=== PATIENT | female | born 1955 | race Caucasian/White ===

== ENCOUNTER 2019-07-24 19:16 | Emergency (ER) | payer BC, SELFPAY ==
[2019-07-24] VITALS (8 sets, daily range): BP systolic 109–161; BP diastolic 48–62; PULSE 82–92; RESP 15–18; TEMP 36.8; O2SAT 94–98; BMI 26.6
[2019-07-24 19:36] LABS: Basophils % 0.1 % (0.1-2.0); Eosinophils % 0.6 % (0.1-12.0); Hematocrit 37.5 % (37.0-47.0); Hemoglobin 12.2 g/dL (12.2-16.2); Lymphocytes # 2.3 K/mm3 (0.7-4.5); Lymphocytes % 45.2 % (10-50); Mean Corpuscular HGB Conc 32.7 g/dL (31.8-35.4); Mean Corpuscular Hemoglobin 31.1 pg (27.0-31.2); Mean Corpuscular Volume 95.1 fl (81-99); Mean Platelet Volume 8.4 fl (7.4-10.4); Monocytes # 0.1 K/mm3 (0.1-1.0); Monocytes % 2.1 % (1.7-9.3); Neutrophils # 2.6 K/mm3 (1.8-7.8); Platelet Count 224 K/mm3 (142-424); Red Blood Count 3.94 M/mm3 (4.20-5.40); Red Cell Distribution Width 13.4 % (11.5-17.5); White Blood Count 5.1 K/mm3 (4.8-10.8)
[2019-07-24 19:50] LABS: Chloride 110 mmol/L (98-107); Potassium 4.1 mmoL/L (3.5-5.1); Sodium 141 mmol/L (136-145)
[2019-07-24 19:53] LABS: Alanine Aminotransferase 20 U/L (12-78); Albumin/Globulin Ratio 1.6 (1.1-1.8); Alkaline Phosphatase 45 U/L (38-126); Anion Gap 9.1 mEq/L (5-15); Aspartate Amino Transferase 36 U/L (14-36); Bilirubin,Total 0.4 mg/dl (0.2-1.3); Blood Urea Nitrogen 31 mg/dl (7-17); Carbon Dioxide 26 mmol/L (22.0-30.0); Creatinine Clearance Estimated 50 mL/min (50-200); Estimated Glomerular Filt Rate 41 ml/min (>60); GFR (African American) 50 ML/MIN (>60); Globulin 2.5 g/dL (1.3-3.2); Total Protein,Serum 6.5 g/dl (6.3-8.2)
[2019-07-24 19:54] LABS: Calcium 8.6 mg/dl (8.4-10.2); Glucose 132 mg/dl (74-100)
--- NOTE | 2019-07-24 20:15 | HMH.EDGENADL ---
ED Disposition Clinical Impression: Allergic reaction Qualifiers: Encounter type: initial encounter Qualified Code(s): T78.40XA - Allergy, unspecified, initial encounter Disposition: Home, Self-Care Condition on Discharge: Good Instructions: DI for Insect Bites and Stings, DI for General Allergic Reactions Additional Instructions: You have been evaluated for allergic reaction. Please avoid insect stings. Use epinephrine pen if needed. Follow-up with your primary care doctor this week. Referrals: Provider,Referral, [Primary Care Provider] - - Critical Care Critical Care Time: Yes Attestation: On 07/24/19, the high probability of a clinically significant, sudden or life threatening deterioration of the following system(s) required my full and direct attention, intervention and personal management. The time I documented below is in addition to time spent performing reported procedures but includes the following listed in this critical care notation. Total Critical Care Time: 45 Vital system(s) involved:: Circulatory Failure, Central Nervous System My critical care processes included: Assessment & monitoring of V/S Comment: Critical care time was used for management of severe allergic reaction. Monitoring of vital signs. Administration of intramuscular and intravenous medications. Frequent reassessment. Medical Decision Making - Medical Records Medical records reviewed: Yes: I reviewed the patient's medical records. - Ezio Inquiry Pt receiving controlled substance: No Vital Signs: 07/24/19 19:17 Temperature 98.2 F Temperature Source Oral Pulse Rate [Left Radial] 89 Respiratory Rate 16 Blood Pressure [Right Arm] 161/62 H Blood Pressure Mean [Right Arm] 95 Blood Pressure Source [Right Arm] Automatic Cuff Blood Pressure Position [Right Arm] Sitting 02 Sat by Pulse Oximetry 98 Oxygen Delivery Method Nasal Cannula Oxygen Flow Rate (LPM) 3 - Lab Data Lab Results 07/24/19 19:24: WBC 5.1, RBC 3.94 L, Hgb 12.2, Hct 37.5, MCV 95.1, MCH 31.1, MCHC 32.7, RDW 13.4, Plt Count 224, MPV 8.4, Neut % (Auto) 52.0, Lymph % (Auto) 45.2, [place] % (Auto) 2.1, Eos % (Auto) 0.6, Baso % (Auto) 0.1, Neut # (Auto) 2.6, Lymph # (Auto) 2.3, [place] # (Auto) 0.1, Eos # (Auto) 0.0, Baso # (Auto) 0.0 07/24/19 19:24: Sodium 141, Potassium 4.1, Chloride 110 H, Carbon Dioxide 26, Anion Gap 9.1, BUN 31 H, Creatinine 1.30 H, Estimated Creat Clear 50, Estimated GFR 41 L, Est GFR ( Amer) 50 L, Glucose 132 H, Calcium 8.6, Total Bilirubin 0.4, AST 36, ALT 20, Alkaline Phosphatase 45, Total Protein 6.5, Albumin 4.0, Globulin 2.5, Albumin/Globulin Ratio 1.6 Result diagrams: 07/24/19 19:24 07/24/19 19:24 Orders (Tests/Meds): ED MEDICATIONS Generic Name Dose Route Start Last Admin Trade Name Freq PRN Reason Stop Dose Admin Sodium Chloride 1,000 mls @ 999 mls/hr 07/24/19 19:30 Sod Chlor 0.9% 1000ml Bag IV 07/24/19 20:30 .Q1H1M DIANE Sodium Chloride 8 ml 07/24/19 19:30 Sodium Chloride 0.9% 10ml Vial IV 08/23/19 19:29 NEEDED PRN dilute pepcid Discontinued Medications Generic Name Dose Route Start Last Admin Trade Name Freq PRN Reason Stop Dose Admin Epinephrine HCl 0.3 mg 07/24/19 19:30 Epinephrine 1mg/Ml Amp IM 07/24/19 19:31 ONCE ONE Famotidine 20 mg 07/24/19 19:30 Pepcid 20mg/2ml Vial IV 07/24/19 19:31 ONCE ONE Medical Decision Narrative: In summary this is a 64-year-old female presenting to the emergency department with an insect sting to her left cheek, concern for an acute allergic reaction. Patient appears uncomfortable on arrival to the emergency department. Vital signs are stable, no tachycardia or hypotension. She has more than 1 system involved in allergic reaction with her dizziness and nausea. Patient taken emergently to a critical room. Placed on a monitor. She was given 0.3 mg of IM epinephrine. She had already received 25 mg of Benadryl with EMS.
== END 2019-07-24 23:00 | disposition home or self-care (01) ==
PROVIDERS: Emergency Provider Emergency Medicine
DX: T63.461A Toxic effect of venom of wasps, accidental (unintentional), initial encounter (principal); W57.XXXA Bitten or stung by nonvenomous insect and other nonvenomous arthropods, initial encounter; Y92.017 Garden or yard in single-family (private) house as the place of occurrence of the external cause; I10 Essential (primary) hypertension; Z88.2 Allergy status to sulfonamides; Z79.899 Other long term (current) drug therapy
CPT/HCPCS: 80053; 85025; 96365; 96372; 96375; 99283

== ENCOUNTER → 2020-04-24 12:56 | Outpatient (CLI) | payer MEDICARE, SELFPAY ==
--- NOTE | 2020-04-24 13:01 | XR_ITS ---
PROCEDURE: XR DEXA AXIAL SKELETON CLINICAL HISTORY: OSTEOPOROSIS COMPARISON: No exams were available for comparison FINDINGS: The right hip BMD is 0.601 with a T-score of -2.2. The left hip BMD is 0.644 with a T-score of -2.4. The lumbar spine BMD is 1.232 with a T-score of 1.7. IMPRESSION: This patient is considered osteopenic according to the World Health Organization criteria. Bone density is between 10 and 25 percent below young normal. Fracture risk is moderate. Treatment is advised. Based on these results a follow-up exam is recommended in 2 year. Dictated by: Modesto Juarez MD 04/25/2020 00:32 Modesto Juarez MD in [place] 04/25/2020 11:43
== END ==
PROVIDERS: PCP Family Medicine; Visit Provider Family Medicine
DX: M81.0 Age-related osteoporosis without current pathological fracture (principal)
CPT/HCPCS: 77080

== ENCOUNTER → 2020-05-05 14:09 | Outpatient (CLI) | payer MEDICARE, SELFPAY ==
--- NOTE | 2020-05-05 14:12 | XR_ITS ---
PROCEDURE: XR FOOT WT BEARING RT 3V CLINICAL INDICATION: pain, hammertoe COMPARISON: No exams were available for comparison FINDINGS: No fracture or dislocation. No lytic or blastic change. There is normal mineralization. Prominent sesamoid bone is present at the distal and lateral aspect of the 1st metatarsal. There is hammertoe deformity of the 4th and 5th toes. Other findings:None. IMPRESSION: Hammertoe 4th and 5th Dictated by: Modesto Juarez MD 05/05/2020 18:33 Modesto Juarez MD in [place] 05/05/2020 18:33
--- NOTE | 2020-05-05 14:12 | XR_ITS ---
PROCEDURE: XR FOOT WT BEARING LT 3V CLINICAL INDICATION: pain, hammertoe COMPARISON: CR ANKR3 ANKLE-RT-3 VIEWS from 06/12/2016 FINDINGS: No fracture or dislocation. No lytic or blastic change. There is normal mineralization. Hammertoe 2nd and 3rd toe and 4th and 5th toes. Osteoarthritic change 1st metatarsal tarsal junction with mild widening of the 1st intermetatarsal space. Other findings:None. IMPRESSION: Degenerative changes as described above with hammertoe of the 2nd through 5th toes Dictated by: Modesto Juarez MD 05/05/2020 18:35 Modesto Juarez MD in [place] 05/05/2020 18:35
== END ==
PROVIDERS: PCP Family Medicine; Visit Provider Podiatrist
DX: M20.42 Other hammer toe(s) (acquired), left foot (principal); M20.41 Other hammer toe(s) (acquired), right foot
CPT/HCPCS: 73630

== ENCOUNTER → 2020-12-29 07:52 | Outpatient (CLI) | payer MEDICARE, SELFPAY ==
--- NOTE | 2020-12-29 | ECG_ITS ---
APPROVED REPORT Exam: Resting ECG HR:64 bpm ECG Measurements Heart Rate 64 AXES OR 132 P 13 QRSd 88 QRS 12 QT 382 T 17 QTc 394 Conclusion Normal sinus rhythm Normal ECG Electronically signed by : Virgil Sy MD 12/29/2020 22:09:07
[2020-12-29 08:14] LABS: Basophils % 0.4 % (0.1-2.0); Eosinophils # 0.1 K/mm3 (0.0-0.4); Eosinophils % 2.1 % (0.1-12.0); Hematocrit 39.1 % (37.0-47.0); Hemoglobin 12.8 g/dL (12.2-16.2); Lymphocytes # 1.8 K/mm3 (0.7-4.5); Lymphocytes % 25.5 % (10-50); Mean Corpuscular HGB Conc 32.7 g/dL (31.8-35.4); Mean Corpuscular Hemoglobin 30.6 pg (27.0-31.2); Mean Corpuscular Volume 93.4 fl (81-99); Monocytes # 0.3 K/mm3 (0.1-1.0); Monocytes % 4.9 % (1.7-9.3); Neutrophils # 4.6 K/mm3 (1.8-7.8); Neutrophils % 67.1 % (37.0-80.0); Platelet Count 236 K/mm3 (142-424); Red Blood Count 4.19 M/mm3 (4.20-5.40); Red Cell Distribution Width 13.7 % (11.5-17.5); White Blood Count 6.9 K/mm3 (4.8-10.8)
[2020-12-29 08:49] LABS: Alanine Aminotransferase 25 U/L (12-78); Albumin Level 4.3 g/dl (3.5-5.0); Albumin/Globulin Ratio 1.9 (1.1-1.8); Alkaline Phosphatase 41 U/L (38-126); Anion Gap 9.8 mEq/L (5-15); Aspartate Amino Transferase 37 U/L (14-36); Bilirubin,Total 0.4 mg/dl (0.2-1.3); Blood Urea Nitrogen 20 mg/dl (7-17); Calcium 9.1 mg/dl (8.4-10.2); Carbon Dioxide 28 mmol/L (22.0-30.0); Chloride 107 mmol/L (98-107); Estimated Glomerular Filt Rate 63 ml/min (>60); GFR (African American) 76 ML/MIN (>60); Globulin 2.3 g/dL (1.3-3.2); Glucose 95 mg/dl (74-100); Potassium 3.8 mmoL/L (3.5-5.1); Sodium 141 mmol/L (136-145); Total Protein,Serum 6.6 g/dl (6.3-8.2)
== END ==
PROVIDERS: Visit Provider Family Medicine
DX: Z01.818 Encounter for other preprocedural examination (principal)
CPT/HCPCS: 36415; 80053; 85025; 93005

== ENCOUNTER → 2021-10-12 12:48 | Outpatient (CLI) | payer MEDICARE, SELFPAY ==
--- NOTE | 2021-10-12 12:55 | XR_ITS ---
FINAL REPORT CLINICAL HISTORY: SOB COMPARISON: November 25, 2018 FINDINGS: Two views of the chest were obtained. The heart size and pulmonary vascularity are within normal limits. The mediastinum is normal. There is elevation of the left hemidiaphragm. There is mild left lung base atelectasis. There is no pneumothorax. The bony thorax is intact. IMPRESSION: Mild left lung base atelectasis. Reviewed, Interpreted and Dictated by Mckay Dunaway III, MD Transcribed by Luda Albert Authenticated and [facility]
== END ==
PROVIDERS: PCP Family Medicine; Visit Provider Family Medicine
DX: R06.02 Shortness of breath (principal)
CPT/HCPCS: 71046

== ENCOUNTER → 2021-11-23 10:25 | Outpatient (CLI) | payer MEDICARE, OTHER, SELFPAY ==
--- NOTE | 2021-11-23 10:29 | XR_ITS ---
FINAL REPORT CLINICAL HISTORY: ATELECTASIS OF LT LUNG COMPARISON: 10/12/2021 FINDINGS: TWO-VIEW CHEST The heart size is normal. There is an elevated left hemidiaphragm, stable. The lungs are clear. There is no pneumothorax. IMPRESSION: No acute cardiopulmonary process. Reviewed, Interpreted and Dictated by Mckay Dunaway III, MD Transcribed by Jes Garvey Authenticated and . [facility]
== END ==
PROVIDERS: PCP Family Medicine; Visit Provider Family Medicine
DX: J98.11 Atelectasis (principal)
CPT/HCPCS: 71046

== ENCOUNTER → 2022-06-02 15:16 | Outpatient (CLI) | payer MEDICARE, OTHER, SELFPAY | PROVIDERS: PCP Family Medicine; Visit Provider Family Medicine | DX: R06.09 Other forms of dyspnea (principal) | CPT/HCPCS: 93306 ==

== ENCOUNTER → 2022-06-15 14:17 | Outpatient (POV) | payer MEDICARE, OTHER, SELFPAY | PROVIDERS: Visit Provider Specialist/Technologist | DX: Z00.00 Encounter for general adult medical examination without abnormal findings (principal) ==

== ENCOUNTER → 2022-06-21 08:00 | Outpatient (CLI) | payer MEDICARE, OTHER, SELFPAY ==
[2022-06-21 08:55] VITALS: PULSE 87; PULSE 90
== END ==
PROVIDERS: PCP Family Medicine; Visit Provider Family Medicine
DX: R06.09 Other forms of dyspnea (principal); R06.02 Shortness of breath
CPT/HCPCS: 94060; 94640; 94727; 94729

== ENCOUNTER → 2022-10-28 07:43 | Outpatient (CLI) | payer MEDICARE, OTHER, SELFPAY ==
--- NOTE | 2022-10-28 07:44 | FL_ITS ---
FINAL REPORT CLINICAL HISTORY: soa DAP 307.65 Fluoro time 0.59 FINDINGS: SNIFF TEST HISTORY: Shortness of breath. PROCEDURE: Fluoroscopy was utilized to observe the motion of the hemidiaphragms during normal respirations and while the patient was sniffing. FINDINGS: Examination is somewhat limited due to small field of view. The left hemidiaphragm is elevated. There appears to be paradoxical movement of the left michael-diaphragm. The right hemidiaphragm moves appropriately. A total of 8 cine runs were saved. 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 Reviewed, Interpreted and Dictated by Mckay Dunaway III, MD Transcribed by Ingrid Lambert PA-C Authenticated and [facility]
== END ==
PROVIDERS: PCP Family Medicine; Visit Provider Internal Medicine Pulmonary Disease
DX: J98.6 Disorders of diaphragm (principal)
CPT/HCPCS: 76000

== ENCOUNTER 2023-01-08 09:58 | Emergency (ER) | payer MEDICARE, OTHER, SELFPAY ==
[2023-01-08 11:00] VITALS: BP 133/65; PULSE 88; RESP 21; TEMP 37.4; O2SAT 97; BMI 27.4
--- NOTE | 2023-01-08 11:19 | EXP.UTC ---
Discharge Plan Disposition Patient Disposition: Home, Self-Care Condition: Good Prescriptions Prescriptions: New methylprednisolone [Medrol (Maurice)] 4 mg tablets,dose pack See Rx Instructions .Route .COMPLEX 6 Days Qty: 21 0RF Rx Instructions: taper pack; amoxicillin-pot clavulanate 875-125 mg Tablet 1 tab PO Q12H Qty: 14 0RF No Action gabapentin 300 mg capsule 300 mg PO DAILY alendronate 70 mg tablet 70 mg PO WEEKLY amlodipine 5 mg tablet 5 mg PO DAILY omeprazole 40 mg capsule,delayed release(DR/EC) 40 mg PO DAILY irbesartan 300 mg tablet 300 mg PO DAILY budesonide-formoterol [Symbicort] 80-4.5 mcg/actuation HFA aerosol inhaler 1 inh inhalation BID 90 Days Qty: 10.2 2RF citalopram 20 MG tablet 10 mg PO DAILY bupropion HCl 300 MG tablet extended release 24 hr 300 mg PO DAILY epinephrine 0.3 MG/0.3 ML auto-injector 0.3 mg IM ONCE Qty: 1 0RF Referrals Follow up/Referrals: Cuba Mcneill MD [Primary Care Provider] - See instructions Activity Restrictions/Add. Instructions Additional Instructions/Restrictions: *Monitor Temp, Over the counter Motrin or Tylenol as directed/as needed Tylenol every 4 hours and Motrin every 6 hours (as long as your family doctor has told you that you can take it) for fever or pain. and straight to ER if unable to lower temp less than 101.0 after medication given *Warm salt water gargles may help to soothe the throat *Throat Lozenges? *Warm fluids like tea with honey may help to soothe the throat? *Sleep elevated *Humidifier/Vaporizer Take medication as prescribed Follow up IMMEDIATELY for new or worsening symptoms or no Noticeable improvement over the next 48-72 hours. 911 for difficulty breathing or swallowing Clinical Impressions Clinical Impression: Sinusitis Qualifiers: Sinusitis location: unspecified location Chronicity: unspecified Qualified Code(s): J32.9 - Chronic sinusitis, unspecified Instructions Patient Instructions: DI for Sinusitis, Sinusitis Discharge ED Provider: Sarah Gonzalez [facility] General Stated complaint: possible sinus infection Mode of Arrival: Ambulatory Source of Information: Patient Limitations: No Limitations Time Seen by Provider: 01/08/23 11:19 Description of Symptoms (Recalled from Triage Doc. by RN): PATIENT C/O COUGH, SINUS HEADACHE/PRESSURE, AND GREEN SINUS DRAINAGE X 3-4 DAYS HEENT Symptoms (Recalled from RN notes): Yes Resp Symptoms (Recalled from RN notes): Yes Skin Symptoms (Recalled from RN notes): No MS Symptoms (Recalled from RN notes): No Functional Status (Recalled from RN notes): WNL History of Present Illness Provider Complaint: Patient states that she has been fighting a sinus infection for awhile but over the last 4-5 days it has got worse and her drainage changed colors and at times she is blowing out thick greenish colored mucous States today the pressure behind her eyes was worse and she was having a headache so she came in to get checked Related Data Home Medications Medication Instructions Recorded Confirmed bupropion HCl 300 mg 24 hr tablet, 300 mg PO DAILY mood 05/24/18 11/03/22 extended release citalopram 20 mg tablet 10 mg PO DAILY Depression 05/24/18 11/03/22 amlodipine 5 mg tablet 5 mg PO DAILY 04/25/22 11/03/22 irbesartan 300 mg tablet 300 mg PO DAILY 04/25/22 11/03/22 omeprazole 40 mg capsule,delayed 40 mg PO DAILY 04/25/22 11/03/22 release alendronate 70 mg tablet 70 mg PO WEEKLY 06/20/22 11/03/22 gabapentin 300 mg capsule 300 mg PO DAILY 06/20/22 11/03/22 Previous Rx's Medication Instructions Recorded epinephrine 0.3 mg/0.3 mL 0.3 mg (0.3 mL) IM ONCE ##1 07/24/19 injection, auto-injector budesonide-formoterol HFA 80 1 inh inhalation BID shortness of 11/03/22 mcg-4.5 mcg/actuation aerosol breath or wheezing 90 days #10.2 inhaler (Symbicort) grams amoxicillin 875 mg-potassium 1 t
[2023-01-08 11:32] VITALS: BP 133/65; PULSE 88; RESP 21; TEMP 37.4; O2SAT 97
== END 2023-01-08 11:34 | disposition home or self-care (01) ==
PROVIDERS: Emergency Provider Nurse Practitioner; PCP Family Medicine
DX: J01.90 Acute sinusitis, unspecified (principal); R51.9 Headache, unspecified; R09.81 Nasal congestion; R09.82 Postnasal drip; J45.909 Unspecified asthma, uncomplicated; K21.9 Gastro-esophageal reflux disease without esophagitis
CPT/HCPCS: 99204; 99212; G0463

== ENCOUNTER → 2023-01-12 09:02 | Outpatient (POV) | payer MEDICARE, OTHER, SELFPAY ==
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
[2023-01-12 09:56] VITALS: BP 147/69; PULSE 83; RESP 18; O2SAT 95; BMI 27.4
== END ==
PROVIDERS: PCP Family Medicine; Visit Provider Nurse Practitioner Family
DX: M26.609 Unspecified temporomandibular joint disorder, unspecified side (principal); H93.11 Tinnitus, right ear
CPT/HCPCS: 99202; G0463

== ENCOUNTER 2023-01-20 13:27 | Day surgery (SDC) | payer MEDICARE, OTHER, SELFPAY ==
[2023-01-20 13:41] VITALS: BP 124/63; PULSE 87; RESP 18; O2SAT 94; BMI 27.1
[2023-01-20 14:05] VITALS: BP 110/63; PULSE 82; RESP 18; O2SAT 97
[2023-01-20 14:06] VITALS: BP 110/63; PULSE 82; RESP 18; O2SAT 97
[2023-01-20 14:14] VITALS: BP 109/55; PULSE 81; RESP 20
--- NOTE | 2023-01-20 15:42 | P.PCN_ITS ---
Procedure Date: 01/20/23 Time: 15:42 Anesthesiologist:: Isaias Ferrer MD Complications:: None Pre-procedure Diagnosis:: Right-sided TMJ dysfunction Post-procedure Diagnosis:: Same Indications for Procedure:: This patient a pleasant 67-year-old white female who was referred from [facility] with right-sided TMJ dysfunction. She does grind her teeth with right-sided jaw pain. We will do a right TMJ injection today to see if this will help with her symptoms. Procedure Details:: Temporomandibular joint injection Informed consent was obtained risk and benefits of the procedure were explained to the patient. Patient was taken the procedure room. The area in front of the right tragus was prepped using alcohol prep. A 25-gauge needle was then inserted and advanced into the right temporomandibular joint. We injected 3 mL lidocaine 1% and Depo-Medrol 40 mg into the right temporomandibular joint. The patient tolerated the procedure well with no complications. Plan and Disposition:: Will follow-up with this patient in 2 weeks. Will reevaluate symptoms at that time.
--- NOTE | 2023-01-20 15:45 | P.PCN_ITS ---
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 She has right-sided pain over her eye. This is in the distribution of the supraorbital nerve. We will plan on a right supraorbital nerve block today to see if this helps with her right-sided eye pain. Procedure Details:: Supraorbital nerve block Informed consent was obtained risk and benefits of the procedure were explained to the patient. Patient was taken to the procedure room she was placed supine on the procedure table. The area over the right eye was prepped using an alcohol prep. A 25-gauge needle was inserted and we injected 5 mL lidocaine 1% and Depo-Medrol 40 mg into the area of the right supraorbital nerve. The kajal ent tolerated the procedure well with no complications. Plan and Disposition:: Will follow-up with this patient in 2 weeks. Will reevaluate her symptoms at that time.
== END 2023-01-20 14:15 | disposition home or self-care (01) ==
LOC: SC.PAINP 13:28
PROVIDERS: PCP Family Medicine; Visit Provider Anesthesiology
DX: M26.601 Right temporomandibular joint disorder, unspecified (principal); R68.84 Jaw pain
CPT/HCPCS: 20605; J1040

== ENCOUNTER 2023-02-13 15:43 | Emergency (ER) | payer MEDICARE, OTHER, SELFPAY ==
[2023-02-13 16:30] VITALS: BP 120/60; PULSE 90; RESP 22; TEMP 37.8; O2SAT 95; BMI 26.9
[2023-02-13 16:53] VITALS: BP 120/60; PULSE 90; RESP 22; TEMP 37.8; O2SAT 95
[2023-02-13 16:53] LABS: UTC Influenza A Antigen Positive (Negative); UTC Influenza B Antigen Negative (Negative)
--- NOTE | 2023-02-13 16:58 | ED_ITS ---
Discharge Plan Disposition Patient Disposition: Home, Self-Care Condition: Good Prescriptions Prescriptions: New oseltamivir [Tamiflu] 75 mg capsule 75 mg PO Q12H 5 Days Qty: 10 0RF promethazine-DM 6.25-15 mg/5 mL syrup 5 ml PO Q6H PRN (Reason: cough) Qty: 118 0RF guaifenesin [Mucinex] 600 mg tablet extended release 12hr 600 mg PO BID PRN (Reason: cough) Qty: 20 0RF No Action gabapentin 300 mg capsule 300 mg PO DAILY alendronate 70 mg tablet 70 mg PO WEEKLY amlodipine 5 mg tablet 5 mg PO DAILY omeprazole 40 mg capsule,delayed release(DR/EC) 40 mg PO DAILY irbesartan 300 mg tablet 300 mg PO DAILY budesonide-formoterol [Symbicort] 80-4.5 mcg/actuation HFA aerosol inhaler 2 inh inhalation BID 90 Days Qty: 10.2 2RF citalopram 20 MG tablet 10 mg PO DAILY bupropion HCl 300 MG tablet extended release 24 hr 300 mg PO DAILY epinephrine 0.3 MG/0.3 ML auto-injector 0.3 mg IM ONCE Qty: 1 0RF Referrals Follow up/Referrals: Cuba Mcneill MD [Primary Care Provider] - See instructions Activity Restrictions/Add. Instructions Additional Instructions/Restrictions: * Start Tamiflu today if you are going to take it. Discussed risk and possible benefits. * Lots of rest * Increase Fluids water, Gatorade, powerade, pedialyte,if infant/toddler/child * Alternate Tylenol and / or ibuprofen as discussed for fever, aches, chills Follow up IMMEDIATELY with your family doctor for new or worsening Symptoms OR no noticeable improvement over the next 48-72 hours, 911 for difficulty or breathing * You or your child area contagious until no fever, aches, chills for 24 hours with medication for symptoms * Help Prevent the spread of influenza: * ?Wash your hands often. Use soap and water. Wash your hands after you use the bathroom, change a child's diapers, or sneeze. Wash your hands before you prepare or eat food. Use gel hand cleanser that has 60% alcohol, when soap and water are not available. Do not touch your eyes, nose, or mouth unless you have washed your hands first. * Cover your mouth when you sneeze or cough. Cough into a tissue or the bend of your arm. If you use a tissue, throw it away immediately and wash your hands. * Clean shared items with a germ-killing top cleaner. Clean table surfaces, doorknobs, and light switches. Do not share towels, silverware, and dishes with people who are sick. Wash bed sheets, towels, silverware, and dishes with soap and water. * Wear a mask over your mouth and nose if you are sick. The face mask may help protect others from becoming infected with the flu. Wear the mask when in common areas of your home or if you seek care with a healthcare provider. * Stay away from others if you are sick. Stay at home until 24 hours after your fever and symptoms are gone. Clinical Impressions Clinical Impression: Influenza Instructions Patient Instructions: Influenza, DI for Influenza -- Adult Discharge ED Provider: Sarah Gonzalez [facility] [place] Stated complaint: cough, SOA, congestion Mode of Arrival: Ambulatory Source of Information: Patient Limitations: No Limitations Time Seen by Provider: 02/13/23 16:59 Description of Symptoms (Recalled from Triage Doc. by RN): PATIENT C/O COUGH, SOA, HEADACHE AND CONGESTION X 3 DAYS HEENT Symptoms (Recalled from RN notes): Yes Resp Symptoms (Recalled from RN notes): Yes Skin Symptoms (Recalled from RN notes): No MS Symptoms (Recalled from RN notes): No Functional Status (Recalled from RN notes): WNL History of Present Illness Provider Complaint: Patient states that she has been having cough, sinus congestion, fever, chills, body aches and coughing so much at times it makes her feels SOA States that she hasnt felt in the last couple of days worried that she may have the flu or something Related Data Home Medications Medication Instructions Recorded Confirmed bupropion HCl 300 mg 24 hr tablet, 300 mg PO DAILY mood 05/24/18 02/02/23 extended release citalopram 20 mg tablet 10 mg PO DAILY Depression 05/24/18 02/02/23 amlodipine 5 mg tablet 5 mg PO DAILY 04/25/22 02/02/23 irbesartan 300 mg tablet 300 mg PO DAILY 04/25/22 02/02/23 omeprazole 40 mg capsule,delayed 40 mg PO DAILY 04/25/22 02/02/23 release alendronate 70 mg tablet 70 mg PO WEEKLY 06/20/22 02/02/23 gabapentin 300 mg capsule 300 mg PO DAILY 06/20/22 02/02/23 Previous Rx's Medication Instructions Recorded epinephrine 0.3 mg/0.3 mL 0.3 mg (0.3 mL) IM ONCE ##1 07/24/19 injection, auto-injector budesonide-formoterol HFA 80 2 inh inhalation BID shortness of 02/02/23 mcg-4.5 mcg/actuation aerosol breath or wheezing 90 days #10.2 inhaler (Symbicort) grams guaifenesin 600 mg tablet, 600 mg PO BID PRN cough #20 tabs 02/13/23 extended release 12 hr (Mucinex) oseltamivir 75 mg capsule (Tamiflu) 75 mg PO Q12H 5 days #10 caps 02/13/23 promethazine-DM 6.25 mg-15 mg/5 mL 5 ml PO Q6H PRN cough #118 mL 02/13/23 oral syrup Allergies Allergy/AdvReac Type Severity Reaction Status Date / Time Sulfa (Sulfonamide Allergy Unknown Verified 02/02/23 11:17 Antibiotics) [SULFA (SULFONAMIDE ANTIBIOTICS)] Worker's Comp Is this a Worker's Comp case?: No [facility] Disclaimer: The information contained in this section may have been updated after the patient was seen, as this information can be updated by other users. Medical History Arthritis Asthma Depression Diaphragm dysfunction Dyspnea on exertion Elevated diaphragm GERD (gastroesophageal reflux disease) History of 2019 novel coronavirus disease (COVID-19) Scoliosis Tinnitus Tinnitus of right ear TMJ (temporomandibular joint disorder) Surgical History H/O total hysterectomy History of arthroscopy of both knees History of carpal tunnel release of both wrists Hx of colonoscopy Family History Other Cancer Social History Smoking Status: Never smoker alcohol intake: never current occupational status: retired Travel in the last 8 weeks: None household members: spouse ROS Obtained: Yes All systems reviewed & no additional complaints except as documented and Yes Systems reviewed as appropriate & no additional complaints except as documented Constitutional Constitutional: Reports system reviewed and no additional complaints, except as documented, Reports as per HPI, Reports body ache, Reports chills, Reports fever(s) and Reports headache(s) ENT Ears, Nose, Mouth, and Throat: Reports system reviewed and no additional complaints, except as documented, Reports as per HPI, Reports headache(s) and Reports nasal congestion Cardiovascular Cardiovascular: Reports system reviewed and no additional complaints, except as documented and Reports as per HPI Respiratory Respiratory: Reports system reviewed and no additional complaints, except as documented, Reports as per HPI, Reports shortness of breath (after coughing) and Reports cough Gastrointestinal Gastrointestingal: Reports system reviewed and no additional complaints, except as documented and as per HPI Neurologic Neurologic: Reports headache(s) Physical Exam General General appearance: alert and in no apparent distress ENT ENT exam: Present mucous membranes moist Expanded ENT Exam Nose exam: Absent sinus tenderness Throat exam: Present normal inspection Respiratory Respiratory exam: Present normal lung sounds bilaterally; Absent respiratory distress or wheezes Cardiovascular Cardiovascular exam: Present regular rate, normal rhythm and normal heart sounds Neurological Exam Neurological exam: Present alert, oriented X3 and normal gait Medical Decision Making Ezio Inquiry Pt receiving controlled substance: No Ezio was queried for this patient: No Vital Signs: 02/13/23 16:30 02/13/23 16:53 Temperature 100.1 F H 100.1 F H Temperature Source Oral Pulse Rate 90 Pulse Rate [Right Brachial] 90 Respiratory Rate 22 22 Blood Pressure 120/60 Blood Pressure [Right Arm] 120/60 Blood Pressure Mean [Right Arm] 80 Blood Pressure Source [Right Arm] Automatic Cuff Blood Pressure Position [Right Arm] Sitting 02 Sat by Pulse Oximetry 95 Oxygen Delivery Method Room Air Lab Data Lab results reviewed: Yes I reviewed the patient's lab results. Lab Results 02/13/23 16:45: Influenza Type A Ag Positive A, Influenza Type B Ag Negative
== END 2023-02-13 17:27 | disposition home or self-care (01) ==
PROVIDERS: Emergency Provider Nurse Practitioner; PCP Family Medicine
DX: J10.1 Influenza due to other identified influenza virus with other respiratory manifestations (principal); R06.02 Shortness of breath; R51.9 Headache, unspecified; R05.9 Cough, unspecified; R09.81 Nasal congestion; R50.9 Fever, unspecified; M79.18 Myalgia, other site; K21.9 Gastro-esophageal reflux disease without esophagitis
CPT/HCPCS: 87804; 99212; 99214; G0463

== ENCOUNTER 2023-04-05 08:33 | Emergency (ER) | payer MEDICARE, OTHER, SELFPAY ==
[2023-04-05 09:20] VITALS: BP 121/64; PULSE 87; RESP 16; TEMP 37.2; O2SAT 94; BMI 26.6
--- NOTE | 2023-04-05 09:27 | ED_ITS ---
Discharge Plan Disposition Patient Disposition: Home, Self-Care Condition: Good Prescriptions Prescriptions: New amoxicillin-pot clavulanate 875-125 mg Tablet 1 tab PO Q12H 7 Days Qty: 14 0RF guaifenesin [Mucinex] 600 mg tablet extended release 12hr 1,200 mg PO BID PRN (Reason: cough) Qty: 20 0RF fluticasone propionate [Flonase Allergy Relief] 50 mcg/actuation spray,suspension 2 spray intranasal DAILY Qty: 16 0RF Rx Instructions: administer into each nostril daily No Action gabapentin 300 mg capsule 300 mg PO DAILY alendronate 70 mg tablet 70 mg PO WEEKLY amlodipine 5 mg tablet 5 mg PO DAILY omeprazole 40 mg capsule,delayed release(DR/EC) 40 mg PO DAILY irbesartan 300 mg tablet 300 mg PO DAILY budesonide-formoterol [Symbicort] 80-4.5 mcg/actuation HFA aerosol inhaler 2 inh inhalation BID 90 Days Qty: 10.2 2RF citalopram 20 MG tablet 10 mg PO DAILY bupropion HCl 300 MG tablet extended release 24 hr 300 mg PO DAILY epinephrine 0.3 MG/0.3 ML auto-injector 0.3 mg IM ONCE Qty: 1 0RF oseltamivir [Tamiflu] 75 mg capsule 75 mg PO Q12H 5 Days Qty: 10 0RF promethazine-DM 6.25-15 mg/5 mL syrup 5 ml PO Q6H PRN (Reason: cough) Qty: 118 0RF guaifenesin [Mucinex] 600 mg tablet extended release 12hr 600 mg PO BID PRN (Reason: cough) Qty: 20 0RF Referrals Follow up/Referrals: Cuba Mcneill MD [Primary Care Provider] - See instructions Activity Restrictions/Add. Instructions Additional Instructions/Restrictions: *Monitor Temp, Over the counter Motrin or Tylenol as directed/as needed Tylenol every 4 hours and Motrin every 6 hours (as long as your family doctor has told you that you can take it) for fever or pain. and straight to ER if unable to lower temp less than 101.0 after medication given *Warm salt water gargles may help to soothe the throat *Throat Lozenges? *Warm fluids like tea with honey may help to soothe the throat? *Sleep elevated *Humidifier/Vaporizer *Flonase 2 sprays in each nostril daily but be aware that it may take 2-3 days before you notice improvement Your throat swab was sent for culture. Those results are typically sent to your primary care. Be sure to follow up in 2-3 days with your family doctor/primary care physician if no improvement so they can review those result and treat if necessary. If you don?t have a primary care doctor, I recommend you get one but in the mean time, you will have to return to a walk in clinic Follow up IMMEDIATELY for new or worsening symptoms or no Noticeable improvement over the next 48-72 hours. 911 for difficulty breathing or swallow ing Clinical Impressions Clinical Impression: Otitis media Qualifiers: Otitis media type: unspecified Laterality: left Qualified Code(s): H66.92 - Otitis media, unspecified, left ear Instructions Patient Instructions: DI for Sinusitis, Sore Throat, Middle Ear Infection Discharge ED Provider[place] [facility] [place] General Stated complaint: sore throat, ear pain, cough Mode of Arrival: Ambulatory Source of Information: Patient Limitations: No Limitations Time Seen by Provider: 04/05/23 09:27 Description of Symptoms (Recalled from Triage Doc. by RN): Patient reports sore throat, ear pain and cough. HEENT Symptoms (Recalled from RN notes): Yes Resp Symptoms (Recalled from RN notes): No Skin Symptoms (Recalled from RN notes): No MS Symptoms (Recalled from RN notes): No Functional Status (Recalled from RN notes): wnl History of Present Illness Provider Complaint: Patient states that she has been having sore throat pain in her ears, cough and loss of voice for several days States that today she was still not feeling any better so she came in to get checked Related Data Home Medications Medication Instructions Recorded Confirmed bupropion HCl 300 mg 24 hr tablet, 300 mg PO DAILY mood 05/24/18 02/02/23 extended release citalopram 20 mg tablet 10 mg PO DAILY Depression 05/24/18 02/02/23 amlodipine 5 mg tablet 5 mg PO DAILY 04/25/22 02/02/23 irbesartan 300 mg tablet 300 mg PO DAILY 04/25/22 02/02/23 omeprazole 40 mg capsule,delayed 40 mg PO DAILY 04/25/22 02/02/23 release alendronate 70 mg tablet 70 mg PO WEEKLY 06/20/22 02/02/23 gabapentin 300 mg capsule 300 mg PO DAILY 06/20/22 02/02/23 Previous Rx's Medication Instructions Recorded epinephrine 0.3 mg/0.3 mL 0.3 mg (0.3 mL) IM ONCE ##1 07/24/19 injection, auto-injector budesonide-formoterol HFA 80 2 inh inhalation BID shortness of 02/02/23 mcg-4.5 mcg/actuation aerosol breath or wheezing 90 days #10.2 inhaler (Symbicort) grams guaifenesin 600 mg tablet, 600 mg PO BID PRN cough #20 tabs 02/13/23 extended release 12 hr (Mucinex) oseltamivir 75 mg capsule (Tamiflu) 75 mg PO Q12H 5 days #10 caps 02/13/23 promethazine-DM 6.25 mg-15 mg/5 mL 5 ml PO Q6H PRN cough #118 mL 02/13/23 oral syrup amoxicillin 875 mg-potassium 1 tab PO Q12H 7 days #14 tabs 04/05/23 clavulanate 125 mg tablet fluticasone propionate 50 2 spray intranasal DAILY #16 grams 04/05/23 mcg/actuation nasal spray,suspension (Flonase Allergy Relief) guaifenesin 600 mg tablet, 1,200 mg PO BID PRN cough #20 tabs 04/05/23 extended release 12 hr (Mucinex) Allergies Allergy/AdvReac Type Severity Reaction Status Date / Time Sulfa (Sulfonamide Allergy Unknown Verified 02/02/23 11:17 Antibiotics) [SULFA (SULFONAMIDE ANTIBIOTICS)] Worker's Comp Is this a Worker's Comp case?: No [facility] Disclaimer: The information contained in this section may have been updated after the patient was seen, as this information can be updated by other users. Medical History Arthritis Asthma Depression Diaphragm dysfunction Dyspnea on exertion Elevated diaphragm GERD (gastroesophageal reflux disease) History of 2019 novel coronavirus disease (COVID-19) Scoliosis Tinnitus Tinnitus of right ear TMJ (temporomandibular joint disorder) Surgical History H/O total hysterectomy History of arthroscopy of both knees History of carpal tunnel release of both wrists Hx of colonoscopy Family History Other Cancer Social History Smoking Status: Never smoker alcohol intake: never current occupational status: retired Travel in the last 8 weeks: None household members: spouse ROS Obtained: Yes All systems reviewed & no additional complaints except as documented and Yes Systems reviewed as appropriate & no additional complaints except as documented Constitutional Constitutional: Reports system reviewed and no additional complaints, except as documented and Reports as per HPI ENT Ears, Nose, Mouth, and Throat: Reports system reviewed and no additional complaints, except as documented and Reports as per HPI Cardiovascular Cardiovascular: Reports system reviewed and no additional complaints, except as documented and Reports as per HPI Physical Exam General General appearance: alert and in no apparent distress ENT ENT exam: Present mucous membranes moist Expanded ENT Exam TM/Canal exam: Left TM: erythema and bulging Nose exam: Present sinus tenderness Throat exam: Present other (Pharyngeal erythema noted with PND) Respiratory Respiratory exam: Present normal lung sounds bilaterally; Absent respiratory distress or wheezes Cardiovascular Cardiovascular exam: Present regular rate, normal rhythm and normal heart sounds Abdominal Exam Abdominal exam: Present soft and normal bowel sounds; Absent distention or tenderness Neurological Exam Neurological exam: Present alert, oriented X3 and normal gait Medical Decision Making Ezio Inquiry Pt receiving controlled substance: No Ezio was queried for this patient: No Vital Signs: 04/05/23 09:20 Temperature 99.0 F Temperature Source Oral Pulse Rate [Radial] 87 Respiratory Rate 16 Blood Pressure [Right Arm] 121/64 Blood Pressure Mean [Right Arm] 83 Blood Pressure Source [Right Arm] Automatic Cuff Blood Pressure Position [Right Arm] Sitting 02 Sat by Pulse Oximetry 94 L Oxygen Delivery Method Room Air Lab Data Lab results reviewed: Yes I reviewed the patient's lab results.
[2023-04-05 09:43] VITALS: BP 121/64; PULSE 87; RESP 16; TEMP 37.2; O2SAT 94
[2023-04-05 12:00] LABS: UTC Strep Screen (Rapid) Negative (Negative)
[2023-04-05 12:01] LABS: UTC Influenza A Antigen Negative (Negative); UTC Influenza B Antigen Negative (Negative)
== END 2023-04-05 09:44 | disposition home or self-care (01) ==
PROVIDERS: Emergency Provider Nurse Practitioner; PCP Family Medicine
DX: H66.92 Otitis media, unspecified, left ear (principal); R05.9 Cough, unspecified; R07.0 Pain in throat; K21.9 Gastro-esophageal reflux disease without esophagitis
CPT/HCPCS: 87804; 87880; 99212; 99214; G0463

== ENCOUNTER 2023-07-26 09:56 | Outpatient (POV) | payer MEDICARE, OTHER, SELFPAY | END 2023-07-26 23:59 | disposition home or self-care (01) | LOC: SC 09:56 | PROVIDERS: Visit Provider Specialist/Technologist | DX: Z00.00 Encounter for general adult medical examination without abnormal findings (principal) ==

== ENCOUNTER 2023-08-21 13:33 | Outpatient (CLI) | payer MEDICARE, OTHER, SELFPAY ==
--- NOTE | 2023-08-21 13:35 | MR_ITS ---
FINAL REPORT CLINICAL HISTORY: SNHL and Mixed hearing loss, right ear. BILATERAL EAR PAIN. HEADACHE COMPARISON: None FINDINGS: Multiplanar MR imaging of the brain was performed without and with contrast, with attention to the posterior fossa, cerebellopontine angles and internal auditory canals. There is no evidence of intracranial hemorrhage or mass. Mild age-appropriate atrophy is present. There is no evidence of shift of the midline structures. No area of abnormal restricted diffusion is identified. Normal major vessel vascular flow voids are seen. No abnormal contrast enhancement is identified within the brain. No mass or abnormal contrast enhancement is seen within the cerebellopontine angles or internal auditory canals. No focal abnormality is identified of the temporal bones. IMPRESSION: No acute intracranial abnormality identified. No mass or abnormal contrast enhancement identified within the cerebellopontine angles or internal auditory canals. Mild age-appropriate atrophy is present. Reviewed, Interpreted and Dictated by Mckay Dunaway III, MD Transcribed by Claudette Bennett Authenticated and [facility]
[2023-08-21] MEDS: GADOTERIDOL INJ 20ML SYRINGE 15 ML IV (14:32)
[2023-08-21] MEDS: SODIUM CHLORIDE 0.9% 10ML FLUSH SYRINGE 10 ML IV (14:33)
== END 2023-08-21 23:59 | disposition home or self-care (01) ==
LOC: RAD 13:35
PROVIDERS: PCP Family Medicine; Visit Provider Otolaryngology
DX: H90.71 Mixed conductive and sensorineural hearing loss, unilateral, right ear, with unrestricted hearing on the contralateral side (principal); H90.5 Unspecified sensorineural hearing loss; S03.00XA Dislocation of jaw, unspecified side, initial encounter
CPT/HCPCS: 70553; A9576

== ENCOUNTER 2023-08-24 10:09 | Outpatient (CLI) | payer MEDICARE, OTHER, SELFPAY ==
--- NOTE | 2023-08-24 10:13 | XR_ITS ---
FINAL REPORT CLINICAL HISTORY: Foot Pain COMPARISON: 05/05/2020 FINDINGS: LEFT FOOT Three views of the left foot demonstrate no acute fracture or dislocation. There is severe degenerative change at the medial cuneiform metatarsal joint with subchondral cysts present. There is a soft tissue calcification extending laterally. Mild degenerative changes are noted elsewhere in the foot. There are multiple hammertoes. IMPRESSION: Degenerative/chronic changes without acute bony abnormality. Reviewed, Interpreted and Dictated by Mckay Dunaway III, MD Transcribed by Venita Michael Authenticated and [facility]
--- NOTE | 2023-08-24 10:13 | XR_ITS ---
FINAL REPORT CLINICAL HISTORY: Foot pain COMPARISON: 05/05/2020 FINDINGS: RIGHT FOOT 3 views of the right foot were obtained. There is no acute fracture or dislocation. There is mild degenerative change. Chronic calcification is noted extending laterally from the head of the first metatarsal. Soft tissues are unremarkable. IMPRESSION: Degenerative/chronic changes without acute bony abnormality. Reviewed, Interpreted and Dictated by Mckay Dunaway III, MD Transcribed by Venita Michael Authenticated and . [facility]
== END 2023-08-24 23:59 | disposition home or self-care (01) ==
LOC: RAD 10:10
PROVIDERS: PCP Family Medicine; Visit Provider Podiatrist
DX: M79.671 Pain in right foot; M79.672 Pain in left foot
CPT/HCPCS: 73630

== ENCOUNTER 2023-10-09 15:08 | Outpatient (POV) | payer MEDICARE, OTHER, SELFPAY ==
[2023-10-09 15:20] VITALS: BP 134/75; PULSE 75; RESP 16; O2SAT 96; BMI 26.6
--- NOTE | 2023-10-09 15:47 | EXP.PAIN.SOA ---
[facility] Disclaimer: The information contained in this section may have been updated after the patient was seen, as this information can be updated by other users. Medical History (Updated 08/29/23 @ 11:17 by Veda Tipton APRN) Left ear pain Chronic otitis externa Mixed hearing loss of right ear SNHL (sensorineural hearing loss) TMJ (dislocation of temporomandibular joint) Asthma Diaphragm dysfunction Scoliosis History of 2019 novel coronavirus disease (COVID-19) Elevated diaphragm Dyspnea on exertion Arthritis GERD (gastroesophageal reflux disease) Depression TMJ (temporomandibular joint disorder) Tinnitus Tinnitus of right ear Surgical History Hx of colonoscopy H/O total hysterectomy History of arthroscopy of both knees History of carpal tunnel release of both wrists Family History Other Cancer Social History Smoking Status: Never smoker alcohol intake: never current occupational status: unemployed Travel in the last 8 weeks: None household members: spouse PM Subjective & Objective Subjective Subjective:: Patient is a pleasant 68-year-old female who presents today for worsening pain. Today she rates her pain pain 5 out of 10. Patient denies any new trauma or injury. Patient has been seen in our office in the past for TMJ dysfunction. Patient did get a temporomandibular joint injection back on January along the right side that did provide more than 50% relief and lasted at least a few months. Patient states that the popping actually just came back on the right side within the last 6 weeks. Patient states that that injection did give her overall improvement and she was able to do more with decreased pain. Patient does state currently her pain is all along the left side canal. Patient is experiencing worsening pain with chewing and popping. Patient has used mouthguard's and had multiple dental procedures including bridges due to the worsening pain and chipped teeth. Patient does state that she has her jaw crooked which does play a major role in the worsening pain. Patient is interested in repeating her prior injections along the left side. She has tried and failed conservative therapy including continued at home stretching exercise as well as massage therapy that she goes to on a regular basis. Her Ezio has been reviewed and is appropriate. Review of Systems: General: No recent weight changes, no fever, no sleep disturbances Respiratory: No cough, no shortness of air, no recurring pulmonary infections Cardiovascular/peripheral vascular: No chest pain, no palpitations, no edema, no shortness of breath Gastrointestinal: No new onset incontinence, normal bowel movements reported Genitourinary: No new onset incontinence Musculoskeletal: Left jaw pain, facial pain Psychiatric: [Normal mood/affect] Neurological: [Denies weakness in extremities], [denies balance issues] Pain at rest (0-10 scale): 5 Objective Objective:: Physical Exam: General: Alert and oriented x3, no acute distress, pleasant and cooperative Lungs: Respirations even and unlabored, symmetrical chest expansion Eyes: PERRL Musculoskeletal: Flexion and extension of cervical [spine] somewhat guarded secondary to pain, [antalgic gait noted] Neurological: Speech clear, no gross sensory deficit Has patient had previous pain injection?: Yes Percent improvement in pain since last injection: 50% Conservative treatment options previously tried: Home exercise plan Length of treatment: Longer than 6 weeks Meds Home Medications and Allergies Home Medications ?Medication ?Instructions ?Recorded ?Confirmed ?Type bupropion HCl 300 mg 24 hr tablet, 300 mg PO DAILY mood 05/24/18 10/09/23 History extended release citalopram 20 mg tablet 10 mg PO DAILY Depression 05/24/18 10/09/23 History epinephrine 0.3 mg/0.3 mL 0.3 mg (0.3 mL) IM ONCE ##1 07/24/19 10/09/23 Rx injection, auto-injector amlodipine 5 mg tablet 5 mg PO DAILY 04/25/22 10/09/23 History irbesartan 300 mg tablet 300 mg PO DAILY 04/25/22 10/09/23 History omeprazole 40 mg capsule,delayed 40 mg PO DAILY 04/25/22 10/09/23 History release alendronate 70 mg tablet 70 mg PO WEEKLY 06/20/22 10/09/23 History gabapentin 300 mg capsule 300 mg PO DAILY 06/20/22 10/09/23 History fluticasone propionate 50 2 spray intranasal DAILY #16 grams 04/05/23 10/09/23 Rx mcg/actuation nasal spray,suspension (Flonase Allergy Relief) albuterol sulfate 90 mcg/actuation 2 inh inhalation Q6H PRN shortness 08/04/23 10/09/23 Rx aerosol inhaler (Ventolin HFA) of breath or wheezing 90 days #18 grams budesonide-formoterol HFA 160 2 puff inhalation BID 90 days 08/04/23 10/09/23 Rx mcg-4.5 mcg/actuation aerosol #10.2 grams inhaler (Symbicort) trazodone 50 mg tablet 50 mg PO DAILY PRN as needed 08/04/23 10/09/23 History betamethasone valerate 0.1 % 1 applic topical BID PRN otitis 08/07/23 10/09/23 Rx topical cream externa #15 grams New Prescriptions to Start Prescriptions: Allergies Allergy/AdvReac Type Severity Reaction Status Date / Time Sulfa (Sulfonamide Allergy Unknown Verified 08/29/23 10:43 Antibiotics) [SULFA (SULFONAMIDE ANTIBIOTICS)] Assessment and Plan *Assessment and plan (1) Left ear pain: Status: Acute Category: Medical Code(s): H92.02 - Otalgia, left ear (2) TMJ (dislocation of temporomandibular joint): Status: Acute Qualifiers: Encounter type: initial encounter Qualified Code(s): S03.00XA - Dislocation of jaw, unspecified side, initial encounter Category: Medical Code(s): S03.00XA - Dislocation of jaw, unspecified side, initial encounter Plan Patient is experiencing worsening pain in and around her left jaw with popping and tenderness with eating or other activities. Patient did have a prior TMJ injection on the right side that did provide 50% improvement lasting longer than 3 months. Patient had significant improvement where the pain was not as severe and did have the popping sensations completely go away up until the last 6 weeks. I did discuss with the patient risk and benefits of TMJ joint injection along the left side and she would like to proceed forward with this plan of care. Patient has tried and failed conservative therapy including continued at home stretching exercises for longer than 6 weeks as well as continued therapy weekly. Patient will be scheduled for a left TMJ joint injection. Patient has been instructed to contact the clinic with any concerns before the next appointment. Dr. Ferrer has reviewed this note and agrees with this plan of care. This note was dictated using voice recognition software and make contain errors or omissions. All injections are used with Lidocaine or Bupivacaine and Depo Medrol.
== END 2023-10-09 23:59 | disposition home or self-care (01) ==
PROVIDERS: PCP Family Medicine; Visit Provider Nurse Practitioner Family
DX: H92.02 Otalgia, left ear (principal); S03.02XA Dislocation of jaw, left side, initial encounter; Z79.899 Other long term (current) drug therapy
CPT/HCPCS: 99212; G0463

== ENCOUNTER 2023-12-26 11:12 | Emergency (ER) | payer MEDICARE, OTHER, SELFPAY ==
[2023-12-26 12:31] VITALS: BP 133/72; PULSE 77; RESP 16; TEMP 36.8; O2SAT 98; BMI 26.6
--- NOTE | 2023-12-26 12:35 | EXP.UTC ---
Discharge Plan Disposition Patient Disposition: Home, Self-Care Condition: Good Prescriptions Prescriptions: New amoxicillin 500 mg tablet 500 mg PO TID 10 Days Qty: 30 0RF benzonatate 100 mg capsule 100 mg PO TIDP PRN (Reason: Cough) Qty: 30 0RF methylprednisolone 4 mg Tablets,Dose Pack 4 mg PO DIRECTED 6 Days Qty: 21 0RF Rx Instructions: Take 1 pack as directed for 6 days No Action gabapentin 300 mg capsule 300 mg PO DAILY alendronate 70 mg tablet 70 mg PO WEEKLY betamethasone valerate 0.1 % cream 1 applic topical BID PRN (Reason: otitis externa) Qty: 15 1RF amlodipine 5 mg tablet 5 mg PO DAILY omeprazole 40 mg capsule,delayed release(DR/EC) 40 mg PO DAILY irbesartan 300 mg tablet 300 mg PO DAILY trazodone 50 mg tablet 50 mg PO DAILY PRN (Reason: as needed) Patient Comments: TAKE 1 TABLET BY MOUTH ONCE DAILY AT BEDTIME NEEDED budesonide-formoterol [Symbicort] 160-4.5 mcg/actuation HFA aerosol inhaler 2 puff inhalation BID 90 Days Qty: 10.2 2RF albuterol sulfate [Ventolin HFA] 90 mcg/actuation HFA aerosol inhaler 2 inh inhalation Q6H PRN (Reason: shortness of breath or wheezing) 90 Days Qty: 18 3RF citalopram 20 MG tablet 10 mg PO DAILY bupropion HCl 300 MG tablet extended release 24 hr 300 mg PO DAILY fluticasone propionate [Flonase Allergy Relief] 50 mcg/actuation spray,suspension 2 spray intranasal DAILY Qty: 16 0RF Rx Instructions: administer into each nostril daily epinephrine 0.3 MG/0.3 ML auto-injector 0.3 mg IM ONCE Qty: 1 0RF Referrals Follow up/Referrals: Cuba Mcneill MD [Primary Care Provider] - See instructions Activity Restrictions/Add. Instructions Additional Instructions/Restrictions: Drink plenty of fluids. Take tylenol or ibuprofen for pain or fever. Take the medications as directed. Follow up with your regular doctor. GO TO THE ER FOR ANY WORSENING SYMPTOMS Clinical Impressions Clinical Impression: Otitis media Instructions Patient Instructions: Middle Ear Infection Print Language Print Language: Armenian Discharge ED Provider: David Groves [facility] [place] HPI General Stated complaint: ear pain both ears, sore throat Mode of Arrival: Ambulatory Source of Information: Patient Time Seen by Provider: 12/26/23 12:34 Description of Symptoms (Recalled from Triage Doc. by RN): BILATERAL EAR PAIN AND THROAT PAIN HEENT Symptoms (Recalled from RN notes): Yes Resp Symptoms (Recalled from RN notes): No Skin Symptoms (Recalled from RN notes): No MS Symptoms (Recalled from RN notes): No Functional Status (Recalled from RN notes): WNL Related Data Home Medications ?Medication ?Instructions ?Recorded ?Confirmed bupropion HCl 300 mg 24 hr tablet, 300 mg PO DAILY mood 05/24/18 12/26/23 extended release citalopram 20 mg tablet 10 mg PO DAILY Depression 05/24/18 12/26/23 amlodipine 5 mg tablet 5 mg PO DAILY 04/25/22 12/26/23 irbesartan 300 mg tablet 300 mg PO DAILY 04/25/22 12/26/23 omeprazole 40 mg capsule,delayed 40 mg PO DAILY 04/25/22 12/26/23 release alendronate 70 mg tablet 70 mg PO WEEKLY 06/20/22 12/26/23 gabapentin 300 mg capsule 300 mg PO DAILY 06/20/22 12/26/23 trazodone 50 mg tablet 50 mg PO DAILY PRN as needed 08/04/23 12/26/23 Previous Rx's ?Medication ?Instructions ?Recorded epinephrine 0.3 mg/0.3 mL 0.3 mg (0.3 mL) IM ONCE ##1 07/24/19 injection, auto-injector fluticasone propionate 50 2 spray intranasal DAILY #16 grams 04/05/23 mcg/actuation nasal spray,suspension (Flonase Allergy Relief) albuterol sulfate 90 mcg/actuation 2 inh inhalation Q6H PRN shortness 08/04/23 aerosol inhaler (Ventolin HFA) of breath or wheezing 90 days #18 grams budesonide-formoterol HFA 160 2 puff inhalation BID 90 days 08/04/23 mcg-4.5 mcg/actuation aerosol #10.2 grams inhaler (Symbicort) betamethasone valerate 0.1 % 1 applic topical BID PRN otitis 08/07/23 topical cream externa #15 grams amoxicillin 500 mg tablet 500 mg PO TID 10 days #30 tabs 11/12/24 benzonatate 100 mg capsule 100 mg PO TIDP PRN Cough #30 caps 12/26/23 methylprednisolone 4 mg tablets in 4 mg PO DIRECTED 6 days #21 tabs 12/26/23 a dose pack Allergies Allergy/AdvReac Type Severity Reaction Status Date / Time Sulfa (Sulfonamide Allergy Unknown Verified 08/29/23 10:43 Antibiotics) [SULFA (SULFONAMIDE ANTIBIOTICS)] Worker's Comp Is this a Worker's Comp case?: No PFSH [facility] Disclaimer: The information contained in this section may have been updated after the patient was seen, as this information can be updated by other users. Medical History (Updated 12/26/23 @ 12:47 by David Groves APRN) Left ear pain Chronic otitis externa Mixed hearing loss of right ear SNHL (sensorineural hearing loss) TMJ (dislocation of temporomandibular joint) Asthma Diaphragm dysfunction Scoliosis History of 2019 novel coronavirus disease (COVID-19) Elevated diaphragm Dyspnea on exertion Arthritis GERD (gastroesophageal reflux disease) Depression TMJ (temporomandibular joint disorder) Tinnitus Tinnitus of right ear Surgical History Hx of colonoscopy H/O total hysterectomy History of arthroscopy of both knees History of carpal tunnel release of both wrists Family History Other Cancer Social History Smoking Status: Never smoker alcohol intake: never current occupational status: unemployed Travel in the last 8 weeks: None household members: spouse ROS Obtained: Yes All systems reviewed & no additional complaints except as documented Constitutional Constitutional: Denies chills, Reports fever(s) and Reports poor appetite Eyes Eyes: Denies eye discharge ENT Ears, Nose, Mouth, and Throat: Denies ear discharge, Reports otalgia, Denies hearing loss, Denies sinus pain and Reports sore throat Cardiovascular Cardiovascular: Denies chest pain and Denies dyspnea Respiratory Respiratory: Denies chest congestion, Reports cough and Denies dyspnea Gastrointestinal Gastrointestingal: Denies abdominal pain, diarrhea, nausea or vomiting Musculoskeletal Musculoskeletal: Denies arthralgias Integumentary/Breasts Skin/Breast: Denies rash Physical Exam General General appearance: alert and in no apparent distress Head Head exam: atraumatic and normocephalic Eye Eye exam: Present normal appearance, PERRL and EOMI ENT ENT exam: Present normal exam, normal oropharynx, mucous membranes moist and TM's normal bilaterally Neck Neck exam: Present normal inspection, full ROM and trachea midline; Absent tenderness, meningismus or lymphadenopathy Chest Chest inspection: Present normal inspection and symmetric chest wall rise; Absent tenderness Respiratory Respiratory exam: Present normal lung sounds bilaterally; Absent respiratory distress, wheezes or stridor Cardiovascular Cardiovascular exam: Present regular rate, normal rhythm and normal heart sounds Abdominal Exam Abdominal exam: Present soft and normal bowel sounds; Absent distention, tenderness, guarding, rebound or rigidity Extremities Exam Extremities exam: Present normal inspection and full ROM; Absent tenderness Neurological Exam Neurological exam: Present alert and oriented X3 Medical Decision Making Medical Records Medical records reviewed: No I reviewed the patient's medical records. Screening: Per USPSTF and CDC recommendations, given the prevalence of disease in our region, it is our hospital?s policy to screen for HIV and viral Hepatitis for all patients aged 18 and over and those with ongoing risk factors. Ezio Inquiry Pt receiving controlled substance: No Vital Signs: 12/26/23 12:31 Temperature 98.3 F Temperature Source Oral Pulse Rate [Left Radial] 77 Respiratory Rate 16 Blood Pressure [Left Arm] 133/72 Blood Pressure Mean [Left Arm] 92 02 Sat by Pulse Oximetry 98
[2023-12-26 12:51] VITALS: BP 133/72; PULSE 77; RESP 16; TEMP 36.8
== END 2023-12-26 12:53 | disposition home or self-care (01) ==
PROVIDERS: Emergency Provider Nurse Practitioner Family; PCP Family Medicine
DX: H66.93 Otitis media, unspecified, bilateral (principal)
CPT/HCPCS: 99213; G0381

== ENCOUNTER 2024-02-01 12:44 | Outpatient (CLI) | payer MEDICARE, OTHER, SELFPAY ==
[2024-02-01] MEDS: ALBUTEROL 0.083% 2.5 MG/3 ML NEB IH (13:23)
== END 2024-02-01 23:59 | disposition home or self-care (01) ==
LOC: RT 12:45
PROVIDERS: PCP Family Medicine; Visit Provider Internal Medicine Pulmonary Disease
DX: J44.9 Chronic obstructive pulmonary disease, unspecified (principal)
CPT/HCPCS: 94060; J7613

== ENCOUNTER 2024-08-06 09:16 | Outpatient (CLI) | payer MEDICARE, OTHER, SELFPAY ==
--- OUTSIDE RECORDS SUMMARY | 2024-07-23 05:45 | XMS_ITS ---
Author Organization [facility] Address [address] [place] [id number] Care Team Providers Care Gas Tender Name Role Phone Osito [place] Primary Care Provider Allergies Allergen (clinical drug ingredient) Drug/Non Drug Allergy documented on EMR Reaction Allergy Type Onset Date Status Sulfamethoxazole Unknown Drug Allergy Active Results Component Value Reference Range Notes P-Comprehensive Metabolic Pa jennifer (CMP) Reviewed date:07/25/2024 11:31:34 AM Interpretation:see duplicate order Performing Lab: Notes/Report: see duplicate order P-Lipid Panel Reviewed date:07/25/2024 11:30:02 AM Interpretation: Performing Lab: Notes/Report: P-TSH reflex to FT4 Reviewed date:07/25/2024 11:30:21 AM Interpretation: Performing Lab: Notes/Report: P-Microalbumin/Creatinine, R andom Urine Sample Reviewed date:07/25/2024 11:30:59 AM Interpretation: Performing Lab: Notes/Report: P-Vitamin D 25-Hydroxy Reviewed date:07/25/2024 11:30:38 AM Interpretation: Performing Lab: Notes/Report: REASON FOR VISIT 6 months Medications Medication SIG (Take, Route, Frequency, Duration) Notes Start Date End Date Status amLODIPine Besylate 5 MG TAKE 1 & 1/2 (O NE & ONE-HALF) TABLETS BY MOUTH ONCE DAILY Active Irbesartan 300 MG Take 1 tablet by di th once daily Active Omeprazole 40 MG TAKE 1 CAPSULE BY MO UTH ONCE DAILY 30 MINUTES TO 1 HOUR BEFORE MORNING MEAL for 90 Active traZODone HCl 50 MG TAKE 1 TABLET BY DI TH AT BEDTIME NEEDED for 30 Active EPINEPHrine 0.3 MG/0.3ML USE DIRECTED for 1 Active Symbicort 80-4.5 MCG/ACT 1 puff as neede d Inhalation every 4 hrs Active Gabapentin 300 MG 1 or 2 cap(s) orally 2 times a day 04/08/2024 Active Alendronate Sodium 70 MG 1 tab(s) orally once a week Active buPROPion HCl ER (XL) 300 MG TAKE 1 TABLET BY MOUTH IN THE MORNING ONCE DAILY for 90 days Active Citalopram Hydrobromide 20 MG 1 tablet Orally Once a day for 90 days Active Vital Signs Blood pressure systolic 118 mm Hg 07/24/19 25 Blood pressure diastolic 70 mm Hg 025 Heart Rate 88 /min 07/23/2024 Height 65 in 07/23/2024 Weight 167.6 lbs 07/23/2024 BMI 27.89 kg/m2 07/23/2024 Encounters Encounter Location Date Provider Diagnosis [facility] 1210 [facility] [address] [id number] 07/23/2024 Cuba Mcneill Essential hypertensi on I10 ; Pure hypercholesterolemia E78.00 ; Vitamin D deficiency E55.9 ; Insomnia G47.00 ; Stage 3a chronic kidney disease (CKD) N18.31 ; Depressive disorder F32.9 and BMI 27.0-27.9,adult Z68.27 Assessments Encounter Date Diagnosis (ICD Code) Assessment Notes Treatment Notes Treatment Clinical Notes Section Notes 07/23/2024 Essential hypertensi on (ICD-10 - I10) 07/23/2024 Pure hypercholesterolemia (ICD-10 - E78.00) 07/23/2024 Vitamin D deficiency (ICD-10 - E55.9) 07/23/2024 Insomnia (ICD-10 - G47.00) 07/23/2024 Stage 3a chronic kid maranda disease (CKD) (ICD-10 - N18.31) 07/23/2024 Depressive disorder (ICD-10 - F32.9) 07/23/2024 BMI 27.0-27.9,adult (ICD-10 - Z68.27) Plan Of Treatment Medication Medication Name Sig Start Date Stop Date Notes amLODIPine Besylate 5 MG TAKE 1 & 1/2 (O NE & ONE-HALF) TABLETS BY MOUTH ONCE DAILY Irbesartan 300 MG Take 1 tablet by mouth once daily Next Appt Details Follow Up: 6 Months, Reason: Provider Name:Cuba Yan ry, 01/23/2025 09:15:00 AM, [address], [address], [place], [id number], Progress Notes * OBED BLANKDOB:1955 (69 yo F)Acc No.[id number]:07/23/2024 Progress Notes Patient: OBED LIGHT Provider: Gabrielle Mcneill M.D. :1955 A ge:69 Y S ex:Female Date:07/23/2024 Address:[facility] Amanda [place], [facility] Subjective: * Chief Complaints: * 1 . 6 months. * HPI: C ardiology: 69 year old female presents with c/o Blood Pressure Elevated?Pt here for 6 mo f/u on hypertension. Pt states she is doing well and does not have any concerns today. c/o Hyperlipidemia P t is not fasting today. * ROS: D ERMATOLOGY: no [...] , Colonoscopy 02/2016, Bilateral Neck Injections - [facility] 03/2020. * Hospitalization/Major Diagno stic Procedure: [...] needed Inhalation every 4 hrs , Taking Citalopram Hydrobromide 20 MG Tablet 1 tablet Orally Once a day , Taking buPROPion HCl ER (XL) 300 MG Tablet Extended Release 24 Hour TAKE 1 TABLET BY MOUTH IN THE MORNING ONCE DAILY , Taking Alendronate Sodium 70 MG Tablet 1 tab(s) orally once a week , Taking amLODIPine Besylate 5 MG Tablet TAKE 1 & 1/2 (ONE & ONE- HALF) TABLETS BY MOUTH ONCE DAILY , Taking Gabapentin 300 MG Capsule 1 or 2 cap(s) orally 2 times a day , Taking EPINEPHrine 0.3 MG/0.3ML Solution Auto-injector USE DIRECTED , Taking traZODone HCl 50 MG Tablet TAKE 1 TABLET BY MOUTH AT BEDTIME NEEDED , Taking Omeprazole 40 MG Capsule Delayed Release TAKE 1 CAPSULE BY MOUTH ONCE DAILY 30 MINUTES TO 1 HOUR BEFORE MORNING MEAL , Taking Irbesartan 300 MG Tablet Take 1 tablet by mouth once daily , Medication List reviewed and reconciled with the patient * Allergies: S ulfamethoxazole. Objective: * Vitals: W t: 167.6, Temp: 97.8, BP: 118/70, HR: 88, Nurse: milan, Ht: 65, BMI:27.89. Assessment: * Assessment: 1. E ssential hypertension - I10 (Primary) 2 . P ure hypercholesterolemia - E78.00 3 . V itamin D deficiency - E55.9 4 . I nsomnia - G47.00 5 . S tage 3a chronic kidney disease (CKD) - N18.31 6 . Depressive disorder - F32.9 7 . B [place] 27.0-27.9,adult - Z68.27 Plan: * Treatment: 2.?Pure hypercholesterolemia?LAB: P-Comprehensive Metabolic Panel (CMP) (Collection Date & Time - 07/25/2024)?see duplicate order ?LAB: P-Lipid Panel (Collection Date & Time - 07/25/2024)* see duplicate order ?LAB: P-TSH reflex to FT4 (Collection Date & Time - 07/25/2024)* see duplicate order 3.?Vitamin D deficiency?LAB: P-Vitamin D 25-Hydroxy (Collection Date & Time - 07/25/2024)* see duplicate order * Procedure Codes: G 2211 Complex e/m visit add on, 1036F TOBACCO NON-USER, G8420 BMI<30 AND >=22 CALC & DOCU, G8950 PREHTN/HTN BP DOC INDCD F/U DOC, G8752 MOST RECENT SYSTOLIC BP < 140MM HG, G8754 MOST RECENT DIASTOLIC BP < 90MM HG, 3017F COLORECTAL CA SCREEN DOC REV * Preventive Medicine: Screening / Special Tests: C olonoscopy , diverticulosis, hemorrhoids, repeat 10 years. * Follow Up: 6 Months * Billing Information: * Visit Code: 80032 Office Visit, Est Pt., Level 4. * Procedure Codes: G2211 Complex e/m visit add on. 1036F TOBACCO NON-USER. G8420 BMI<30 AND >=22 CALC & DOCU. G8950 PREHTN/HTN BP DOC INDCD F/U DOC. G8752 MOST RECENT SYSTOLIC BP < 140MM HG. G8754 MOST RECENT DIASTOLIC BP < 90MM HG. 3017F COLORECTAL CA SCREEN DOC REV. * Electronic signature of Concha Mcneill MD on 08/06/2024 at 09:21 AM EDT Sign off status: Pending * Provider: Gabrielle Mcneill M.D. Date: 0 07/23/2024 Generated for Harsh amin/Morena/Roroitting on: 0 08/06/2024 09:21 AM EDT History and Physical Notes * HPI (History of Present Illness) Category Sub-Category Detail Notes Category Not es Cardiology Blood Pressure Elevated Pt here for 6 mo f/u on hypertension. Pt states she is doing well and does not have any concerns today Hyperlipidemia Pt is not fasting to day
--- OUTSIDE RECORDS SUMMARY | 2024-07-24 04:35 | XMS_ITS ---
[facility] Address [address] [place] [phone] Care Team Providers Care Quality Improvement Analyst Name Role Phone OsitoMadyCuba Primary Care Provider Results Component Value Reference Range Notes P-Comprehensive Metabolic Pa jennifer (CMP) Reviewed date:07/25/2024 11:29:04 AM Interpretation:Normal Performing Lab: Notes/Report: Test performed by [facility] [address] , [address], [place] [address] Cuauhtemoc Olmedo MD, Elevator Mechanic CLIA: [id number] Sodium 143 135-145 mmol/L Potassium 4.0 3.5-5.3 mmol/L Chloride 108 97-108 mmol/L CO2 26 22-32 mmol/L Glucose 95 65-99 mg/dL BUN 20 8-23 mg/dL Creatinine 0.99 0.50-1.00 mg/dL Calcium 8.6 8.6-10.4 mg/dL eGFR by Creatinine 62 >59 mL/min/1.73m2 Protein 6.4 6.0-8.3 g/dL Albumin 4.2 3.5-5.3 g/dL Alkaline Phosphatase 42 35-121 IU/L ALT (SGPT) 17 <5-47 IU/L AST (SGOT) 23 <5-40 IU/L Bilirubin, Total 0.3 <0.2-1.2 mg/dL A/G Ratio 1.9 1.1-2.5 P-Lipid Panel Reviewed date:07/25/2024 11:29:04 AM Interpretation:non-hdl 151, ldl 135 Performing Lab: Notes/Report: Test performed by [facility] [address] [facility] [address], [place] [address] Cuauhtemoc Olmedo MD, Elevator Mechanic VIJAYA: [id number] Cholesterol 198 <200 mg/dL Triglycerides 81 <150 mg/dL HDL Cholesterol 47 >39 mg/dL Cholesterol / HDL Ratio 4.21 0.00-4.44 Ratio Non-HDL Cholesterol 151 <130 mg/dL LDL Cholesterol (Calculation) 135 <130 mg/dL LDL Cholesterol Levels* Less than 100 mg/dL Optimal 100 to 129 mg/dL Near Optimal/ Above Optimal 130 to 159 mg/dL Borderline High 160 to 189 mg/dL High 190 mg/dL and above Very High * Categories as recommended by the 2004 ATPIII guidelines LDL/HDL Ratio 2.9 <3.3 Ratio LDL Cholesterol Patient History Test Date: 07/31/2023 LDL Results: 110 Units: mg/dL % Change: - Test Date: 07/24/2024 LDL Results: 135 Units: mg/dL % Change: +22% P-TSH reflex to FT4 Reviewed date:07/25/2024 11:29:05 AM Interpretation:Normal Performing Lab: Notes/Report: Test performed by [facility] [address] [place] [address] , [facility] [address], [place] [address] Cuauhtemoc Olmedo MD, Elevator Mechanic CLIA: [id number] TSH reflex to FT4 2.74 0.43-5.25 mU/L P-Microalbumin/Creatinine, R andom Urine Sample Reviewed date:07/25/2024 11:29:05 AM Interpretation:Normal Performing Lab: Notes/Report: Test performed by [facility] [address] , [facility], [place] [address] Cuauhtemoc Olmedo MD, Elevator Mechanic CLIA: [id number] Albumin/Creatinine Ratio, Urine 2 0-30 ug/m g Microalbumin, Urine, Random 0.3 Creatinine, Urine 131.9 P-Vitamin D 25-Hydroxy Reviewed date:07/25/2024 11:29:05 AM Interpretation:42.2 Performing Lab: Notes/Report: Test performed by [facility] [address] [place] [address] , [facility] [address], [place] [address] Cuauhtemoc Olmedo MD, Elevator Mechanic CLIA: [id number] Vitamin D 25-Hydroxy 42.2 30.0-100.0 ng/mL Interpretation of Vitamin D 25 OH: < 20 ng/mL - Deficiency 20 - 29 ng/mL - Insufficiency 30 - 100 ng/mL - Sufficiency > 100 ng/mL - Super-therapeutic- toxicity may occur above this level. Clinical correlation required. REASON FOR VISIT blood work Medications Medication SIG (Take, Route, Frequency, Duration) Notes Start Date End Date Status EPINEPHrine 0.3 MG/0.3ML USE DIRECTED for 1 Active traZODone HCl 50 MG TAKE 1 TABLET BY DI TH AT BEDTIME NEEDED for 30 Active Omeprazole 40 MG TAKE 1 CAPSULE BY MO UTH ONCE DAILY 30 MINUTES TO 1 HOUR BEFORE MORNING MEAL for 90 Active amLODIPine Besylate 5 MG TAKE 1 & 1/2 (O NE & ONE-HALF) TABLETS BY MOUTH ONCE DAILY Active Irbesartan 300 MG Take 1 tablet by di th once daily Active Gabapentin 300 MG 1 or 2 cap(s) orally 2 times a day 04/08/2024 Active Symbicort 80-4.5 MCG/ACT 1 puff as neede d Inhalation every 4 hrs Active Citalopram Hydrobromide 20 MG 1 tablet Orally Once a day for 90 days Active buPROPion HCl ER (XL) 300 MG TAKE 1 TABLET BY MOUTH IN THE MORNING ONCE DAILY for 90 days Active Alendronate Sodium 70 MG 1 tab(s) orally once a week Active Encounters Encounter Location Date Provider Diagnosis [facility] 1210 [facility] [address] [facility] [address] [place] [phone] 07/24/2024 Cuba Mcneill Essential hypertensi on I10 ; Pure hypercholesterolemia E78.00 and Vitamin D deficiency E55.9 Assessments Encounter Date Diagnosis (ICD Code) Assessment Notes Treatment Notes Treatment Clinical Notes Section Notes 07/24/2024 Essential hypertensi on (ICD-10 - I10) 07/24/2024 Pure hypercholesterolemia (ICD-10 - E78.00) 07/24/2024 Vitamin D deficiency (ICD-10 - E55.9) Plan Of Treatment Next Appt Details Provider Name:Cuba Yan ry, 01/23/2025 09:15:00 AM, [facility] [address] [facility], [address], [place], [phone], Progress Notes * OBED BLANKDOB:1955 (69 yo F)Acc No.[id number]:07/24/2024 Patient: Nessa ZAYRA OBED Provider: Gabrielle Mcneill M.D. :1955 A ge:69 Y S ex:Female Date:07/24/2024 Address:[facility] Amanda [facility] Subjective: * Chief Complaints: * 1 . Blood work. * Medical History: * Medications: T aking Symbicort 80-4.5 MCG/ACT [...] 1 HOUR BEFORE MORNING MEAL , Taking amLODIPine Besylate 5 MG Tablet TAKE 1 & 1/2 (ONE & ONE-HALF) TABLETS BY MOUTH ONCE DAILY , Taking Irbesartan 300 MG Tablet Take 1 tablet by mouth once daily , Medication List reviewed and reconciled with the patient Objective: * Vitals: Assessment: * Assessment: 1. E ssential hypertension - I10 (Primary) 2 . P ure hypercholesterolemia - E78.00 3 . V itamin D deficiency - E55.9 Plan: * Treatment: Value Reference Range A /G Ratio 1.9 1.1-2.5 - * A lbumin 4.2 3.5-5.3 - g/dL * A lkaline Phosphatase 42 35-121 - IU/L * A LT (SGPT) 17 <5-47 - IU/L * A ST (SGOT) 23 <5-40 - IU/L * B ilirubin, Total 0.3 <0.2-1.2 - mg/dL * B UN 20 8-23 - mg/dL * C alcium 8.6 8.6-10.4 - mg/dL * C hloride 108 97-108 - mmol/L * C O2 26 22-32 - mmol/L * C reatinine 0.99 0.50-1.00 - mg/dL * G lucose 95 65-99 - mg/dL * P otassium 4.0 3.5-5.3 - mmol/L * S odium 143 135-145 - mmol/L * P rotein 6.4 6.0-8.3 - g/dL * e GFR by Creatinine 62 >59 - mL/min/1.73m2 * Joan Moore 07/25/2024 11:2 8:55 AM EDT > See phone encounter ?LAB: P-Microalbumin/Creatinine, Random Urine Sample (Collection Date & Time - 07/24/2024 07:45 AM)?Normal* Value Reference Range A lbumin/Creatinine Ratio, Urine 2 0-30 - ug /mg * C reatinine, Urine 131.9 - mg/dL * M icroalbumin, Urine, Random 0.3 - mg/dL * Joan Moore 07/25/2024 11:2 8:55 AM EDT > See phone encounter 2.?Pure hypercholesterolemia?LAB: P-Lipid Panel (Collection Date & Time - 07/24/2024 07:45 AM)?non-hdl 151, ldl 135* Value Reference Range C holesterol / HDL Ratio 4.21 0.00-4.44 - Ratio * C holesterol 198 <200 - mg/dL * H DL Cholesterol 47 >39 - mg/dL * L DL Cholesterol (Calculation) 135 H <130 - mg/d L * L DL/HDL Ratio 2.9 <3.3 - Ratio * N on-HDL Cholesterol 151 H <130 - mg/dL * T riglycerides 81 <150 - mg/dL * Joan Moore 07/25/2024 11:2 8:55 AM EDT > See phone encounter ?LAB: P-TSH reflex to FT4 (Collection Date & Time - 07/24/2024 07:45 AM)? Normal* Value Reference Range T SH reflex to FT4 2.74 0.43-5.25 - mU/L * Joan Moore 07/25/2024 11:2 8:55 AM EDT > See phone encounter 3.?Vitamin D deficiency?LAB: P-Vitamin D 25-Hydroxy (Collection Date & Time - 07/24/2024 07:45 AM)? 42.2* Value Reference Range V itamin D 25-Hydroxy 42.2 30.0-100.0 - ng/mL * Joan Moore 07/25/2024 11:2 8:55 AM EDT > See phone encounter * Billing Information: * Visit Code: * Procedure Codes: * Electronic signature of Concha Mcneill MD on 08/06/2024 at 09:21 AM EDT Sign off status: Pending * Provider: Gabrielle Mcneill M.D. Date: 0 07/24/2024 Generated for Harsh amin/Morena/Roroitting on: 0 08/06/2024 09:21 AM EDT
--- OUTSIDE RECORDS SUMMARY | 2024-07-27 11:01 | XMS_ITS ---
Author Organization [facility] [address] [facility] 36 [facility] [address] [place] [phone] Care Team Providers Care Senior Search Marketing Analyst Name Role Phone Cuba Mcneill Primary Care Provider [phone] REASON FOR VISIT due for screening Encounters Encounter Location Date Provider Diagnosis [facility] [address] [place] [id number] 07/27/2024 Cuba Mcneill Screening for osteoporosis Z13.820 Assessments Encounter Date Diagnosis (ICD Code) Assessment Notes Treatment Notes Treatment Clinical Notes Section Notes 07/27/2024 Screening for osteoporosis (ICD-10 - Z13.820) Plan Of Treatment Pending Test Test Name Order Date Bone density 07/27/2024 Next Appt Details Provider Name:Cuba Yan ry, 01/23/2025 09:15:00 AM, [address], [address], [place], [phone], Progress Notes * NICOLE JAMESUGILLEDOB:1955 (69 yo F)Acc No.[id number]:07/27/2024 Patient: OBED LIGHT :1955 A ge:69 Y S ex:Female Address:[place], [address] Subjective: * Chief Complaints: * D ue for screening * Medical History: * Surgical History: * Hospitalization/Major Diagno stic Procedure: * Medications: Objective: * Vitals: * Physical Examination: Assessment: * Assessment: 1. S creening for osteoporosis - Z13.820 (Primary) Plan: * Treatment: * Procedure Codes: * true * Date: Generated for Harsh amin/Morena/Vivian on: 0 08/06/2024 09:21 AM EDT
--- NOTE | 2024-08-06 09:19 | XR_ITS ---
FINAL REPORT CLINICAL HISTORY: SCREENING COMPARISON: 04/24/2020 FINDINGS: Using L1-4, the bone mineral density of the spine is 1.248 g/cm2, corresponding to T-score of 1.8. Using the left hip, the bone mineral density of the femoral neck is 0.631 g/cm2, corresponding to a T-score of -2.6. Using the right hip, the bone mineral density of the femoral neck is 0.665 g/cm2, corresponding to a T-score of -2.3. NOTE: T-score: Standard deviation compared with peak bone mass of young adult mean. *Following the recommendations of the International Society of Bone densitometry, classification of hip BMD is based on the lower of two T-scores; total hip or femoral neck. IMPRESSION: Diminished bone mineral density of the left hip consistent with osteoporosis. Diminished bone mineral density of the right hip, consistent with osteopenia. Normal bone mineral density of the lumbar spine. Reviewed, Interpreted and Dictated by Kelly Ly MD Transcribed by Claudette Bennett Authenticated and . [facility]
--- OUTSIDE RECORDS SUMMARY | 2024-08-06 09:21 | XMS_ITS | Patient Health Record ---
[facility] Address [address] [place] [id number] Care Team Providers Care Irrigation Equipment Mechanic Name Role Phone Cuba Mcneill Primary Care Provider Allergies Allergen (clinical drug ingredient) Drug/Non Drug Allergy documented on EMR Reaction Allergy Type Onset Date Status Sulfamethoxazole Unknown Drug Allergy Active Results Component Value Reference Range Notes P-Basic Metabolic Panel (BMP ) Reviewed date:01/31/2024 12:11:36 PM Interpretation:Na 146, chlor 111 Performing Lab: Notes/Report: Test performed by [facility] [address] [place] [address] , [address], [place] [address] Cuauhtemoc Olmedo MD, New Home Sales Consultant CLIA: [id number] Sodium 146 135-145 mmol/L Potassium 4.3 3.5-5.3 mmol/L Chloride 111 97-108 mmol/L CO2 24 22-32 mmol/L Glucose 96 65-99 mg/dL BUN 18 8-23 mg/dL Creatinine 0.98 0.50-1.00 mg/dL Calcium 8.7 8.6-10.4 mg/dL eGFR by Creatinine 63 >59 mL/min/1.73m2 P-Parathyroid Hormone (PTH) Intact Reviewed date:01/31/2024 12:11:36 PM Interpretation:88.6 Performing Lab: Notes/Report: Test performed by [facility] [address] [place], [place] [address] [address], [address], [place] [address] Cuauhtemoc Olmedo MD, New Home Sales Consultant CLIA: [id number] Parathyroid Hormone (PTH) Intact 88.6 15.0-65. 0 pg/mL P-Vitamin D 25-Hydroxy Reviewed date:07/25/2024 11:29:05 AM Interpretation:42.2 Performing Lab: Notes/Report: Test performed by [facility] [address] , [address], [place] [address] Cuauhtemoc Olmedo MD, New Home Sales Consultant CLIA: [id number] Vitamin D 25-Hydroxy 42.2 30.0-100.0 ng/mL Interpretation of Vitamin D 25 OH: < 20 ng/mL - Deficiency 20 - 29 ng/mL - Insufficiency 30 - 100 ng/mL - Sufficiency > 100 ng/mL - Super-therapeutic- toxicity may occur above this level. Clinical correlation required. P-Microalbumin/Creatinine, R andom Urine Sample Reviewed date:07/25/2024 11:29:05 AM Interpretation:Normal Performing Lab: Notes/Report: Test performed by [facility] [address] [place] [address] , [address], [place] [address] Cuauhtemoc Olmedo MD, New Home Sales Consultant CLIA: [id number] Albumin/Creatinine Ratio, Urine 2 0-30 ug/m g Microalbumin, Urine, Random 0.3 Creatinine, Urine 131.9 P-TSH reflex to FT4 Reviewed date:07/25/2024 11:29:05 AM Interpretation:Normal Performing Lab: Notes/Report: Test performed by [facility] [address] , [address], [place] [address] Cuauhtemoc Olmedo MD, New Home Sales Consultant CLIA: [id number] TSH reflex to FT4 2.74 0.43-5.25 mU/L P-Lipid Panel Reviewed date:07/25/2024 11:29:04 AM Interpretation:non-hdl 151, ldl 135 Performing Lab: Notes/Report: Test performed by [facility] [address] [place] [address] , [address], [place] [address] Cuauhtemoc Olmedo MD, New Home Sales Consultant CLIA: [id number] Cholesterol 198 <200 mg/dL Triglycerides 81 <150 [...] Results: 135 Units: mg/dL % Change: +22% P-Comprehensive Metabolic Pa jennifer (CMP) Reviewed date:07/25/2024 11:29:04 AM Interpretation:Normal Performing Lab: Notes/Report: Test performed by [facility] [address] [place] [address] , [address], [place] [address] Cuauhtemoc Olmedo MD, New Home Sales Consultant CLIA: [id number] Sodium 143 135-145 mmol/L Potassium 4.0 3.5-5.3 [...] 0.3 <0.2-1.2 mg/dL A/G Ratio 1.9 1.1-2.5 P-Vitamin D 25-Hydroxy Reviewed date:01/31/2024 12:11:36 PM Interpretation:32 Performing Lab: Notes/Report: Test performed by [facility] [address] [place] [address] , [address], [place] [address] Cuauhtemoc Olmedo MD, New Home Sales Consultant CLIA: [id number] Vitamin D 25-Hydroxy 32.0 30.0-100.0 ng/mL Interpretation of Vitamin D 25 OH: < 20 ng/mL - Deficiency 20 - 29 ng/mL - Insufficiency 30 - 100 ng/mL - Sufficiency > 100 ng/mL - Super-therapeutic- toxicity may occur above this level. Clinical correlation required. P-Comprehensive Metabolic Pa jennifer (CMP) Reviewed date:07/25/2024 [...] date:07/25/2024 11:30:38 AM Interpretation: Performing Lab: Notes/Report: Reason For Referral No Information Medications Medication SIG (Take, Route, Frequency, Duration) Notes Start Date End Date Status Gabapentin 300 MG 1 or 2 cap(s) orally 2 times a day 04/08/2024 Active EPINEPHrine 0.3 MG/0.3ML USE DIRECTED for 1 Active Omeprazole 40 MG TAKE 1 CAPSULE BY MO UTH ONCE DAILY 30 MINUTES TO 1 HOUR BEFORE MORNING MEAL for 90 Active Alendronate Sodium 70 MG Take 1 tablet b y mouth once a week for 84 Active amLODIPine Besylate 5 MG TAKE 1 & 1/2 (O NE & ONE-HALF) TABLETS BY MOUTH ONCE DAILY Active traZODone HCl 50 MG take 1 tablet orally at bedtime, prn for 30 days Active Irbesartan 300 MG Take 1 tablet by chau th once daily Active Symbicort 80-4.5 MCG/ACT 1 puff as neede d Inhalation every 4 hrs Active Citalopram Hydrobromide 20 MG 1 tablet Orally Once a day for 90 days Active buPROPion HCl ER (XL) 300 MG TAKE 1 TABLET BY MOUTH IN THE MORNING ONCE DAILY for 90 days Active Immunizations Vaccine Route Administration Date Status Comme nts COVID 19 Pfizer Unknown 04/25/2020 Administered COVID 19 Pfizer Unknown 06/04/2020 Administered COVID 19 Pfizer Unknown 11/11/2020 Administered Fluzone High Dose (65yr and older) IM Intramuscular 10/29/2020 Administered Fluzone High Dose (65yr and older) IM Intramuscular 11/23/2021 Administered Fluzone High Dose (65yr and older) IM Intramuscular 11/08/2022 Administered Fluzone High Dose (65yr and older) IM Intramuscular 01/30/2024 Administered Fluzone PF Quad (6-35 months) Unknown 01/28/2016 Administered Fluzone PF Quad (6-35 months) Unknown 11/07/2017 Administered Fluzone PF Quad (6-35 months) Unknown 12/13/2018 Administered Fluzone PF Quad (6-35 months) Unknown 10/30/2019 Administered PNEUMOVAX 23 VACCINE IM Intramuscular 10/29/2020 Administe red Prevnar (PCV20) IM Intramuscular 12/01/2021 Administered Shingrix Unknown 10/30/2019 Administered Shingrix Unknown 01/03/2020 Administered Shingrix Unknown 01/03/2020 Administered Twinrix-Hep A and Hep B Unknown 11/07/2017 Administered Problems Problem Type SNOMED Code ICD Code Onset Dates Problem Status W/U Status Risk Notes Problem Insomnia (580803828) Insomnia (G47.00) Active confirmed Problem 66310520 Vitamin D defici ency (E55.9) Active confirmed Problem 33593925 Essential hypert ension (I10) Active confirmed Problem Osteopenia (943589354) Osteopenia (M85.80) Active confirmed Problem 552716241 Lumbago with sci atica, right side (M54.41) Active confirmed Problem 55827161 Other chronic pa in (G89.29) Active confirmed Problem 660400533 Primary osteoart hritis, unspecified site (M19.91) Active confirmed Problem 56869665 Age-related osteoporosis without current pathological fracture (M81.0) Active confirmed Problem 16966103 Depressive disor kenan (F32.9) Active confirmed Problem 096879338 Renal insufficie ncy (N28.9) Active confirmed Problem 472172827 Chronic GERD (K21.9) Active confirmed Problem 859284983 Osteoarthritis o f spine with radiculopathy, cervical region (M47.22) Active confirmed Problem Cataract (078394870) Cataracts, bilateral (H26.9) Active confirmed Problem 835808129 Pure hypercholesterolemia (E78.00) Active confirmed Problem 27865703 Atelectasis of l eft lung (J98.11) Active confirmed Problem Adjustment disorder with depressed mood (37631935) Grief reaction (F43.21) Active confirmed Problem 57088094 Primary hyperten joseph (I10) Active confirmed Problem 992344179 Stage 3a chronic kidney disease (CKD) (N18.31) Active confirmed Vital Signs Heart Rate 88 /min 07/23/2024 Blood pressure diastolic 70 mm Hg 07/23/2024 Height 65 in 07/23/2024 Blood pressure systolic 118 mm Hg 07/23/2024 Weight 167.6 lbs 07/23/2024 BMI 27.89 kg/m2 07/23/2024 Encounters Encounter Location Date Provider Diagnosis [facility] [address] [place], [place] [id number] 01/30/2024 Cuba Mcneill Essential hypertensi on I10 ; Stage 3a chronic kidney disease (CKD) N18.31 ; Vitamin D deficiency E55.9 ; Depressive disorder F32.9 and Encounter for immunization Z23 [facility] [address] [place], [place] [id number] 07/23/2024 Cuba [place] Essential hypertensi on I10 ; Pure hypercholesterolemia E78.00 ; Vitamin D deficiency E55.9 ; Insomnia G47.00 ; Stage 3a chronic kidney disease (CKD) N18.31 ; Depressive disorder F32.9 and BMI 27.0-27.9,adult Z68.27 [facility] [address] [place], [place] [id number] 07/24/2024 Cuba [place] Essential hypertensi on I10 ; Pure hypercholesterolemia E78.00 and Vitamin D deficiency E55.9 [facility] [address] [place], [place] [id number] 10/05/2023 Cuba [place] Lumbago with sciatic a, right side M54.41 [facility] [address] [place], [place] [id number] 01/31/2024 Cuba [place] [facility] [address] [place], [place] [id number] 02/09/2024 Cuba [place] [facility] [address] [place], [place] [id number] 02/12/2024 Cuba [place] Age-related osteopor osis without current pathological fracture M81.0 [facility] [address] [place], [place] [id number] 04/08/2024 Cuba [place] Lumbago with sciatic a, right side M54.41 [facility] [address] [place], [place] [id number] 07/25/2024 Cuba [place] [facility] [address] [place], [place] [id number] 07/27/2024 Cuba [place] Screening for osteop orosis Z13.820 [facility] [address] [place], [place] [id number] 11/23/2023 Cuba [place] [facility] [address] [place], [place] [id number] 04/08/2024 Cuba [place] [facility] [address] [place], [place] [id number] 07/12/2024 Cuba [place] [facility] [address] [place], [place] [id number] 07/13/2024 Cuba [place] [facility] [address] [place], [place] [id number] 07/13/2024 Cuba [place] Assessments Encounter Date Diagnosis (ICD Code) Assessment Notes Treatment Notes Treatment Clinical Notes Section Notes 10/05/2023 Lumbago with sciatic a, right side (ICD-10 - M54.41) 01/30/2024 Essential hypertensi on (ICD-10 - I10) 01/30/2024 Stage 3a chronic kid maranda disease (CKD) (ICD-10 - N18.31) 02/12/2024 Age-related osteopor osis without current pathological fracture (ICD-10 - M81.0) 04/08/2024 Lumbago with sciatic a, right side (ICD-10 - M54.41) 07/23/2024 Essential hypertensi on (ICD-10 - I10) 07/23/2024 Pure hypercholesterolemia (ICD-10 - E78.00) 07/24/2024 Essential hypertensi on (ICD-10 - I10) 07/24/2024 Pure hypercholesterolemia (ICD-10 - E78.00) 07/27/2024 Screening for osteoporosis (ICD-10 - Z13.820) 07/24/2024 Vitamin D deficiency (ICD-10 - E55.9) 07/23/2024 Vitamin D deficiency (ICD-10 - E55.9) 01/30/2024 Vitamin D deficiency (ICD-10 - E55.9) 07/23/2024 Insomnia (ICD-10 - G47.00) 01/30/2024 Depressive disorder (ICD-10 - F32.9) 07/23/2024 Stage 3a chronic kid maranda disease (CKD) (ICD-10 - N18.31) 01/30/2024 Encounter for immunization (ICD-10 - Z23) 07/23/2024 Depressive disorder (ICD-10 - F32.9) 07/23/2024 BMI 27.0-27.9,adult (ICD-10 - Z68.27) Plan Of Treatment Pending Test Test Name Order Date Bone density 07/27/2024 Next Appt Details Provider Name:Cuba Seay Yuriy ry, 01/23/2025 09:15:00 AM, [address], [address], [place], [place], [id number], Insurance Providers Payer Name Payer Address Payer Phone Subscriber Number Group Number Insured Name Patient Relationship to Insured Coverage Start Date Coverage End Date [employer] (MEDICAR E) [address] [address] [place] [address] [id number] OBED BLANK Self - patient is the insured Medical (General) History Medical History History ICD Code Hypertension Hyperlipidemia Renal Insufficiency Depression Allergic Rhinitis Arthritis Bee Sting/ Hornets - Allergy osteoporosis Chronic Back Pain, s/p Pain Management T x Spinal Stenosis Lumbar Disc Disease Colon Polyps Cervical Spine Osteoarthritis Cervical Disc Disease asthma Surgical History Surgery Date(Month/Year) Bilateral Carpel Tunnel Hysterectomy Bilateral Knee Replacement Colonoscopy 02/2016 Bilateral Neck Injections - [facility] 03/2020 Hospitalization History Reason Date(Month/Year)
--- OUTSIDE RECORDS SUMMARY | 2024-08-06 09:21 | XMS_ITS | Referral Summary ---
Author Organization [facility] Address [address] [place] [address] Care Team Providers Care Pharmacy Retail Support Specialist Name Role Phone Unavailable Primary Care Provider Unavailabl e Social History Tobacco Use Types Packs/Day Years Used Date Smoking Tobacco: Never Assessed Comments Unknown Sex and Gender Information Value Date Recorded Sex Assigned at Not on file Legal Sex Female 3:10 PM CDT Gender Identity Not on file Sexual Orientation Not on file Plan of Treatment Not on file
--- OUTSIDE RECORDS SUMMARY | 2024-08-06 09:22 | XMS_ITS | Clinical Summary ---
Author Organization [facility] Address [address] [place] [address] Care Team Providers Care Power Generation Plant Operator Name Role Phone Unavailable Primary Care Provider [...]
--- OUTSIDE RECORDS SUMMARY | 2024-08-06 09:22 | XMS_ITS | Encounter Summary ---
Author Organization [facility] Address [address] [place] [address] Care Team Providers Care Business Performance Advisor Name Role Phone Unavailable Primary Care Provider Unavailabl e Encounter Details Date Type Department Care Team (Late st Contact Info) Description 04/13/2018 Transcribed Document [facility] Family Medicine Formerly [facility] [place] [address] ProviderBren MD [address] [place] [address] Social History Tobacco Use Types Packs/Day Years Used Date Smoking Tobacco: Never Assessed Comments Unknown Sex and Gender Information Value Date Recorded Sex Assigned at Not on file Legal Sex Female 3:10 PM CDT Gender Identity Not on file Sexual Orientation Not on file documented as of this encounter Miscellaneous Notes * Cerner Conversion Note - Bren Wolff MD - 04/13/2018 2:04 PM RUBBER WORKER DATE OF ADMISSION: 04/13/2018 HISTORY OF PRESENT ILLNESS: This is a 62-year-old female with a chief complaint of chronic neck and lower back pain for several years' duration. The patient presents today for an initial consultation evaluation. She was referred to this clinic by Dr. Phillip Gasca, her primary care provider. The patient states that her neck pain is the worst pain for her. She states that it intermittently shoots into her head and into her shoulders. She states that it does cause her headaches. She states that at times she does have lower back pain. She states that occasionally she gets numbness and tingling in her lower back, but not her legs. The patient states the worst pain for her is her neck, between her shoulders and then up into her head. She states the back pain does goes across the lower back. She states that at times it goes the back of her leg to her calf. The patient describes her back pain as spasming, she describes her neck pain as aching and throbbing. She states her pain level is a 6/10. Her tolerable pain level will be a 4/10. Her average pain level is a 6/10. The patient states that sitting, bending forward, bending backwards, climbing stairs, walking, lying and twisting all make her pain worse. The patient states that she does have a history of osteoarthritis. She states that she has had total knee replacements in 2017. She states that she has had this back pain for several years. She states that she did see Dr. Becerra and he did do a lumbar epidural steroid injection x2 for her. She states that with each though she only got a few days worth of relief. Dr. Becerra did tell her that she is not a candidate for surgery for her lower back. She states that she has never sought treatment for her neck pain or her headaches. She states except for she does go to a chiropractor and they do manual adjustments. The patient states that rest and lying down tend to make her pain better. The patient states that cold, chiropractor, massage therapy, and exercise give her moderate relief. The patient is prescribed gabapentin 600 mg once a day by her primary care provider, Dr. Phillip Gasca. She states that she does not currently take any opioids. ALLERGIES: SULFA drugs. CURRENT MEDICATIONS: 1. Escitalopram. 2. Wellbutrin extended release. 3. Lisinopril and hydrochlorothiazide. 4. Etodolac. 5. Gabapentin. PAST SURGICAL HISTORY: 1. Right knee replacement. 2. Left knee replacement. 3. Complete hysterectomy. 4. Bilateral carpal tunnel surgery. PAST MEDICAL HISTORY: The patient states she has a history of high blood pressure, osteoarthritis, insomnia at times, and depression. FAMILY HISTORY: The patient states she has relatives with diabetes, high blood pressure, heart disease, cancer, arthritis. SOCIAL HISTORY: The patient states that her pain treatment goal is to be more comfortable. The patient states that she is not currently employed. She denies any tobacco products use. She denies any alcohol products use. She denies any current or past history of illegal drugs or substances. The patient states that she has completed some college. She is . She enjoys reading, TV, crossword puzzles and enjoying time with her family and grandkids. The patient states that she has her mom and her for emotional support. REVIEW OF SYSTEMS: CONSTITUTIONAL: Denies. Eyes: Denies. EARS, NOSE, AND THROAT: Admits sinus pressure and drainage at times. NEUROLOGICAL: Denies. HEMATOLOGIC/LYMPHATIC: Denies. Functional STATUS: Can attend basic daily routines without needing assistance. RESPIRATORY: Denies. GASTROINTESTINAL: Denies. MUSCULOSKELETAL: Admits joint pain and muscle aches. PSYCHIATRIC: Admits depression and sadness. CARDIOVASCULAR: Denies. GENITOURINARY: Denies. INTEGUMENTARY: Admits skin, hair, and nail changes. ENDOCRINE: Denies. PHYSICAL EXAMINATION: VITAL SIGNS: Blood pressure 119/58, pulse 86, temperature 98, respiratory rate 16, O2 saturation 96% on room air, height 5 feet 5 inches, weight 163 pounds. Visual analog score: Neck 6/10. Back 4/10. The patient is alert and oriented to person, place, and time. She does have mild to moderate pain behavior and discomfort. The rest of physical exam to include heart, lungs, abdomen, and HEENT were all unremarkable. Directed physical exam, the patient does have an antalgic gait. She was able to do heel to toes briefly, but had to stop due to bilateral knee pain. Flexion and extension of the neck and the trunk was moderately limited. There was more pain caused in extension versus the flexion. Palpation of the neck did reveal tenderness over the bilateral cervical facets with positive facet loading. Palpation of the lumbosacral area did reveal mild tenderness bilaterally over the lumbosacral facet area with positive facet loading. Neurological exam: Cranial nerves 2 through 12 are unremarkable. The patient does motor 5/5 bilaterally and symmetrically in the upper and lower extremities. Sensory was grossly nonfocal in the upper and lower extremities. Deep tendon reflexes were positive 2/4 bilaterally and symmetrically in the upper and lower extremities. Straight leg raise was negative bilaterally. The nurse's notes and PRISCILLA were reviewed and evaluated. We did do a chronic pain psychological evaluation in our clinic with SOAPP-R. The patient's score was 2 indicating mild risk to continue any opioid medication. DIAGNOSTIC DATA: The patient did have an x-ray of the cervical spine on 04/02/2018. The impression was advanced osteoarthritis of the cervical spine with disk space narrowing, anterior and posterior osteophyte formation. The patient had a lumbar spine MRI without contrast on 12/24/2014. The findings were there is exaggerated lordosis of the lumbar spine. There was an approximate 2-3 mm retrolisthesis of L2 on L3. She does have posterior disk bulges at L2-3, L3-4, L4-5, and L5-S1. There was moderate neuroforaminal narrowing noted on the left at L2-3 and at L4-5. There was severe neural foraminal narrowing on the left at L3-4 and L5-S1. There was severe neural foraminal narrowing on the right at L2-3, L3-4 and L4-5. 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 At L5-S1 there was mild central canal stenosis noted. ASSESSMENT: 1. Chronic neck pain, most likely secondary to degenerative joint disease and degenerative disk disease of the cervical spine. 2. Chronic lower back pain, most likely secondary to degenerative joint disease and degenerative disk disease of the lumbosacral spine. 3. Cervical and lumbosacral spondylosis. 4. Spinal stenosis with claudication of the lumbar spine. PLAN: 1. Schedule the patient for an MRI of the cervical spine without contrast. 2. The patient is going to followup in two weeks for bilateral cervical facet injections at C5-6 and C4-5. 3. After that procedure, she two weeks later can return for bilateral cervical facet injections at C1-2, and C2-C3. 4. The patient is going to follow up two weeks after both of those procedures for re-evaluation. 5. There was no medications prescribed at today's visit. 6. I have encouraged the patient to do home exercises to include walking, stretching, and range of motion exercises. 7. The assessment and plan for today's visit was reviewed by Dr. Espsoito. He was actively involved with examination and determining the plan of care for this patient. Thank you for allowing me to participate in the management of this patient. I will keep you informed of her progress. If you have any questions, please do not hesitate to contact our clinic. Dictated By: Fanta Berumen APRN For Yajaira Esposito M.D., [facility] Pain Certified I spent time to evaluate and examine the patient, review chart, consultation notes, medication, vital signs, lab, Imaging, discuss in details with nurse practitioner, and I agree with the plan. Yajaira Esposito M.D., [facility] Pain Certified Dict: 04/13/2018 14:04:20 Trans: 04/13/2018 17:39:44 CC1: Yajaira Esposito M.D., [facility] Pain Certified CC2: Stefania Gasca MD Electronically signed by [place], [facility] Conversion Surgical Scrub Technologist Cerner at 05/31/2022 8:04 PM CDT documented in this encounter Plan of Treatment Not on file documented as of this encounter Visit Diagnoses Not on filedocumented in this encounter
--- OUTSIDE RECORDS SUMMARY | 2024-08-06 09:22 | XMS_ITS | Clinical Summary ---
Author Organization Healthcare Address [address] [place] [address] Care Team Providers Care Merry Go Round Operator Name Role Phone Cuba Mcneill MD Primary Care Provider [phone] Social History Tobacco Use Types Packs/Day Years Used Date Smoking Tobacco: Never Assessed Comments Unknown Sex and Gender Information Value Date Recorded Sex Assigned at Not on file Legal Sex Female 8:15 PM EDT Gender Identity Not on file Sexual Orientation Not on file Plan of Treatment Health Maintenance Due Date Last Done Comments [facility]-Bone Density Scan 1955 [facility]-Depression Screening 1955 [facility]-Hepatitis C Screening 1955 [facility]-Medicare Annual Wellness (AWV) 1955 [facility]-Infant/Child/Adol SDOH Screenings 1955 [facility]- SDOH Screenings 06/14/1973 [facility]Y-Adult SDOH Screenings 06/14/1973 [facility]-DTaP,Tdap,and Td Vaccines (1 - Tdap) 06/14/1974 CT Colonography 06/14/2000 Colonoscopy 06/14/2000 FIT-DNA 06/14/2000 FIT 06/14/2000 FOBT 06/14/2000 Sigmoidoscopy 06/14/2000 [facility]Y-Colorectal Cancer Screening 06/14/2000 NJM-FYMNY-60 Vaccine ( season) 2023 11/11/2020, 06/04/2020, 04/25/2020 [facility]-Breast Cancer Screening 02/29/202402/13, 12/15/2020, 11/22/2019, Additional history exists [facility]-Influenza Vaccine (Season Ended) 2024 11/23/2021, 10/29/2020, 10/30/2019, Additional history exists [facility]Y-RSV Vaccine: 60+ Years or (1 - 1-dose 75+ series) 06/14/2030 [facility]-Hepatitis A Vaccines Aged Out 11/07/2017 No longer eligible based on patient's age to complete this topic [facility]Y-Zoster Vaccines Completed 01/03/2020, [facility]Y-Pneumococcal Vaccine: 50+ Years Completed 12/01/2021, 10/29/2020 HPV Vaccines Aged Out No longer eligi ble based on patient's age to complete this topic UKY-HIB Vaccines Aged Out No longer e ligible based on patient's age to complete this topic UKY-IPV Vaccines Aged Out No longer e ligible based on patient's age to complete this topic [facility]Y-Rotavirus Vaccines Aged Out No lo nger eligible based on patient's age to complete this topic [place] [address] [place] [address] MEDICARE GENERIC COMMERCIAL Care Teams Merry Go Round Operator Relationship Specialty Start Date End Date Cuba Mcneill MD [address] [place] [id number] [facility] - General 06/02/22
--- OUTSIDE RECORDS SUMMARY | 2024-08-06 09:22 | XMS_ITS | Clinical Summary ---
Author Organization [facility] Address [address] [place] [address] Care Team Providers Care Poultry Hatchery Man Name Role Phone Unavailable Primary Care Provider Unavailabl e Social History Tobacco Use Types Packs/Day Years Used Date Smoking Tobacco: Never Assessed Comments Unknown Sex and Gender Information Value Date Recorded Sex Assigned at Not on file Legal Sex Female 9:52 PM EDT Gender Identity Not on file Sexual Orientation Not on file Plan of Treatment Not on file
== END 2024-08-06 23:59 | disposition home or self-care (01) ==
LOC: RAD 09:17
PROVIDERS: PCP Family Medicine; Visit Provider Family Medicine
DX: M81.0 Age-related osteoporosis without current pathological fracture (principal); M85.851 Other specified disorders of bone density and structure, right thigh
CPT/HCPCS: 77080

== ENCOUNTER 2024-09-17 07:05 | Outpatient (CLI) | payer MEDICARE, OTHER, SELFPAY ==
--- OUTSIDE RECORDS SUMMARY | 2024-07-23 05:45 | XMS_ITS ---
Author Organization [facility] Address [address] [place] [phone] Care Team Providers Care Manufacturing Maintenance Manager Name Role Phone Osito Cuba Primary Care [...] 30 MINUTES TO 1 HOUR BEFORE MORNING MEAL; Duration: 90 Active traZODone HCl 50 MG TAKE 1 TABLET BY DI TH AT BEDTIME NEEDED; Duration: 30 Active EPINEPHrine 0.3 MG/0.3ML USE DIRECTED ; Duration: 1 Active Symbicort 80-4.5 MCG/ACT 1 puff [...] Once a day; Duration: 90 days Active Vital Signs Blood pressure systolic 118 mm Hg 07/24/19 25 Blood pressure diastolic 70 mm Hg 025 Heart Rate 88 /min 07/23/2024 Height 65 in 07/23/2024 Weight 167.6 lbs 07/23/2024 BMI 27.89 kg/m2 07/23/2024 Encounters Encounter Location Date Provider [facility] [address] [phone] 07/23/2024 Cuba Mcneill Essential hypertensi on I10 [address], [place], [id number], Progress Notes * OBED BLANKDOB:1955 (69 yo F)Acc No.[id number]:07/23/2024 Progress Notes Patient: OBED LIGHT Provider: Gabrielle Mcneill M.D. :1955 A ge:69 Y S ex:Female Date:07/23/2024 Address:[facility] Amanda [facility] Subjective: * Chief Complaints: * 1 . [...] , Colonoscopy 02/2016, Bilateral Neck Injections - [facility] 03/2020. * Hospitalization/Major Diagno stic Procedure: [...] Depressive disorder - F32.9 7 . B [place] 27.0-27.9,adult - Z68.27 Plan: * Treatment: 2.?Pure [...] years. * Follow Up: 6 Months * Images: Billing Information: * Visit Code: 14359 Office Visit, Est Pt., Level 4. * Procedure Codes: G2211 Complex e/m visit add on. 1036F TOBACCO NON-USER. G8420 BMI<30 AND >=22 CALC & DOCU. G8950 PREHTN/HTN BP DOC INDCD F/U DOC. G8752 MOST RECENT SYSTOLIC BP < 140MM HG. G8754 MOST RECENT DIASTOLIC BP < 90MM HG. 3017F COLORECTAL CA SCREEN DOC REV. * Electronic signature of Concha Mcneill MD on 09/17/2024 at 07:07 AM EDT Sign off status: Pending * Provider: Gabrielle Mcneill M.D. Date: 0 07/23/2024 Generated for Harsh amin/Morena/eTransmitting on: 0 09/17/2024 07:07 AM EDT History and Physical Notes * HPI (History of Present Illness) Category Sub-Category Detail Notes Category Not es Cardiology Blood Pressure Elevated Pt here for 6 mo f/u on hypertension. Pt states she is doing well and does not have any concerns today Hyperlipidemia Pt is not fasting to day
--- OUTSIDE RECORDS SUMMARY | 2024-07-24 04:35 | XMS_ITS ---
[facility] Organization [facility] Address [address] [place] [id number] Care Team Providers Care Motorboat Mechanic Inboard Name Role Phone OsitoMadyCuba Primary Care Provider Results Component Value Reference Range Notes P-Comprehensive Metabolic Pa jennifer (CMP) Reviewed date:07/25/2024 11:29:04 AM Interpretation:Normal Performing Lab: Notes/Report: Test performed by [facility] [address] , [address], [place] [address] Cuauhtemoc Olmedo MD, Construction Project Mgr CLIA: [id number] Sodium 143 135-145 mmol/L Potassium 4.0 3.5-5.3 [...] 135 Performing Lab: Notes/Report: Test performed by [facility] [address] [facility] [address], [place] [address] Cuauhtemoc Olmedo MD, Construction Project Mgr VIJAYA: [id number] Cholesterol 198 <200 mg/dL Triglycerides 81 <150 [...] Interpretation:Normal Performing Lab: Notes/Report: Test performed by [facility] [employer] [address] [place] [address] , [facility], [place] [address] Cuauhtemoc Olmedo MD, Construction Project Mgr CLIA: [id number] TSH reflex to FT4 2.74 0.43-5.25 mU/L P-Microalbumin/Creatinine, R andom Urine Sample Reviewed date:07/25/2024 11:29:05 AM Interpretation:Normal Performing Lab: Notes/Report: Test performed by [facility] [address] , [facility], [place] [address] Cuauhtemoc Olmedo MD, Construction Project Mgr CLIA: [id number] Albumin/Creatinine Ratio, Urine 2 0-30 ug/m g Microalbumin, Urine, Random 0.3 Creatinine, Urine 131.9 P-Vitamin D 25-Hydroxy Reviewed date:07/25/2024 11:29:05 AM Interpretation:42.2 Performing Lab: Notes/Report: Test performed by [facility] [employer] [address] [place] [address] , [facility] [address], [place] [address] Cuauhtemoc Olmedo MD, Construction Project Mgr CLIA: [id number] Vitamin D 25-Hydroxy 42.2 30.0-100.0 ng/mL Interpretation [...] Date Status EPINEPHrine 0.3 MG/0.3ML USE DIRECTED ; Duration: 1 Active traZODone HCl 50 MG TAKE 1 TABLET BY DI AT BEDTIME NEEDED; Duration: 30 Active Omeprazole 40 MG TAKE 1 CAPSULE BY MO UTH ONCE DAILY 30 MINUTES TO 1 HOUR BEFORE MORNING MEAL; Duration: 90 Active amLODIPine Besylate 5 MG TAKE [...] MORNING ONCE DAILY; Duration: 90 days Active Alendronate Sodium 70 MG 1 tab(s) orally once a week Active Encounters Encounter Location Date Provider Diagnosis [facility] [address] [facility] 36 [facility] [address] [place] [id number] 07/24/2024 Cuba Mcneill Essential hypertensi on I10 [...] Name:Cuba Yan ry, 01/23/2025 09:15:00 AM, [address] [facility] 36 [facility], [address], [place], [place], [phone], Progress Notes * OBED BLANKDOB:1955 (69 yo F)Acc No.[id number]:07/24/2024 Patient: OBED LIGHT Provider: Gabrielle Mcneill M.D. :1955 A ge:69 Y S ex:Female Date:07/24/2024 Address[facility] Subjective: * Chief Complaints: * 1 . [...] D 25-Hydroxy 42.2 30.0-100.0 - ng/mL * OscarJoan 07/25/2024 11:2 8:55 AM EDT > See phone encounter * Images: Billing Information: * Visit Code: * Procedure Codes: * Electronic signature of Concha Mcneill MD on 09/17/2024 at 07:07 AM EDT Sign off status: Pending * Provider: Gabrielle Mcneill M.D. Date: 0 07/24/2024 Generated for Harsh amin/Morena/Vivian on: 0 09/17/2024 07:07 AM EDT
--- OUTSIDE RECORDS SUMMARY | 2024-07-27 11:01 | XMS_ITS ---
Author Organization [facility] Address 1210 [facility] 36 [facility] [address] [place] [phone] Care Team Providers Care Cardiovascular Physician Assistant Name Role Phone Cuba Mcneill Primary Care Provider Results Component Value Reference Range Notes Bone density Reviewed date:08/13/2024 10:19:38 AM Interpretation:osteoporosis and osteopenia Performing Lab: Notes/Report: osteoporosis and osteopenia REASON FOR VISIT due for screening Encounters Encounter Location Date Provider Diagnosis [facility] 36 [facility] [address] [place] [id number] 07/27/2024 Cuba Mcneill Screening for osteoporosis Z13.820 Assessments Encounter Date Diagnosis (ICD Code) Assessment Notes Treatment Notes Treatment Clinical Notes Section Notes 07/27/2024 Screening for osteoporosis (ICD-10 - Z13.820) Plan Of Treatment Next Appt Details Provider Name:Cuba Yan ry, 01/23/2025 09:15:00 AM, 12[address] [facility] 36 [facility], [address], [place], [phone], Progress Notes * OBED BLANKDOB:1955 (69 yo F)Acc No.[id number]:07/27/2024 Patient: OBED LIGHT :1955 A ge:69 Y S ex:Female Address:[place], [address] Subjective: * Chief Complaints: * D ue for screening * Medical History: * Surgical History: * Hospitalization/Major Diagno stic Procedure: * Medications: Objective: * Vitals: * Physical Examination: Assessment: * Assessment: 1. S creening for osteoporosis - Z13.820 (Primary) Plan: * Treatment: * Procedure Codes: * true * Date: Generated for Harsh amin/Morena/Vivian on: 0 09/17/2024 07:07 AM EDT
--- OUTSIDE RECORDS SUMMARY | 2024-09-17 07:07 | XMS_ITS | Encounter Summary ---
[facility] Address [address] [place] [id number] Care Team Providers Care Trust Administrator Name Role Phone Cuba Mcneill MD Primary Care Provider [phone] Encounter Details Date Type Department Care Team (Late st Contact Info) Description 06/24/2024 Results Follow-Up [facility] [address] [place] [address] Rocehlle Brunson, [place] CAPTAIN [address] [facility] [address] [place] [address] Social History Tobacco Use Types Packs/Day Years Used Date Smoking Tobacco: Never Smokeless Tobacco: Never Alcohol Use Standard Drinks/Week Comments No 0 (1 standard drink = 0.6 oz pur e alcohol) PHQ-2 Answer Date Recorded Retired PHQ-9: Brief Depression Severity Measure Score 0 07/05/2022 PHQ-2 Answer Date Recorded Retired PHQ-9: Brief Depression Severity Measure Score 0 08/09/2023 Comments No Sex and Gender Information Value Date Recorded Sex Assigned at Not on file Legal Sex Female 11:04 AM EDT Gender Identity Not on file Sexual Orientation Not on file documented as of this encounter Plan of Treatment Not on file documented as of this encounter Visit Diagnoses Not on filedocumented in this encounter Care Teams Trust Administrator Relationship Specialty Start Date End Date Cuba Mcneill MD [address] [place] [id number] PCP - General Fuselage Framer 03/02/20 documented as of this encounter
--- OUTSIDE RECORDS SUMMARY | 2024-09-17 07:07 | XMS_ITS | Clinical Summary ---
Author Organization [facility] Address [address] [place] [address] Care Team Providers Care Airplane Cabin Attendant Name Role Phone Cuba Mcneill MD Primary Care Provider [phone] Allergies Active Allergy Reactions Criticality Noted Date Comments Sulfa Antibiotics Shortness Of Breath High 7 Diarrhea, hives Sulfate Diarrhea,Hives,Short ness Of Breath High Medications buPROPion XL (WELLBUTRIN XL) 300 MG 24 hr tablet Take 1 tablet by mouth every night at bedtime. 5 Active citalopram (CeleXA) 20 MG tablet Take 1 tablet by mouth Daily. 7 Active gabapentin (NEURONTIN) 600 MG tablet Take 1 tablet by mouth Daily. 9 Active omeprazole (priLOSEC) 40 MG capsule Take 1 capsule by mouth Daily. Active EPINEPHrine (EPIPEN) 0.3 MG/0.3ML solution auto-injector injection 1 Active amLODIPine (NORVASC) 5 MG tablet Take 1 tablet by mouth Daily. 2 Active alendronate (FOSAMAX) 70 MG tablet 3 Active irbesartan (AVAPRO) 300 MG tablet 2 Active albuterol sulfate HFA 108 (90 Base) MCG/ACT inhaler 4 Active betamethasone valerate (VALISONE) 0.1 % cream 4 Active Breyna 80-4.5 MCG/ACT inhaler INHALE 2 PUFFS BY MOUTH TWICE DAILY FOR SHORTNESS OF BREATH OR WHEEZING 4 Active traZODone (DESYREL) 50 MG tablet Take 1 tablet by mouth At Night As Needed. 4 Active estradiol (ESTRACE VAGINAL) 0.1 MG/GM vaginal cream Insert 0.5 g per vagina daily x 2 weeks and then twice weekly 42.5 g 2 5 Active Active Problems Problem Noted Date Diagnosed Date TMJ dysfunction 02/26/2019 Bruxism 02/26/2019 Scoliosis of lumbar spine 02/26/2019 Spondylosis of lumbar region without myelopathy or radiculopathy 02/22/2019 DDD (degenerative disc disease), lumbar 02/22/19 Lumbar stenosis with neurogenic claudication 11/2019 Cervical spondylosis without myelopathy 02/22/19 DDD (degenerative disc disease), cervical 2019 Cervical spinal stenosis 02/22/2019 Osteoporosis, postmenopausal 01/28/2019 Irritable bowel syndrome 01/28/2019 UTI (urinary tract infection) 11/25/2016 Leukocytosis, mild, likely reactive 11/24/2016 Acute blood loss anemia, mild, asymptomatic 11/13 OA (osteoarthritis) of knee 11/23/2016 History of bilateral knee replacement 11/23/2016 Anxiety and depression 11/23/2016 HTN (hypertension) 11/23/2016 Primary osteoarthritis of both knees 11/03/2016 Overview (11/03/2016): Added automatically from request for surgery [id number] Knee joint pain 10/30/2013 Encounters Date Type Department Care Team Description 06/24/2024 Results Follow-Up [facility] [address] [address] Rochelle Brunson APRN 06/20/2024 3:00 PM EDT Office Visit [facility] [address] [phone] Rochelle Brunson, KRISTINE Women's annual routine gynecological examination (Primary Dx); Atrophic vaginitis; Acute vaginitis 06/20/2024 Travel 06/17/2024 10:57 AM EDT - 06/17/2024 11:59 PM EDT Hospital Encounter [facility] [address] [place] [address] Cuba Mcneill MD Visit for screening mammogram Discharge Disposition: Home or Self Care 06/17/2024 Travel from Last 3 Months Family History Medical History Relation Name Comments Alcohol abuse Father Father Diabetes Father Father Breast cancer Maternal Aunt 1 Maternal Aunt 60'S ? Cancer Maternal Aunt 1 Maternal Aunt Cancer Maternal Aunt 2 Jocy Hethcox Cancer Maternal Grandmother Basia Colon cancer Maternal Grandmother Basia Cancer Maternal Uncle Uncle Mckay and Marlet Cancer Mother mom Diabetes Mother mom Ovarian cancer Neg Hx Relation Name Status Comments Father Father Maternal Aunt 1 Maternal Aunt Maternal Aunt 2 Jocy Hethcox Alive Maternal Grandmother Basia Alive Maternal Uncle Uncle Mckay and Marlet Alive Mother mom Social History Tobacco Use Types Packs/Day Years Used Date Smoking Tobacco: Never Smokeless Tobacco: Never Tobacco Cessation:Counseling Given: Not Answered Alcohol Use Standard Drinks/Week Comments No 0 [...] on file Sexual Orientation Not on file Last Filed Vital Signs Vital Sign Reading Time Taken Comments Blood Pressure 112/82 06/20/2024 3:00 PM EDT Pulse 70 12/22/2021 11:34 AM EST Temperature 36.7 C (98 F) 12/22/2021 11:34 AM EST Respiratory Rate 14 12/22/2021 11:34 AM EST Oxygen Saturation 99% 12/22/2021 11:34 AM EST Inhaled Oxygen Concentration - - Weight 77 kg (169 lb 12.8 oz) 06/20/2024 3:00 PM EDT Height 165.1 cm (5' 5 ) 06/20/2024 3:00 PM EDT Body Mass Index 28.26 06/20/2024 3:00 PM EDT Plan of Treatment Health Maintenance Due Date Last Done Comments COLOGUARD 06/14/2000 COLON CANCER SCREENING 5 YEA R SIGMOIDOSCOPY 06/14/2000 COLONOSCOPY 06/14/2000 COLORECTAL CANCER SCREENING 06/14/2000 CT COLONOGRAPHY 06/14/2000 FECAL OCCULT BLOOD TEST 06/14/2000 FIT Testing (1 year) 06/14/2000 ANNUAL WELLNESS VISIT 11/03/2016 HEPATITIS C SCREENING 11/03/2016 DXA SCAN 10/16/2020 10/16/2018 COVID-19 Vaccine (2023-2 5 season) 2023 11/11/2020, 06/04/2020, 04/25/2020 INFLUENZA VACCINE 11/13/2024 11/23/2021, , 10/30/2019, Additional history exists MAMMOGRAM 06/17/2026 06/17/2024, 05/2023, 02/28/2022, Additional history exists TDAP/TD VACCINES (2 - Td or Tdap) 07/16/2033 024 ZOSTER VACCINE Completed 01/03/2020, 10/30/2019 Pneumococcal Vaccine 50+ Completed 12/01/2021, 10/14 Medical Devices Implanted Type Area Fat Pressroom Worker Device Identifier Shelf Expiration Date Model / Serial / Lot Cmt Bone Endurance Smartset 40gm - [id number] Implanted:Qty : 2 on 11/23/2016 by Ashwin Nava MD at [facility] Implant Left: Knee DEPUY 04/12/2018 [id number] / / [id number] Stem Tib Persona Cmt 5d Eyal Lt - [id number] Implanted:Qty : 1 on 11/23/2016 by Ashwin Nava MD at [facility] Implant Left: Knee [employer] 07/13/2026 [id number] / / [id number] Comp Fem Persona Ps Cocr Cmt Nrw Sz6 Lt - [id number] Implanted:Qty : 1 on 11/23/2016 by Ashwin Nava MD at [facility] Implant Left: Knee [employer] 12/13/2025 [id number] / / [id number] Ext Stem Persona Tpr [id number] - [id number] Implanted:Qty : 1 on 11/23/2016 by Ashwin Nava MD at [facility] Implant Left: [facility]nee [facility] 11/12/2026 [id number] / / [id number] Description:NOT INCLUDED IN CAP CHARGE Pat Persona Allpoly Cmt 8x29mm - [id number] Implanted:Qty : 1 on 11/23/2016 by Ashwin Nava MD at [facility] Implant Left: Knee [facility] 08/12/2024 [id number] / / [id number] Art/Srf Kn Persona/Ve Ps Mc Ef Sz12 12mm Lt - [id number] Implanted:Qty : 1 on 11/23/2016 by Ashwin Nava MD at [facility] Implant Left: Knee [facility] 07/13/2021 [id number] / / [id number] Totl Kn Fm Xavier Ve Cps Rogelio - [id number] Implanted:Qty : 1 on 11/23/2016 by Ashwin Nava MD at [facility] Implant Left: Knee [facility] CAPKNEETOTALZI M6 / / Baseplt Tib Triath Ts No3 - [id number] Implanted:Qty : 1 on 02/01/2017 by Chuy Cervantes MD at [facility] Implant Right: Knee [employer] 12/22/2021 [id number] / / [id number] Comp Fem Triath Cr No4 Rt - [id number] Implanted:Qty : 1 on 02/01/2017 by Chuy Cervantes MD at [facility] Implant Right: Knee [employer] 11/03/2021 [id number] / / [id number] [id number] Tib Triath C/S X3 Sz3 13mm - [id number] Implanted:Qty : 1 on 02/01/2017 by Chuy Cervantes MD at [facility] Implant Right: Knee [employer] 09/22/2021 [id number] / / [id number] Pat Triath Asym X3 9x29mm - [id number] Implanted:Qty : 1 on 02/01/2017 by Chuy Cervantes MD at [facility] Implant Right: Knee [employer] 08/03/2021 [id number] / / [id number] Totl Kn Hi Demand Cecil - [id number] Implanted:Qty : 1 on 02/01/2017 by Chuy Cervantes MD at [facility] Implant Right: Knee [employer] CAPKNTOTLHIDEM STRY2 / / Cmt Bone Simplex/P Full Dose 10/Pk - [id number] Implanted:Qty : 2 on 02/01/2017 by Chuy Cervantes MD at [facility] Implant [employer] 07/14/2019 [id number] / / [id number] Explanted Type Area Fat Pressroom Worker Device Identifier Shelf Expiration Date Model / Serial / Lot Scrw Hex Persona Fml 2.5x25mm - [id number] Implanted:Qty : 1 Explanted:Qty : 1 on 11/23/2016 at [facility] Implant Left: Knee [employer] 09/12/2026 [id number] / / [id number] Procedures Procedure Name Priority Date/Time Associated Diagnosis Comments LIQUID-BASED PAP SMEAR WITH HPV GENOTYPING IF ASCUS, [facility] (NIA,COR,MAD) Routine 06/20/2024 3:44 PM EDT Women's annual routine gynecological examination MAMMO SCREENING DIGITAL TOMOSYNTHESIS BILATERAL W CAD Routine 06/17/2024 11:26 AM EDT Visit for screening mammogram from Last 3 Months Results * LIQUID-BASED PAP SMEAR WITH HPV GENOTYPING IF ASCUS (NAI,COR,MAD) (06/20/2024 3:44 PM EDT) Pathologist [facility] [place] Reference Lab Report [facility] [address] [place] [address] or [phone] Erich Contreras M.D., Sewing Machine Repairer PATIENT NAME [facility]AT[facility] NO[facility]ANC[facility] FOWLER. [id number] AGE SEX SSN CLIENT REF # [id number] 69 1955 F [id number] [facility] [address] REQUESTING Sonya BORJA M.D. [address]Y [address] [id number] [address] DATE COLLECTED DATE RECEIVED DATE REPORTED 06/20/2024 06/20/2024 06/21/2024 ThinPrep Pap with Hologic Genius Imaging DIAGNOSIS: Negative for intraepithelial lesion or malignancy Multiple factors can influence accuracy of Pap tests; therefore, screening at regular intervals is necessary for early cancer detection. COMMENT: Benign cellular changes associated with atrophy are present. SPECIMEN ADEQUACY: SATISFACTORY FOR EVALUATION SOURCE OF SPECIMEN: VAGINAL SLIDES: 1 CLINICAL HISTORY: Women's annual routine gynecological examination NUTRITION INTERN: VICTOR M MANE (ASCP) CPT CODES: 43032 06/21/2024 10:12 AM EDT [facility] ThinPrep Vial Cervix uteri structure / Unknown Collection / Unknown 06/20/2024 3:44 PM EDT 06/20/2024 3:44 PM EDT Rochelle Brunson TRUCK DRIVER FLATBED PATHOLOGY/CYTOLOGY ORDERA BLES Final Result [facility]
[address] [place] [address], * Mammo Screening Digital Tomosynthesis Bilateral With CAD (06/17/2024 11:26 AM EDT) Anatomical Region Laterality Modality Breast N/A Mammography 06/18/2024 6:04 PM EDT Impressions 06/18/2024 6:06 PM EDT No findings suspicious for malignancy. ACR BI-RADS CATEGORY: 1, NEGATIVE RECOMMENDATION: Yearly mammogram, yearly clinical breast exam, and encourage self breast awareness. CAD was used. The standard false negative rate of mammography is between 10% and 25%. Complex patterns or increased breast density will markedly elevate the false negative rate of mammography. A letter, in lay terminology, with the results of this exam will be mailed to the patient. If there is a palpable area of concern, biopsy should be considered regardless of imaging findings. 06/18/2024 6:06 PM by Brenda Burris MD on Narrative 06/18/2024 6:06 PM EDT ROUTINE DIGITAL SCREENING MAMMOGRAM WITH TOMOSYNTHESIS HISTORY: Routine screening. IMAGE COMPARISON: Extending to 2020. TECHNIQUE: Low dose full field digital breast tomosynthesis imaging was performed with 2D and 3D acquisitions consisting of bilateral CC and MLO views. FINDINGS: There are scattered fibroglandular densities. The fibroglandular pattern appears stable. There is no mass, worrisome microcalcifications, or architectural distortion to suggest development of malignancy. Cuba Mcneill MD IMG MAMMOGRAPHY ORDERABLES F inal Result from Last 3 Months Insurance [facility] MEDICARE ADVANTAGE PPO Advance Directives * Full Code (Latest Code Status on File) Date Activated Date Inactivated Comments 02/01/2017 2:03 PM 02/03/2017 3:59 PM * Full Code Date Activated Date Inactivated Comments 11/23/2016 5:26 PM 11/25/2016 4:23 PM Care Teams Airplane Cabin Attendant Relationship Specialty Start Date End Date Cuba Mcneill MD [address] [facility] [address] [place] [id number] PCP - General International Sales Manager 03/02/20
--- OUTSIDE RECORDS SUMMARY | 2024-09-17 07:07 | XMS_ITS | Clinical Summary ---
Author Organization [employer] ([place], [place], [place], [place]) Address [address] [place] [address] Care Team Providers Care Health And Wellness Coach Name Role Phone Unavailable Primary Care Provider [...]
--- OUTSIDE RECORDS SUMMARY | 2024-09-17 07:07 | XMS_ITS | Referral Summary ---
Author Organization [employer] ([place], [place], [place], [place]) Address [address] [place] [address] Care Team Providers Care Stretching Press Operator Name Role Phone Unavailable Primary Care [...]
--- OUTSIDE RECORDS SUMMARY | 2024-09-17 07:07 | XMS_ITS | Patient Health Record ---
Author Organization [facility] Address [address] BETI Pat[place] [id number] Care Team Providers Care Licensed Club Manager Name Role Phone Cuba Mcneill Primary Care [...] date:07/25/2024 11:30:38 AM Interpretation: Performing Lab: Notes/Report: P-Basic Metabolic Panel (BMP ) Reviewed date:01/31/2024 12:11:36 PM Interpretation:Na 146, chlor 111 Performing Lab: Notes/Report: Test performed by [facility] , [address], [place] [address] Cuauhtemoc Olmedo MD, Architect Internship CLIA: [id number] Sodium 146 135-145 mmol/L Potassium 4.3 3.5-5.3 mmol/L Chloride 111 97-108 mmol/L CO2 24 22-32 mmol/L Glucose 96 65-99 mg/dL BUN 18 8-23 mg/dL Creatinine 0.98 0.50-1.00 mg/dL Calcium 8.7 8.6-10.4 mg/dL eGFR by Creatinine 63 >59 mL/min/1.73m2 P-Parathyroid Hormone (PTH) Intact Reviewed date:01/31/2024 12:11:36 PM Interpretation:88.6 Performing Lab: Notes/Report: Test performed by [facility] [address] [place] [address] , [place] [address] Cuauhtemoc Olmedo MD, Architect Internship CLIA: [id number] Parathyroid Hormone (PTH) Intact 88.6 15.0-65. 0 pg/mL P-Vitamin D 25-Hydroxy Reviewed date:01/31/2024 12:11:36 PM Interpretation:32 Performing Lab: Notes/Report: Test performed by [facility] [address] [place] [address] , [place] [address] Cuauhtemoc Olmedo MD, Architect Internship CLIA: [id number] Vitamin D 25-Hydroxy 32.0 30.0-100.0 ng/mL Interpretation of Vitamin D 25 OH: < 20 ng/mL - Deficiency 20 - 29 ng/mL - Insufficiency 30 - 100 ng/mL - Sufficiency > 100 ng/mL - Super-therapeutic- toxicity may occur above this level. Clinical correlation required. P-Comprehensive Metabolic Pa jennifer (CMP) Reviewed date:07/25/2024 11:29:04 AM Interpretation:Normal Performing Lab: Notes/Report: Test performed by [facility] [address] [place] [address] , [address], [place] [address] Cuauhtemoc Olmedo MD, Architect Internship CLIA: [id number] Sodium 143 135-145 mmol/L Potassium 4.0 3.5-5.3 [...] 135 Performing Lab: Notes/Report: Test performed by [facility], [address] , [place] [address] Cuauhtemoc Olmedo MD, Architect Internship CLIA: [id number] Cholesterol 198 <200 mg/dL Triglycerides 81 <150 [...] Interpretation:Normal Performing Lab: Notes/Report: Test performed by [facility] [address] [place] [address] , [address], [place] [address] Cuauhtemoc Olmedo MD, Architect Internship CLIA: [id number] TSH reflex to FT4 2.74 0.43-5.25 mU/L P-Microalbumin/Creatinine, R andom Urine Sample Reviewed date:07/25/2024 11:29:05 AM Interpretation:Normal Performing Lab: Notes/Report: Test performed by [facility] [address] [place] [address] , [address], [place] [address] Cuauhtemoc Olmedo MD, Architect Internship CLIA: [id number] Albumin/Creatinine Ratio, Urine 2 0-30 ug/m g Microalbumin, Urine, Random 0.3 Creatinine, Urine 131.9 P-Vitamin D 25-Hydroxy Reviewed date:07/25/2024 11:29:05 AM Interpretation:42.2 Performing Lab: Notes/Report: Test performed by [facility] [address] [place] [address] , [address], [place] [address] Cuauhtemoc Olmedo MD, Architect Internship CLIA: [id number] Vitamin D 25-Hydroxy 42.2 30.0-100.0 ng/mL Interpretation of Vitamin D 25 OH: < 20 ng/mL - Deficiency 20 - 29 ng/mL - Insufficiency 30 - 100 ng/mL - Sufficiency > 100 ng/mL - Super-therapeutic- toxicity may occur above this level. Clinical correlation required. Bone density Reviewed date:08/13/2024 10:19:38 AM Interpretation:osteoporosis and osteopenia Performing Lab: Notes/Report: osteoporosis and osteopenia Reason For Referral No Information Medications Medication SIG (Take, Route, Frequency, Duration) Notes Start Date End Date Status amLODIPine Besylate 5 MG 1 and a 1/2 (on e and a half) Orally Once a day; Duration: 90 days Active Gabapentin 300 MG 1 or 2 cap(s) orally 2 times a day 04/08/2024 Active buPROPion HCl ER (XL) 300 MG 1 tablet in the morning Orally Once a day; Duration: 90 days Active EPINEPHrine 0.3 MG/0.3ML USE DIRECTED ; Duration: 1 Active Omeprazole 40 MG TAKE 1 CAPSULE BY [facility] ONCE DAILY 30 MINUTES TO 1 HOUR BEFORE MORNING MEAL; Duration: 90 Active Alendronate Sodium 70 MG Take 1 tablet b y mouth once a week; Duration: 84 Active traZODone HCl 50 MG take 1 tablet orally at bedtime, prn; Duration: 30 days Active Irbesartan 300 MG Take 1 tablet by chau once daily Active Symbicort 80-4.5 MCG/ACT 1 puff as neede d Inhalation every 4 hrs Active Citalopram Hydrobromide 20 MG 1 tablet Orally Once a day; Duration: 90 days Active Immunizations Vaccine Route Administration Date Status Comme nts Twinrix-Hep A and Hep B Unknown 11/07/2017 Administered Shingrix Unknown 10/30/2019 Administered Shingrix Unknown 01/03/2020 Administered Shingrix Unknown 01/03/2020 Administered Prevnar (PCV20) IM Intramuscular 12/01/2021 Administered PNEUMOVAX 23 VACCINE IM Intramuscular 10/29/2020 Administe red Fluzone PF Quad (6-35 months) Unknown 01/28/2016 Administered Fluzone PF Quad (6-35 months) Unknown 11/07/2017 Administered Fluzone PF Quad (6-35 months) Unknown 12/13/2018 Administered Fluzone PF Quad (6-35 months) Unknown 10/30/2019 Administered Fluzone High Dose (65yr and older) IM Intramuscular 10/29/2020 Administered Fluzone High Dose (65yr and older) IM Intramuscular 11/23/2021 Administered Fluzone High Dose (65yr and older) IM Intramuscular 11/08/2022 Administered Fluzone High Dose (65yr and older) IM Intramuscular 01/30/2024 Administered COVID 19 Pfizer Unknown 04/25/2020 Administered COVID 19 Pfizer Unknown 06/04/2020 Administered COVID 19 Pfizer Unknown 11/11/2020 Administered Problems Problem Type SNOMED Code ICD Code Onset Dates Problem Status W/U Status Risk Notes Problem Insomnia (146814503) Insomnia (G47.00) Active c onfirmed Problem Vitamin D deficiency (98099052) Vitamin D deficiency (E55.9) Active confirmed Problem Essential hypertension (36080629) Essential hypertension (I10) Active confirmed Problem Osteopenia (367141430) Osteopenia (M85.80) Active confirmed Problem Sciatica (17389237) Lumbago with sciatica, right side (M54.41) Active confirmed Problem Chronic pain (34061805) Other chronic pain (G89.29) Active confirmed Problem Primary generalised osteoarthritis (015256243) Primary osteoarthritis, unspecified site (M19.91) Active confirmed Problem Age-related osteoporosis (587331073) Age-related osteoporosis without current pathological fracture (M81.0) Active confirmed Problem Depressive disorder (75259594) Depressive disorder (F32.9) Active confirmed Problem Renal insufficiency (187152797) Renal insufficiency (N28.9) Active confirmed Problem Gastroesophageal reflux disease (disorder) (716067578) Chronic GERD (K21.9) Active confirmed Problem Cervical spondylosis without myelopathy (990762483) Osteoarthritis of spine with radiculopathy, cervical region (M47.22) Active confirmed Problem Cataract (112690757) Cataracts, bilateral (H26.9) Active confirmed Problem Pure hypercholesterolemia (607923008) Pure hypercholesterolemia (E78.00) Active confirmed Problem Atelectasis (26533389) Atelectasis of left lung (J98.11) Active confirmed Problem Adjustment disorder with depressed mood (85348704) Grief reaction (F43.21) Active confirmed Problem Primary hypertension (81107421) Primary hypertension (I10) Active confirmed Problem Chronic kidney disease stage 3A (disorder) (154784379) Stage 3a chronic kidney disease (CKD) (N18.31) Active confirmed Vital Signs Heart Rate 88 /min 07/23/2024 Blood pressure diastolic 70 mm Hg 07/23/2024 Height 65 in 07/23/2024 Blood pressure systolic 118 mm Hg 07/23/2024 Weight 167.6 lbs 07/23/2024 BMI 27.89 kg/m2 07/23/2024 Encounters Encounter Location Date Provider Diagnosis [facility] [address] [facility] [address] [place], [place] [id number] 01/30/2024 Cuba Peoa Essential hypertensi on I10 ; Stage 3a chronic kidney disease (CKD) N18.31 ; Vitamin D deficiency E55.9 ; Depressive disorder F32.9 and Encounter for immunization Z23 [facility] [address] [facility] [address] [place], [place] [id number] 07/23/2024 Cuba Peoa Essential hypertensi on I10 ; Pure hypercholesterolemia E78.00 ; Vitamin D deficiency E55.9 ; Insomnia G47.00 ; Stage 3a chronic kidney disease (CKD) N18.31 ; Depressive disorder F32.9 and BMI 27.0-27.9,adult Z68.27 [facility] [address] [facility] [address] [place] [id number] 07/24/2024 Cuba Peoa Essential hypertensi on I10 ; Pure hypercholesterolemia E78.00 and Vitamin D deficiency E55.9 [facility] [address] [facility] [address] [place] [id number] 10/05/2023 Cuba Peoa Lumbago with sciatic a, right side M54.41 [facility] [address] [facility] [address] [place] [id number] 01/31/2024 Cuba Peoa [facility] [address] [facility] [address] [place] [id number] 02/09/2024 Cuba Peoa [facility] [address] [facility] [address] [place] [id number] 02/12/2024 Cuba Peoa Age-related osteopor osis without current pathological fracture M81.0 [facility] [address] [facility] [address] [place] [id number] 04/08/2024 Cuba Peoa Lumbago with sciatic a, right side M54.41 [facility] [address] [facility] [address] [place] [id number] 07/25/2024 Cuba Peoa [facility] [address] [place] [id number] 07/27/2024 Cuba Peoa Screening for osteop orosis Z13.820 [facility] [address] [place] [id number] 11/23/2023 Cuba Peoa [facility] [address] [place] [id number] 04/08/2024 Cuba Peoa [facility] [address] [place] [id number] 07/12/2024 Cuba Peoa [facility] [address] [place] [id number] 07/13/2024 Cuba Peoa [facility] [address] [place] [id number] 07/13/2024 Cuba Peoa [facility] [address] [place] [id number] 08/12/2024 Cuba Peoa Assessments Encounter Date Diagnosis (ICD Code) Assessment [...] 27.0-27.9,adult (ICD-10 - Z68.27) Plan Of Treatment Next Appt Details Provider Name:Cuba ortiz, 01/23/2025 09:15:00 AM, [address] [facility], [address], [place], [place], [id number], Insurance Providers Payer Name Payer Address Payer Phone Subscriber Number Group Number Insured Name Patient Relationship to Insured Coverage Start Date Coverage End Date [employer] (MEDICAR E) [address] [address] [place] [address] [id number] OBED BLANK Self - patient is the [...] Replacement Colonoscopy 02/2016 Bilateral Neck Injections - [facility] 03/2020 Hospitalization History Reason Date(Month/Year)
--- OUTSIDE RECORDS SUMMARY | 2024-09-17 07:07 | XMS_ITS | Encounter Summary ---
Author Organization [employer] ([place], [place], [place], [place]) Address [address] [place] [address] Care Team Providers Care Scouts Name Role Phone Unavailable Primary Care Provider Unavailabl e Encounter Details Date Type Department Care Team (Late st Contact Info) Description 04/13/2018 Transcribed Document [facility] [place] [address] ProviderBren MD [address] [place] [id number] Social History Tobacco Use Types Packs/Day Years Used Date Smoking Tobacco: Never Assessed Comments Unknown Sex and Gender Information Value Date Recorded Sex Assigned at Not on file Legal Sex Female 3:10 PM CDT Gender Identity Not on file Sexual Orientation Not on file documented as of this encounter Miscellaneous Notes * Cerner Conversion Note - Bren ProviderMD - 04/13/2018 2:04 PM LAPIDARY APPRENTICE DATE OF ADMISSION: 04/13/2018 HISTORY OF PRESENT [...] for today's visit was reviewed by Dr. Esposito. He was actively involved with examination and [...] NUHA Pain Certified CC2: Stefania Gasca MD documented in this encounter Plan of Treatment Not on file documented as of this encounter Visit Diagnoses Not on filedocumented in this encounter
--- OUTSIDE RECORDS SUMMARY | 2024-09-17 07:07 | XMS_ITS | Clinical Summary ---
Author Organization [facility] Address [address] [place] [address] Care Team Providers Care Case Liner Name Role Phone Cuba Mcneill MD Primary Care Provider [phone] Social History Tobacco Use Types Packs/Day Years [...] Screening 1955 [facility]-Medicare Annual Wellness (AWV) 1955 [facility]-/Child/Adol SDOH Screenings 1955 [facility]- SDOH Screenings 06/14/1973 [facility]-Adult SDOH Screenings 06/14/1973 [facility]-DTaP,Tdap,and Td Vaccines (1 - Tdap) 06/14/1974 CT Colonography 06/14/2000 Colonoscopy 06/14/2000 FIT-DNA 06/14/2000 FIT 06/14/2000 FOBT 06/14/2000 Sigmoidoscopy 06/14/2000 [facility]-Colorectal Cancer Screening 06/14/2000 [id number]-50 Vaccine ( season) 2023 11/11/2020, 06/04/2020, 04/25/2020 [facility]-Breast Cancer Screening 02/29/202402/13, 12/15/2020, 11/22/2019, Additional history exists [facility]-Influenza Vaccine (#1) 10/14/202411/23, 10/29/2020, 10/30/2019, Additional history exists [facility]-RSV Vaccine: 60+ Years or (1 - 1-dose 75+ series) 06/14/2030 [facility]-Hepatitis A Vaccines Aged Out 11/07/2017 No longer eligible based on patient's age to complete this topic [facility]-Zoster Vaccines Completed 01/03/2020, 0 [facility]-Pneumococcal Vaccine: 50+ Years Completed 12/01/2021, 10/29/2020 [...] patient's age to complete this topic Insurance [address] [address] MEDICARE GENERIC COMMERCIAL Care Teams Case Liner Relationship Specialty Start Date End Date Cuba Mcneill MD [address] [place] [id number] [facility] - General 06/02/22
--- OUTSIDE RECORDS SUMMARY | 2024-09-17 07:07 | XMS_ITS | Clinical Summary ---
Author Organization [facility] Address [address] [place] [address], [address] [place] [phone] Care Team Providers Care Roof Bolting Coal Miner Name Role Phone Unavailable Primary Care Provider [...]
--- NOTE | 2024-09-17 07:30 | MR_ITS ---
FINAL REPORT CLINICAL HISTORY: Eval hammertoes,MTPJ ligament tear,stress fx, foot swelling x 2-3 weeks no injury COMPARISON: None FINDINGS: Multiplanar MR imaging of the left foot was performed with and without contrast. The Achilles tendon and plantar fascia are intact. There are prominent hammertoe deformities of the 1st through 5th digits, most evident at the 2nd through 4th digits. The 1st MTP joint appears intact. The Lisfranc ligament is intact. There is no evidence of marrow edema. The supporting tendons about the ankle are intact. There are moderate hypertrophic changes of the intertarsal and 1st tarsometatarsal joints. IMPRESSION: Prominent hammertoe deformities. No evidence of marrow edema. Moderate degenerative changes of the intertarsal and 1st tarsometatarsal joints. Reviewed, Interpreted and Dictated by Marcus Strauss MD Transcribed by Venita Michael Authenticated and [facility]
[2024-09-17 07:43] LABS: Blood Urea Nitrogen 22 mg/dl (7-17); Creatinine,Serum 1.10 mg/dl (0.52-1.04); Estimated Glomerular Filt Rate 49 ml/min (>60); GFR (African American) 60 ML/MIN (>60)
[2024-09-17] MEDS: GADOTERIDOL INJ 20ML SYRINGE 15 ML IV (08:56)
[2024-09-17] MEDS: SODIUM CHLORIDE 0.9% 10ML SYR (RAD ONLY) 10 ML IV (08:56)
== END 2024-09-17 23:59 | disposition home or self-care (01) ==
LOC: RAD 07:05
PROVIDERS: PCP Family Medicine; Visit Provider Podiatrist
DX: M76.72 Peroneal tendinitis, left leg (principal); M79.673 Pain in unspecified foot; M19.072 Primary osteoarthritis, left ankle and foot; M20.42 Other hammer toe(s) (acquired), left foot
CPT/HCPCS: 36415; 73720; 82565; 84520; A9576

== ENCOUNTER 2024-10-21 12:53 | Outpatient (CLI) | payer MEDICARE, OTHER, SELFPAY ==
--- OUTSIDE RECORDS SUMMARY | 2023-07-31 05:45 | XMS_ITS ---
Author Organization [facility] Address [address] [place] [id number] Care Team Providers Care It Technician Name Role Phone Cuba Mcneill Primary Care Provider [phone] Allergies Allergen (clinical drug ingredient) Drug/Non Drug Allergy documented on EMR Reaction Allergy Type Onset Date Status Sulfamethoxazole Unknown Drug Allergy Active Results Component Value Reference Range Notes P-Comprehensive Metabolic Pa jennifer (CMP) Reviewed date:08/02/2023 08:53:21 AM Interpretation:Cl 110, co2 119, creat 1.03, gfr 59 Performing Lab: Notes/Report: Test performed by [facility], [address] , [address], [place] [address] Cuauhtemoc Olmedo MD, Logging Worker CLIA: [id number] Sodium 145 135-145 mEq/L Potassium 4.1 3.5-5.3 [...] Interpretation:Normal Performing Lab: Notes/Report: Test performed by [facility] [place] [address] Cuauhtemoc Olmedo MD, Logging Worker CLIA: [id number] Cholesterol 166 <200 mg/dL Triglycerides 72 <150 [...] Interpretation:Normal Performing Lab: Notes/Report: [facility] [address], [place] [address] Cuauhtemoc Olmedo MD, Logging Worker CLIA: [id number] Phosphorus 3.4 2.5-4.5 mg/dL P-Parathyroid Hormone (PTH) Intact Reviewed date:08/02/2023 08:53:22 AM Interpretation:71.3 Performing Lab: Notes/Report: Test performed by [facility] , [facility] [address], [place] [address] Cuauhtemoc Olmedo MD, Logging Worker CLIA: [id number] Parathyroid Hormone (PTH) Intact 71.3 15.0-65.0 pg/mL P-TSH reflex to FT4 Reviewed date:08/02/2023 08:53:22 AM Interpretation:Normal Performing Lab: Notes/Report: Test performed by [facility] [address] , [place] [address] Cuauhtemoc Olmedo MD, Logging Worker CLIA: [id number] TSH reflex to FT4 2.29 0.43-5.25 mU/L P-Microalbumin/Creatinine, R andom Urine Sample Reviewed date:08/02/2023 08:53:22 AM Interpretation: Performing Lab: Notes/Report: Test performed by [facility] [address] , [place] [address] Cuauhtemoc Olmedo MD, Logging Worker CLIA: [id number] Albumin/Creatinine Ratio, Urine See Comment 0-30 ug/mg Unable to calculate Urine Albumin/Creatinine Ratio when urine creatinine or urine albumin fall outside established reportable range. Microalbumin, Urine, Random <0.3 Creatinine, Urine 83.5 P-Vitamin D 25-Hydroxy Reviewed date:08/02/2023 08:53:22 AM Interpretation:30.8 Performing Lab: Notes/Report: Test performed by [facility] [address] , [place] [address] Cuauhtemoc Olmedo MD, Logging Worker CLIA: [id number] Vitamin D 25-Hydroxy 30.8 30.0-100.0 ng/mL Interpretation [...] 40 MG Take 1 capsule by [facility] once daily Active Irbesartan 300 MG 1 [...] 07/31/2023 Encounters Encounter Location Date Provider Diagnosis [facility] [address] [facility] [address] [place], [place] [id number] 07/31/2023 Cuba Mcneill Essential hypertensi on I10 [...] 40 MG Take 1 capsule by [facility] once daily Irbesartan 300 MG 1 tab(s) orally once a day amLODIPine Besylate 5 MG 1 tablet orally once a day Alendronate Sodium 70 MG 1 tab(s) orally once a week Next Appt Details Follow Up: 6 Months, Reason: Provider Name:Cuba Yan ry, 01/23/2025 09:15:00 AM, [address], [address], [place], [place], [id number], Progress Notes * OBED BLANKDOB:1955 (69 yo F)Acc No.[id number]:07/31/2023 Progress Notes Patient: OBED LIGHT Provider: Gabrielle Mcneill M.D. :1955 A ge:68 Y S ex:Female Date:07/31/2023 Address:[address] [place], [place] [phone] Subjective: * Chief Complaints: * 1 . [...] , Colonoscopy 02/2016, Bilateral Neck Injections - [facility] 03/2020. * Family History: F [...] 25-Hydroxy 30.8 30.0-100.0 - ng/mL * Snow Tortter 08/02/2023 8:51 :31 AM >See phone encounter * Procedure Codes: G 2211 Complex e/m visit add on * Follow Up: 6 Months * Images: Billing Information: * Visit Code: 65955 Office Visit, Est Pt., Level 4. * Procedure Codes: G2211 Complex e/m visit add on. * Electronic signature of Concha Mcneill MD on 10/21/2024 at 12:58 PM EDT Sign off status: Pending * Provider: Gabrielle Mcneill M.D. Date: 0 07/31/2023 Generated for Harsh amin/Mroena/Roroitting on: 0 10/21/2024 12:58 PM EDT History and Physical Notes * [...]
--- OUTSIDE RECORDS SUMMARY | 2024-01-30 06:30 | XMS_ITS ---
Author Organization [facility] Address [address] [place] [id number] Care Team Providers Care Tree Expert Name Role Phone Cuba Mcneill Primary Care Provider Allergies Allergen (clinical drug ingredient) Drug/Non Drug Allergy documented on EMR Reaction Allergy Type Onset Date Status Sulfamethoxazole Unknown Drug Allergy Active Results Component Value Reference Range Notes P-Basic Metabolic Panel (BMP ) Reviewed date:01/31/2024 12:11:36 PM Interpretation:Na 146, chlor 111 Performing Lab: Notes/Report: Test performed by [facility] [address] [place] [address] , [place] [address] Cuauhtemoc Olmedo MD, Grounds Supervisor CLIA: [id number] Sodium 146 135-145 mmol/L Potassium 4.3 3.5-5.3 mmol/L Chloride 111 97-108 mmol/L CO2 24 22-32 mmol/L Glucose 96 65-99 mg/dL BUN 18 8-23 mg/dL Creatinine 0.98 0.50-1.00 mg/dL Calcium 8.7 8.6-10.4 mg/dL eGFR by Creatinine 63 >59 mL/min/1.73m2 P-Parathyroid Hormone (PTH) Intact Reviewed date:01/31/2024 12:11:36 PM Interpretation:88.6 Performing Lab: Notes/Report: Test performed by [facility] [address] [place], [place] [address] , [address], [place] [address] Cuauhtemoc Olmedo MD, Grounds Supervisor CLIA: [id number] Parathyroid Hormone (PTH) Intact 88.6 15.0-65.0 pg/mL P-Vitamin D 25-Hydroxy Reviewed date:01/31/2024 12:11:36 PM Interpretation:32 Performing Lab: Notes/Report: Test performed by [facility] [address] [place] [address] , [address], [place] [address] Cuauhtemoc Olmedo MD, Grounds Supervisor CLIA: [id number] Vitamin D 25-Hydroxy 32.0 30.0-100.0 ng/mL Interpretation of Vitamin D 25 OH: < 20 ng/mL - Deficiency 20 - 29 ng/mL - Insufficiency 30 - 100 ng/mL - Sufficiency > 100 ng/mL - Super-therapeutic- toxicity may occur above this level. Clinical correlation required. REASON FOR VISIT 6 month check Medications Medication SIG (Take, Route, Frequency, Duration) Notes Start Date End Date Status Omeprazole 40 MG 1 capsule 1/2 to 1 h our before morning meal Orally Once a day; Duration: 90 days Active Symbicort 80-4.5 MCG/ACT 1 puff as neede d Inhalation every 4 hrs Active traZODone HCl 50 MG 1 tablet at bedtime as needed Orally Once a day; Duration: 30 day(s) Active Irbesartan 300 MG 1 tab(s) orally once a day; Duration: 90 days Active EpiPen 2-Maurice 0.3 MG/0.3ML as directed in tramuscularly once Active buPROPion HCl ER (XL) 300 MG TAKE 1 TABLET BY MOUTH IN THE MORNING ONCE DAILY; Duration: 90 days Active Citalopram Hydrobromide 20 MG 1 tablet Orally Once a day; Duration: 90 days Active amLODIPine Besylate 5 MG 1 tablet orally once a day; Duration: 90 days Active Gabapentin 300 MG 1 or 2 cap(s) orally 2 times a day 10/06/2023 Active Alendronate Sodium 70 MG 1 tab(s) orally once a week Active Immunizations Vaccine Route Administration Date Status Comme nts Fluzone High Dose (65yr and older) IM Intramuscular 01/30/2024 Administered Problems Problem Type SNOMED Code ICD Code Onset Dates Problem Status W/U Status Risk Notes Problem Vitamin D deficiency (02693948) Vitamin D deficiency (E55.9) Active confirmed Vital Signs Blood pressure systolic 120 mm Hg 01/30/20 24 Blood pressure diastolic 72 mm Hg 024 Heart Rate 70 /min 01/30/2024 Height 65 in 01/30/2024 Weight 168.4 lbs 01/30/2024 BMI 28.02 kg/m2 01/30/2024 Encounters Encounter Location Date Provider Diagnosis Jennifer [address] [facility] [address] [facility] [address] [place], [place] [id number] 01/30/2024 Cuba Mcneill Essential hypertensi on I10 ; Stage 3a chronic kidney disease (CKD) N18.31 ; Vitamin D deficiency E55.9 ; Depressive disorder F32.9 and Encounter for immunization Z23 Assessments Encounter Date Diagnosis (ICD Code) Assessment Notes Treatment Notes Treatment Clinical Notes Section Notes 01/30/2024 Essential hypertension (ICD-10 - I10) 01/30/2024 Stage 3a chronic kidney disease (CKD) (ICD-10 - N18.31) 01/30/2024 Vitamin D deficiency (ICD-10 - E55.9) 01/30/2024 Depressive disorder (ICD-10 - F32.9) 01/30/2024 Encounter for immunization (ICD-10 - Z23) Plan Of Treatment Medication Medication Name Sig Start Date Stop Date Notes buPROPion HCl ER (XL) 300 MG TAKE 1 TABL ET BY MOUTH IN THE MORNING ONCE DAILY; Duration: 90 days Citalopram Hydrobromide 20 MG 1 tablet O rally Once a day; Duration: 90 days amLODIPine Besylate 5 MG 1 tablet orally once a day; Duration: 90 days Next Appt Details Follow Up: 6 Months, Reason: Provider Name:Cuba Yan , 01/23/2025 09:15:00 AM, [address] [facility] [address] [facility], [address], [place], [place], [id number], Progress Notes * OBED BLANKDOB:1955 (69 yo F)Acc No.[id number]:01/30/2024 Progress Notes Patient: OBED LIGHT Provider: Gabrielle Mcneill M.D. :1955 A ge:68 Y S ex:Female Date:01/30/2024 Address:[address] [place] [address] [id number] Subjective: * Chief Complaints: * 1 . 6 month check. * HPI: C ardiology: 68 year old female presents with c/o Blood Pressure Elevated?Pt here for 6 mo f/u hypertension, states she is doing well and does not have any concerns. c/o Hyperlipidemia P t is fasting today. * ROS: [...] , Colonoscopy 02/2016, Bilateral Neck Injections - [facility] 03/2020. * Hospitalization/Major Diagno stic Procedure: D enies Past Hospitalization. * Family History: F ather: , diagnosed [...] needed Inhalation every 4 hrs , Taking EpiPen 2-Maurice 0.3 MG/0.3ML Solution Auto-injector as directed intramuscularly once , Taking amLODIPine Besylate 5 MG Tablet 1 tablet orally once a day , Taking Alendronate Sodium 70 MG Tablet 1 tab(s) orally once a week , Taking Gabapentin 300 MG Capsule 1 or 2 cap(s) orally 2 times a day , Taking Citalopram Hydrobromide 20 MG Tablet 1 tablet Orally Once a day , Taking buPROPion HCl ER (XL) 300 MG Tablet Extended Release 24 Hour TAKE 1 TABLET BY MOUTH IN THE MORNING ONCE DAILY , Taking Omeprazole 40 MG Capsule Delayed Release 1 capsule 1/2 to 1 hour before morning meal Orally Once a day , Taking Irbesartan 300 MG Tablet 1 tab(s) orally once a day , Taking traZODone HCl 50 MG Tablet 1 tablet at bedtime as needed Orally Once a day , Medication List reviewed and reconciled with the patient * Allergies: S ulfamethoxazole. Objective: * Vitals: W t:168.4, Temp:97.8, BP:120/72, HR:70, O2 Sat:97% on AR, Nurse:milan, Ht: 65, BMI:28.02. * Examination: C ardiology: General Appearance: p leasant, NAD. H EENT: u nremarkable. H eart sounds: R RR, normal S1, S2. L ungs: c lear, no rales or wheezes.?Extremities: n o leg edema. P eripheral pulses: 2 plus bilateral. ? Assessment: * Assessment: 1. E ssential hypertension - I10 (Primary) 2 . S tage 3a chronic kidney disease (CKD) - N18.31 3 . V itamin D deficiency - E55.9 4 . D epressive disorder - F32.9 5 . E ncounter for immunization - Z23 ? Plan: * Treatment: 2. S tage 3a chronic kidney disease (CKD) L AB: P-Basic Metabolic Panel (BMP) (Collection Date & Time - 01/30/2024 09:45 AM) N a 146, chlor 111 Value Reference Range B UN 18 8-23 - mg/dL * C alcium 8.7 8.6-10.4 - mg/dL * C hloride 111 H 97-108 - mmol/L * C O2 24 22-32 - mmol/L * C reatinine 0.98 0.50-1.00 - mg/dL * G lucose 96 65-99 - mg/dL * P otassium 4.3 3.5-5.3 - mmol/L * S odium 146 H 135-145 - mmol/L * e GFR by Creatinine 63 >59 - mL/min/1.73m2 * Leatha Gorman 01/31/2024 12:11 :27 PM >See phone encounter ?LAB: P-Parathyroid Hormone (PTH) Intact (Collection Date & Time - 01/30/2024 09:45 AM)?88.6* Value Reference Range P arathyroid Hormone (PTH) Intact 88.6 H 15.0-65. 0 - pg/mL * Leatha Gorman 01/31/2024 12:11 :27 PM >See phone encounter 3.?Vitamin D deficiency?LAB: P-Vitamin D 25-Hydroxy (Collection Date & Time - 01/30/2024 09:45 AM)? 32* Value Reference Range V itamin D 25-Hydroxy 32.0 30.0-100.0 - ng/mL * Leatha Gorman 01/31/2024 12:11 :27 PM >See phone encounter 4.?Depressive disorder? Refill Citalopram Hydrobromide Tablet, 20 MG, 1 tablet, Orally, Once a day, 90 days, 90, Refills 1; Refill buPROPion HCl ER (XL) Tablet Extended Release 24 Hour, 300 MG, TAKE 1 TABLET BY MOUTH IN THE MORNING ONCE DAILY, 90 days, 90 Tablet, Refills 1.?? * Immunizations: Fluzone High Dose (65yr and older) : 0.5 mL (Route: Intramuscular) given by Yesica Tipton on Right Deltoid (Encounter for immunization) * Procedure Codes: G 2211 Complex e/m visit add on * Follow Up: 6 Months * Images: Billing Information: * Visit Code: 95943 Office Visit, Est Pt., Level 4. * Procedure Codes: G2211 Complex e/m visit add on. * Electronic signature of Concha Mcneill MD on 10/21/2024 at 12:59 PM EDT Sign off status: Pending * Provider: Gabrielle Mcneill M.D. Date: 1 04/01/2023 Generated for Harsh amin/Morena/eTjaylynsmitting on: 0 10/21/2024 12:59 PM EDT History and Physical Notes * HPI (History of Present Illness) Category Sub-Category Detail Notes Category Not es Cardiology Blood Pressure Elevated Pt here for 6 mo f/u hypertension, states she is doing well and does not have any concerns Hyperlipidemia Pt is fasting today Examination Category Sub-Category Detail Notes Category Not es Cardiology Lungs: clear, no rales or wheezes HEENT: unremarkable Heart sounds: RRR, normal S1, S2 Extremities: no leg edema Peripheral pulses: 2 plus bilateral General Appearance: pleasant, NAD
--- OUTSIDE RECORDS SUMMARY | 2024-07-23 05:45 | XMS_ITS ---
Author Organization [facility] Address [address] [place] [phone] Care Team Providers Care Physician Office Nurse Name Role Phone Osito Cuba Primary Care [...] 07/23/2024 Encounters Encounter Location Date [facility] [address] [phone] 07/23/2024 Cuba Mcneill Essential hypertensi on I10 [...] [address], [place], [id number], Progress Notes * OBED BLANKDOB:1955 (69 yo F)Acc No.[id number]:07/23/2024 Progress Notes Patient: OBED LIGHT Provider: Gabrielle Mcneill M.D. :1955 A ge:69 Y S ex:Female Date:07/23/2024 Address[facility] Subjective: * Chief Complaints: * 1 . [...] , Colonoscopy 02/2016, Bilateral Neck Injections - [facility] 03/2020. * Hospitalization/Major Diagno stic Procedure: D [...] Depressive disorder - F32.9 7 . B [place] 27.0-27.9,adult - Z68.27 Plan: * Treatment: 2.?Pure [...] * Images: Billing Information: * Visit Code: 02334 Office Visit, Est Pt., Level 4. * [...] 07/23/2024 Generated for Harsh amin/Morena/eTransmitting on: 0 10/21/2024 12:59 PM EDT History and Physical Notes * HPI (History of Present Illness) Category Sub-Category Detail Notes Category Not es Cardiology Blood Pressure Elevated Pt here for 6 mo f/u on hypertension. Pt states she is doing well and does not have any concerns today Hyperlipidemia Pt is not fasting to day
--- OUTSIDE RECORDS SUMMARY | 2024-07-24 04:35 | XMS_ITS ---
[facility] Address [address] [place] [phone] Care Team Providers Care Clinical Counselor Name Role Phone OsitoMadyCuba Primary Care Provider Results Component Value Reference Range Notes P-Comprehensive Metabolic Pa jennifer (CMP) Reviewed date:07/25/2024 11:29:04 AM Interpretation:Normal Performing Lab: Notes/Report: Test performed by [facility] [address] , [address], [place] [address] Cuauhtemoc Olmedo MD, Wheel Adjuster CLIA: [id number] Sodium 143 135-145 mmol/L Potassium 4.0 3.5-5.3 [...] 135 Performing Lab: Notes/Report: Test performed by [facility] [address] [facility] [address], [place] [address] Cuauhtemoc Olmedo MD, Wheel Adjuster VIJAYA: [id number] Cholesterol 198 <200 mg/dL Triglycerides 81 <150 [...] Interpretation:Normal Performing Lab: Notes/Report: Test performed by [facility] [address] [place] [address] , [facility] [address], [place] [address] Cuauhtemoc Olmedo MD, Wheel Adjuster CLIA: [id number] TSH reflex to FT4 2.74 0.43-5.25 mU/L P-Microalbumin/Creatinine, R andom Urine Sample Reviewed date:07/25/2024 11:29:05 AM Interpretation:Normal Performing Lab: Notes/Report: Test performed by [facility] [address] , [facility], [place] [address] Cuauhtemoc Olmedo MD, Wheel Adjuster CLIA: [id number] Albumin/Creatinine Ratio, Urine 2 0-30 ug/m g Microalbumin, Urine, Random 0.3 Creatinine, Urine 131.9 P-Vitamin D 25-Hydroxy Reviewed date:07/25/2024 11:29:05 AM Interpretation:42.2 Performing Lab: Notes/Report: Test performed by [facility] [address] [place] [address] , [facility] [address], [place] [address] Cuauhtemoc Olmedo MD, Wheel Adjuster CLIA: [id number] Vitamin D 25-Hydroxy 42.2 30.0-100.0 ng/mL Interpretation [...] Encounter Location Date Provider Diagnosis [facility] [address] [facility] 36 [facility] [address] [place] [phone] 07/24/2024 Cuba Mcneill Essential hypertensi on I10 [...] Name:Cuba Yan ry, 01/23/2025 09:15:00 AM, [address] [facility] 36 [facility], [address], [place], [place], [id number], Progress Notes * OBED BLANKDOB:1955 (69 yo F)Acc No.[id number]:07/24/2024 Patient: OBED LIGHT Provider: Gabrielle Mcneill M.D. :1955 A ge:69 Y S ex:Female Date:07/24/2024 Address[facility] Subjective: * Chief Complaints: * 1 . [...] to FT4 2.74 0.43-5.25 - mU/L * OscarSamuelia 07/25/2024 11:2 8:55 AM EDT > See [...] 07/24/2024 Generated for Harsh amin/Morena/Vivian on: 0 10/21/2024 12:58 PM EDT
--- NOTE | 2024-10-21 12:57 | XR_ITS ---
FINAL REPORT CLINICAL HISTORY: evaluate left 3rd metatarsal fracture COMPARISON: None FINDINGS: AP, oblique and lateral views of the left foot were obtained. There is a fracture of the distal third metatarsal shaft, with prominent surrounding callus formation. There is lateral angulation of the distal fragment. This fracture is of indeterminate age. Multijoint degenerative disease is present most pronounced at the first tarsometatarsal joint. No acute bony abnormality is identified. Soft tissues are unremarkable. IMPRESSION: Fracture of the distal third metatarsal shaft with prominent surrounding callus formation and lateral angulation of the distal fragment, age-indeterminate. Multijoint degenerative change is present most pronounced at the first tarsometatarsal joint. Consider CT or MRI for further evaluation if clinically indicated. Reviewed, Interpreted and Dictated by Aurea Alan MD Transcribed by Claudette Bennett Authenticated and [facility]
--- OUTSIDE RECORDS SUMMARY | 2024-10-21 12:58 | XMS_ITS | Clinical Summary ---
Author Organization [facility]win Diaz [facility] Address [address] [place] [address], [address] [place] [id number] Care Team Providers Care Cath Lab Radiology Technician Name Role Phone Unavailable Primary Care Provider [...]
--- OUTSIDE RECORDS SUMMARY | 2024-10-21 12:58 | XMS_ITS | Clinical Summary ---
Author Organization [facility] Address [address] [place] [address] Care Team Providers Care Loan Approver Name Role Phone Cuba Mcneill MD Primary Care Provider [phone] Social History Tobacco Use Types Packs/Day Years [...] 06/14/2000 Sigmoidoscopy 06/14/2000 [facility]-Colorectal Cancer Screening 06/14/2000 [facility]-Breast Cancer Screening 02/29/202402/13, 12/15/2020, 11/22/2019, Additional history exists [id number] Vaccine ( season) 2024 11/11/2020, 06/04/2020, 04/25/2020 [facility]-Influenza Vaccine (#1) 10/14/202411/23, 10/29/2020, 10/30/2019, Additional [...] patient's age to complete this topic [place] [address] [place] [address] MEDICARE GENERIC COMMERCIAL Care Teams Loan Approver Relationship Specialty Start Date End Date Cuba Mcneill MD [address] [place] [id number] [facility] - General 06/02/22
--- OUTSIDE RECORDS SUMMARY | 2024-10-21 12:59 | XMS_ITS | Clinical Summary ---
Author Organization [facility] Address [address] [place] [address] Care Team Providers Care Manager Wireless Name Role Phone Cuba Mcneill MD Primary Care Provider [phone] Allergies Active Allergy Reactions Criticality Noted Date [...] (11/03/2016): Added automatically from request for surgery [id number] Knee joint pain 10/30/2013 Family History Medical History Relation Name Comments [...] 11/03/2016 DXA SCAN 10/16/2020 10/16/2018 COVID-19 Vaccine (2024-2 6 season) 2024 11/11/2020, 06/04/2020, 04/25/2020 INFLUENZA VACCINE 11/13/2024 11/23/2021, , 10/30/2019, Additional history exists MAMMOGRAM 06/17/2026 06/17/2024, 05/2023, 02/28/2022, Additional history exists TDAP/TD VACCINES (2 - Td or Tdap) 07/16/2033 024 ZOSTER VACCINE Completed 01/03/2020, 10/30/2019 Pneumococcal Vaccine 50+ Completed 12/01/2021, 10/14 Medical Devices Implanted Type Area Sales Representative Meats Device Identifier Shelf Expiration Date Model / Serial / Lot Cmt Bone Endurance Smartset 40gm - [id number] Implanted:Qty : 2 on 11/23/2016 by Ashwin Nava MD at [facility] Implant Left: Knee DEPUY 04/12/2018 [id number] / / [id number] Stem Tib Persona Cmt 5d Eyal Lt - [id number] Implanted:Qty : 1 on 11/23/2016 by Ashwin Nava MD at [facility] Implant Left: Knee [facility]IO [facility] 07/13/2026 [id number] / / [id number] Comp Fem Persona Ps Cocr Cmt Nrw Sz6 Lt - [id number] Implanted:Qty : 1 on 11/23/2016 by Ashwin Nava MD at [facility] Implant Left: Knee [facility]IO [facility] 12/13/2025 [id number] / / [id number] Ext Stem Persona Tpr [id number] - [id number] Implanted:Qty : 1 on 11/23/2016 by Ashwin Nava MD at [facility] Implant Left: Knee [facility] 11/12/2026 [id number] / / [id number] Description:NOT INCLUDED IN CAP CHARGE Pat Persona Allpoly Cmt 8x29mm - [id number] Implanted:Qty : 1 on 11/23/2016 by Ashwin Nava MD at [facility] Implant Left: Knee [facility]IO [facility] 08/12/2024 [id number] / / [id number] Art/Srf Kn Persona/Ve Ps Mc Ef Sz12 12mm Lt - [id number] Implanted:Qty : 1 on 11/23/2016 by Ashwin Nava MD at [facility] Implant Left: Knee [facility]IO [facility] 07/13/2021 [id number] / / [id number] Totl Kn Fm Xavier Ve Cps Rogelio - [id number] Implanted:Qty : 1 on 11/23/2016 by Ashwin Nava MD at [facility] Implant Left: Knee [facility] CAPKNEETOTALZI M6 / / Baseplt Tib Triath Ts No3 - [id number] Implanted:Qty : 1 on 02/01/2017 by Chuy Cervantes MD at [facility] Implant Right: Knee JOSEMANUEL JEFFREY 12/22/2021 [id number] / / [id number] Comp Fem Triath Cr No4 Rt - [id number] Implanted:Qty : 1 on 02/01/2017 by Chuy Cervantes MD at [facility] Implant Right: Knee JOSEMANUEL JEFFREY 11/03/2021 [id number] / / [id number] Tib Triath C/S X3 Sz3 13mm - [id number] Implanted:Qty : 1 on 02/01/2017 by Chuy Cervantes MD at [facility] Implant Right: Knee JOSEMANUEL JEFFREY 09/22/2021 [id number] / / [id number] Pat Triath Asym X3 9x29mm - [id number] Implanted:Qty : 1 on 02/01/2017 by Chuy Cervantes MD at [facility] Implant Right: Knee JOSEMANUEL JEFFREY 08/03/2021 [id number] / / [id number] Totl Kn Hi Demand Josemanuel - [id number] Implanted:Qty : 1 on 02/01/2017 by Chuy Cervantes MD at [facility] Implant Right: Knee JOSEMANUEL JEFFREY CAPKNTOTLHIDEM STRY2 / / Cmt Bone Simplex/P Full Dose 10/Pk - [id number] Implanted:Qty : 2 on 02/01/2017 by Chuy Cervantes MD at [facility] Implant JOSEMANUEL JEFFREY 07/14/2019 [id number] / / [id number] Explanted Type Area Sales Representative Meats Device Identifier Shelf Expiration Date Model / Serial / Lot Scrw Hex Buddya Fml 2.5x25mm - [id number] Implanted:Qty : 1 Explanted:Qty : 1 on 11/23/2016 at [facility] Implant Left: Knee [employer] 09/12/2026 [id number] / / [id number] Procedures Procedure Name Priority Date/Time Associated Diagnosis Comments MAMMO SCREENING DIGITAL TOMOSYNTHESIS BILATERAL W CAD Routine 06/17/2024 11:26 AM EDT Visit for screening mammogram from Last 3 Months or Most Recently Relevant to Health Maintenance Results * Mammo Screening Digital Tomosynthesis Bilateral With [...] F inal Result from Last 3 Months or Most Recently Relevant to Health Maintenance Insurance [place] [id number] [employer] MEDICARE ADVANTAGE PPO Advance Directives * Full Code (Latest Code Status on File) Date Activated Date Inactivated Comments 02/01/2017 2:03 PM 02/03/2017 3:59 PM * Full Code Date Activated Date Inactivated Comments 11/23/2016 5:26 PM 11/25/2016 4:23 PM Care Teams Manager Wireless Relationship Specialty Start Date End Date Cuba Mcneill MD [address] [facility] [address] [facility] [address] [place] [address] PCP - General Combination Presser 03/02/20
--- OUTSIDE RECORDS SUMMARY | 2024-10-21 12:59 | XMS_ITS | Encounter Summary ---
Author Organization [facility] Address [address] [place] [phone] Care Team Providers Care Nurse Examiner Name Role Phone Cuba Mcneill MD Primary Care Provider [phone] Encounter Details Date Type Department Care Team (Late st Contact Info) Description 06/24/2024 Results Follow-Up [facility] [address] [place] [address] Rochelle Brunson, CHERRY PICKER OPERATOR [address] [facility] [address] [place] [address] Social History Tobacco Use Types Packs/Day Years [...] on filedocumented in this encounter Care Teams Nurse Examiner Relationship Specialty Start Date End Date Cuba Mcneill MD [address] [place] [address] [place] [address] [place] [address] PCP - General Air Traffic Control Supervisor 03/02/20 documented as of this encounter
--- OUTSIDE RECORDS SUMMARY | 2024-10-21 12:59 | XMS_ITS | Patient Health Record ---
Author Organization [facility] Address [address] [place] [id number] Care Team Providers Care Cnp Name Role Phone Cuba Mcneill Primary Care Provider Allergies Allergen (clinical drug ingredient) Drug/Non Drug Allergy documented on EMR Reaction Allergy Type Onset Date Status Sulfamethoxazole Unknown Drug Allergy Active Results Component Value Reference Range Notes Bone density Reviewed date:08/13/2024 10:19:38 AM Interpretation:osteoporosis and osteopenia Performing Lab: Notes/Report: osteoporosis and osteopenia P-Vitamin D 25-Hydroxy Reviewed date:07/25/2024 11:29:05 AM Interpretation:42.2 Performing Lab: Notes/Report: Test performed by [facility] [address] [place], [place] [address]. [place] , [address], [place] [address] Cuauhtemoc Olmedo MD, Planting Material Unloader CLIA: [id number] Vitamin D 25-Hydroxy 42.2 30.0-100.0 ng/mL Interpretation of Vitamin D 25 OH: < 20 ng/mL - Deficiency 20 - 29 ng/mL - Insufficiency 30 - 100 ng/mL - Sufficiency > 100 ng/mL - Super-therapeutic- toxicity may occur above this level. Clinical correlation required. P-Microalbumin/Creatinine, R andom Urine Sample Reviewed date:07/25/2024 11:29:05 AM Interpretation:Normal Performing Lab: Notes/Report: Test performed by [facility] [address] [place], [place] [address]. [place] , [address], [place] [address] Cuauhtemoc Olmedo MD, Planting Material Unloader CLIA: [id number] Albumin/Creatinine Ratio, Urine 2 0-30 ug/m g Microalbumin, Urine, Random 0.3 Creatinine, Urine 131.9 P-TSH reflex to FT4 Reviewed date:07/25/2024 11:29:05 AM Interpretation:Normal Performing Lab: Notes/Report: Test performed by [facility] [address] [place] [address] [place] [address] Cuauhtemoc Olmedo MD, Planting Material Unloader CLIA: [id number] TSH reflex to FT4 2.74 0.43-5.25 mU/L P-Lipid Panel Reviewed date:07/25/2024 11:29:04 AM Interpretation:non-hdl 151, ldl 135 Performing Lab: Notes/Report: Test performed by [facility] [address] [place] [address] [address] , [place] [address] Cuauhtemoc Olmedo MD, Planting Material Unloader CLIA: [id number] Cholesterol 198 <200 mg/dL Triglycerides 81 <150 [...] Interpretation:Normal Performing Lab: Notes/Report: Test performed by [facility] [address] [place] [address] , [address], [place] [address] Cuauhtemoc Olmedo MD, Planting Material Unloader CLIA: [id number] Sodium 143 135-145 mmol/L Potassium 4.0 3.5-5.3 [...] Ratio 1.9 1.1-2.5 P-Vitamin D 25-Hydroxy Reviewed date:07/25/2024 11:30:38 AM Interpretation: Performing Lab: Notes/Report: P-Microalbumin/Creatinine, R andom Urine Sample Reviewed date:07/25/2024 11:30:59 AM Interpretation: Performing Lab: Notes/Report: P-TSH reflex to FT4 Reviewed date:07/25/2024 11:30:21 AM Interpretation: Performing Lab: Notes/Report: P-Lipid Panel Reviewed date:07/25/2024 11:30:02 AM Interpretation: Performing Lab: Notes/Report: P-Comprehensive Metabolic Pa jennifer (CMP) Reviewed date:07/25/2024 11:31:34 AM Interpretation:see duplicate order Performing Lab: Notes/Report: see duplicate order P-Vitamin D 25-Hydroxy Reviewed date:01/31/2024 12:11:36 PM Interpretation:32 Performing Lab: Notes/Report: Test performed by [facility] [address] [place], [place] [address]. [place] , [address], [place] [address] Cuauhtemoc Olmedo MD, Planting Material Unloader CLIA: [id number] Vitamin D 25-Hydroxy 32.0 30.0-100.0 ng/mL Interpretation of Vitamin D 25 OH: < 20 ng/mL - Deficiency 20 - 29 ng/mL - Insufficiency 30 - 100 ng/mL - Sufficiency > 100 ng/mL - Super-therapeutic- toxicity may occur above this level. Clinical correlation required. P-Parathyroid Hormone (PTH) Intact Reviewed date:01/31/2024 12:11:36 PM Interpretation:88.6 Performing Lab: Notes/Report: Test performed by [facility] [address] [place] [address] , [address], [place] [address] Cuauhtemoc Olmedo MD, Planting Material Unloader CLIA: [id number] Parathyroid Hormone (PTH) Intact 88.6 15.0-65. 0 pg/mL P-Basic Metabolic Panel (BMP ) Reviewed date:01/31/2024 12:11:36 PM Interpretation:Na 146, chlor 111 Performing Lab: Notes/Report: Test performed by [facility] [address] [place], [place] [address]. [place] , [address], [place] [id number] Cuauhtemoc Olmedo MD, Planting Material Unloader CLIA: [id number] Sodium 146 135-145 mmol/L Potassium 4.3 3.5-5.3 mmol/L Chloride 111 97-108 mmol/L CO2 24 22-32 mmol/L Glucose 96 65-99 mg/dL BUN 18 8-23 mg/dL Creatinine 0.98 0.50-1.00 mg/dL Calcium 8.7 8.6-10.4 mg/dL eGFR by Creatinine 63 >59 mL/min/1.73m2 Reason For Referral No Information Medications Medication SIG (Take, Route, Frequency, Duration) Notes Start Date End Date Status amLODIPine Besylate 5 MG 1 and a 1/2 (on e and a half) Orally Once a day; Duration: 90 days Active Omeprazole 40 MG 1 capsule 1/2 to 1 h our before morning meal Orally Once a day; Duration: 90 days Active buPROPion HCl ER (XL) 300 MG 1 tablet in the morning Orally Once a day; Duration: 90 days Active EPINEPHrine 0.3 MG/0.3ML USE DIRECTED ; Duration: 1 Active Gabapentin 300 MG 1 or 2 cap(s) orally 2 times a day 10/07/2024 Active Alendronate Sodium 70 MG Take 1 tablet b y mouth once a week; Duration: 84 Active traZODone HCl 50 MG take 1 tablet orally at bedtime, prn; Duration: 30 days Active Symbicort 80-4.5 MCG/ACT 1 puff as neede d Inhalation every 4 hrs Active Citalopram Hydrobromide 20 MG 1 tablet Orally Once a day; Duration: 90 days Active Irbesartan 300 MG 1 tablet Orally Once a day; [...] Status W/U Status Risk Notes Problem Insomnia (765866621) Insomnia (G47.00) Active c onfirmed Problem Vitamin D deficiency (68343866) Vitamin D deficiency (E55.9) Active confirmed Problem Essential hypertension (00887177) Essential hypertension (I10) Active confirmed Problem Osteopenia (314882569) Osteopenia (M85.80) Active confirmed Problem Sciatica (84990310) Lumbago with sciatica, right side (M54.41) Active confirmed Problem Chronic pain (80161231) Other chronic pain (G89.29) Active confirmed Problem Primary generalised osteoarthritis (801560977) Primary osteoarthritis, unspecified site (M19.91) Active confirmed Problem Age-related osteoporosis (925147892) Age-related osteoporosis without current pathological fracture (M81.0) Active confirmed Problem Depressive disorder (50682970) Depressive disorder (F32.9) Active confirmed Problem Renal insufficiency (326640486) Renal insufficiency (N28.9) Active confirmed Problem Gastroesophageal reflux disease (disorder) (413301201) Chronic GERD (K21.9) Active confirmed Problem Cervical spondylosis without myelopathy (058499743) Osteoarthritis of spine with radiculopathy, cervical region (M47.22) Active confirmed Problem Cataract (611407165) Cataracts, bilateral (H26.9) Active confirmed Problem Pure hypercholesterolemia (294252447) Pure hypercholesterolemia (E78.00) Active confirmed Problem Atelectasis (20826971) Atelectasis of left lung (J98.11) Active confirmed Problem Adjustment disorder with depressed mood (26356740) Grief reaction (F43.21) Active confirmed Problem Primary hypertension (70613048) Primary hypertension (I10) Active confirmed Problem Chronic kidney disease stage 3A (disorder) (724622507) Stage 3a chronic kidney disease (CKD) (N18.31) Active confirmed Vital Signs Heart Rate 88 /min 07/23/2024 Blood pressure diastolic 70 mm Hg 07/23/2024 Height 65 in 07/23/2024 Blood pressure systolic 118 mm Hg 07/23/2024 Weight 167.6 lbs 07/23/2024 BMI 27.89 kg/m2 07/23/2024 Encounters Encounter Location Date Provider Diagnosis [facility] [address] [place], [place] [id number] 01/30/2024 [place] Essential hypertensi on I10 ; Stage 3a chronic kidney disease (CKD) N18.31 ; Vitamin D deficiency E55.9 ; Depressive disorder F32.9 and Encounter for immunization Z23 [facility] [address] [place], [place] [id number] 07/23/2024 [place] Essential hypertensi on I10 ; Pure hypercholesterolemia E78.00 ; Vitamin D deficiency E55.9 ; Insomnia G47.00 ; Stage 3a chronic kidney disease (CKD) N18.31 ; Depressive disorder F32.9 and BMI 27.0-27.9,adult Z68.27 [facility] [address] [facility] [address] [place], [place] [id number] 07/24/2024 [place] Essential hypertensi on I10 ; Pure hypercholesterolemia E78.00 and Vitamin D deficiency E55.9 [facility] [address] [place], [place] [id number] 01/31/2024 [place] [facility] [address] [place] [id number] 02/09/2024 [place] [facility] [address] [place], [place] [id number] 02/12/2024 [place] Age-related osteopor osis without current pathological fracture M81.0 [facility] [address] [place], [place] [id number] 04/08/2024 [place] Lumbago with sciatic a, right side M54.41 [facility] [address] [place] [id number] 07/25/2024 [place] [facility] [address] [place], [place] [id number] 07/27/2024 [place] Screening for osteop orosis Z13.820 [facility] [address] [place], [place] [id number] 10/07/2024 [place] Lumbago with sciatic a, right side M54.41 [facility] [address] [place] [id number] 11/23/2023 [place] [facility] [address] [place], [place] [id number] 04/08/2024 [place] [facility] [address] [place], [place] [id number] 07/12/2024 [place] [facility] [address] [place], [place] [id number] 07/13/2024 [place] [facility] [address] [place], [place] [id number] 07/13/2024 [place] [facility] [address] [place], [place] [id number] 08/12/2024 [place] Assessments Encounter Date Diagnosis (ICD Code) Assessment Notes Treatment Notes Treatment Clinical Notes Section Notes 01/30/2024 Essential hypertensi on (ICD-10 - I10) [...] 07/27/2024 Screening for osteoporosis (ICD-10 - Z13.820) 10/07/2024 Lumbago with sciatic a, right side (ICD-10 - M54.41) 07/24/2024 Vitamin D deficiency (ICD-10 - E55.9) [...] Name:Cuba ortiz, 01/23/2025 09:15:00 AM, [address] [facility] [address] [facility], [address], [place], [place], [id number], Insurance Providers Payer Name Payer Address Payer Phone Subscriber Number Group Number Insured Name Patient Relationship to Insured Coverage Start Date Coverage End Date [employer] (MEDICAR E) [address] [address] [place] [address] [id number] OBED BLANK Self - patient is the [...] Replacement Colonoscopy 02/2016 Bilateral Ne[facility] - [facility] 03/2020 Hospitalization History Reason Date(Month/Year)
== END 2024-10-21 23:59 | disposition home or self-care (01) ==
LOC: RAD 12:54
PROVIDERS: PCP Family Medicine; Visit Provider Podiatrist
DX: S92.332A Displaced fracture of third metatarsal bone, left foot, initial encounter for closed fracture (principal); M19.072 Primary osteoarthritis, left ankle and foot
CPT/HCPCS: 73630

== ENCOUNTER 2024-11-18 14:01 | Outpatient (CLI) | payer MEDICARE, OTHER, SELFPAY ==
--- OUTSIDE RECORDS SUMMARY | 2023-07-31 05:45 | XMS_ITS ---
Author Organization [facility] Address [address] [place] [id number] Care Team Providers Care Clinical Nursing Director Name Role Phone Cuba Mcneill Primary Care Provider Allergies Allergen (clinical drug ingredient) Drug/Non Drug Allergy documented on EMR Reaction Allergy Type Onset Date Status Sulfamethoxazole Unknown Drug Allergy Active Results Component Value Reference Range Notes P-Comprehensive Metabolic Pa jennifer (CMP) Reviewed date:08/02/2023 08:53:21 AM Interpretation:Cl 110, co2 119, creat 1.03, gfr 59 Performing Lab: Notes/Report: Test performed by [facility], [address] , [address], [place] [address] Cuauhtemoc Olmedo MD, Ice Cream Vendor CLIA: [id number] Sodium 145 135-145 mEq/L Potassium 4.1 3.5-5.3 mEq/L Chloride 110 97-108 mEq/L CO2 19 22-32 mEq/L Glucose 91 65-99 mg/dL BUN 20 8-23 mg/dL Creatinine 1.03 0.50-1.00 mg/dL Calcium 8.8 8.6-10.4 mg/dL eGFR by Creatinine 59 >59 mL/min/1.73m2 Protein 6.2 6.0-8.3 g/dL Albumin 4.1 3.5-5.3 g/dL Alkaline Phosphatase 55 35-121 IU/L ALT (SGPT) 12 <5-47 IU/L AST (SGOT) 27 <5-40 IU/L Bilirubin, Total 0.5 <0.2-1.2 mg/dL A/G Ratio 2.0 1.1-2.5 mg/dL P-Lipid Panel Reviewed date:08/02/2023 08:53:21 AM Interpretation:Normal Performing Lab: Notes/Report: Test performed by [facility] [place] [address] Cuauhtemoc Olmedo MD, Ice Cream Vendor CLIA: [id number] Cholesterol 166 <200 mg/dL Triglycerides 72 <150 mg/dL HDL Cholesterol 42 >39 mg/dL Cholesterol / HDL Ratio 3.95 0.00-4.44 Ratio Non-HDL Cholesterol 124 <130 mg/dL LDL Cholesterol (Calculation) 110 <130 mg/dL LDL Cholesterol Levels* Less than 100 mg/dL Optimal 100 to 129 mg/dL Near Optimal/ Above Optimal 130 to 159 mg/dL Borderline High 160 to 189 mg/dL High 190 mg/dL and above Very High * Categories as recommended by the 2004 ATPIII guidelines LDL/HDL Ratio 2.6 <3.3 Ratio LDL Cholesterol Patient History Test Date: 07/31/2023 LDL Results: 110 Units: mg/dL % Change: - P-Phosphorus Reviewed date:08/02/2023 08:53:21 AM Interpretation:Normal Performing Lab: Notes/Report: Test performed by [facility] [address], [place] [address] Cuauhtemoc Olmedo MD, Ice Cream Vendor CLIA: [id number] Phosphorus 3.4 2.5-4.5 mg/dL P-Parathyroid Hormone (PTH) Intact Reviewed date:08/02/2023 08:53:22 AM Interpretation:71.3 Performing Lab: Notes/Report: Test performed by [facility] , [facility] [address], [place] [address] Cuauhtemoc Olmedo MD, Ice Cream Vendor CLIA: [id number] Parathyroid Hormone (PTH) Intact 71.3 15.0-65.0 pg/mL P-TSH reflex to FT4 Reviewed date:08/02/2023 08:53:22 AM Interpretation:Normal Performing Lab: Notes/Report: Test performed by [facility] [address] , [facility] [place] [address] Cuauhtemoc Olmedo MD, Ice Cream Vendor CLIA: [id number] TSH reflex to FT4 2.29 0.43-5.25 mU/L P-Microalbumin/Creatinine, R andom Urine Sample Reviewed date:08/02/2023 08:53:22 AM Interpretation: Performing Lab: Notes/Report: Test performed by [facility] [address] , [place] [address] Cuauhtemoc Olmedo MD, Ice Cream Vendor CLIA: [id number] Albumin/Creatinine Ratio, Urine See Comment 0-30 ug/mg Unable to calculate Urine Albumin/Creatinine Ratio when urine creatinine or urine albumin fall outside established reportable range. Microalbumin, Urine, Random <0.3 Creatinine, Urine 83.5 P-Vitamin D 25-Hydroxy Reviewed date:08/02/2023 08:53:22 AM Interpretation:30.8 Performing Lab: Notes/Report: Test performed by [facility] [address] , [place] [address] Cuauhtemoc Olmedo MD, Ice Cream Vendor CLIA: [id number] Vitamin D 25-Hydroxy 30.8 30.0-100.0 ng/mL Interpretation of Vitamin D 25 OH: < 20 ng/mL - Deficiency 20 - 29 ng/mL - Insufficiency 30 - 100 ng/mL - Sufficiency > 100 ng/mL - Super-therapeutic- toxicity may occur above this level. Clinical correlation required. REASON FOR VISIT check up with blood work Medications Medication SIG (Take, Route, Frequency, Duration) Notes Start Date End Date Status Gabapentin 300 MG 1 or 2 cap(s) orally 2 times a day 03/29/2023 Active EpiPen 2-Maurice 0.3 MG/0.3ML as directed in tramuscularly once Active Citalopram Hydrobromide 20 MG 1 tablet Orally Once a day; Duration: 90 days Active buPROPion HCl ER (XL) 300 MG 1 tablet in the morning Orally Once a day; Duration: 90 days Active Symbicort 80-4.5 MCG/ACT 1 puff as neede d Inhalation every 4 hrs Active Omeprazole 40 MG Take 1 capsule by [facility] once daily Active Irbesartan 300 MG 1 tab(s) orally once a day Active amLODIPine Besylate 5 MG 1 tablet orally once a day Active Alendronate Sodium 70 MG 1 tab(s) orally once a week Active traZODone HCl 50 MG 1 tablet at bedtime as needed Orally Once a day; Duration: 30 day(s) 07/17/2023 Active Vital Signs Blood pressure systolic 118 mm Hg 07/31/19 24 Blood pressure diastolic 72 mm Hg 024 Heart Rate 73 /min 07/31/2023 Height 65 in 07/31/2023 Weight 168.4 lbs 07/31/2023 BMI 28.02 kg/m2 07/31/2023 Encounters Encounter Location Date Provider Diagnosis [facility] [address] [facility] [address] [facility] [address] [place], [place] [phone] 07/31/2023 Cuba Mcneill Essential hypertensi on I10 ; Pure hypercholesterolemia E78.00 ; Stage 3a chronic kidney disease (CKD) N18.31 ; Chronic GERD K21.9 and Age-related osteoporosis without current pathological fracture M81.0 Assessments Encounter Date Diagnosis (ICD Code) Assessment Notes Treatment Notes Treatment Clinical Notes Section Notes 07/31/2023 Essential hypertensi on (ICD-10 - I10) 07/31/2023 Pure hypercholesterolemia (ICD-10 - E78.00) 07/31/2023 Stage 3a chronic kid maranda disease (CKD) (ICD-10 - N18.31) 07/31/2023 Chronic GERD (ICD-10 - K21.9) 07/31/2023 Age-related osteopor osis without current pathological fracture (ICD-10 - M81.0) Plan Of Treatment Medication Medication Name Sig Start Date Stop Date Notes Omeprazole 40 MG Take 1 capsule by [facility] once daily Irbesartan 300 MG 1 tab(s) orally once a day amLODIPine Besylate 5 MG 1 tablet orally once a day Alendronate Sodium 70 MG 1 tab(s) orally once a week Next Appt Details Follow Up: 6 Months, Reason: Provider Name:Cuba Yan ry, 01/23/2025 09:15:00 AM, [address], [address], [place], [place], [phone], Progress Notes * OBED BLANKDOB:1955 (69 yo F)Acc No.[id number]:07/31/2023 Progress Notes Patient: OBED LIGHT Provider: Gabrielle Mcneill M.D. :1955 A ge:68 Y S ex:Female Date:07/31/2023 Address:[address] [place], [place] [phone] Subjective: * Chief Complaints: * 1 . Check up with blood work. * HPI: C ardiology: Blood Pressure Elevated P t presents today for a check up. Pt sts that she has no new concerns or complaints at this time. E ndocrinology: Maintenance P t is fasting today. * ROS: D ERMATOLOGY: no R aman. n o H omar. G ASTROENTEROLOGY: no N ausea. n o V omiting. U ROLOGY: no D ifficulty urinating. n o B lood in urine. * Medical History: H ypertension, Hyperlipidemia, Renal Insufficiency, Depression, Allergic Rhinitis, Arthritis, Bee Sting/ Hornets - Allergy, Osteoporosis, Chronic Back Pain, s/p Pain Management Tx , Spinal Stenosis, Lumbar Disc Disease, Colon Polyps, Cervical Spine Osteoarthritis, Cervical Disc Disease, Asthma. * Surgical History: B ilateral Carpel Tunnel , Hysterectomy , Bilateral Knee Replacement , Colonoscopy 02/2016, Bilateral Neck Injections - [facility] 03/2020. * Family History: F ather: , diagnosed with Diabetes. M other: alive, diagnosed with Hypertension.?Siblings: alive. 1 brother(s) , 2 sister(s) - healthy. . Breast Cancer, Colon Cancer. * Social History: C URRENT TOBACCO USE: No . C affeine: 1 cup daily. Past smoking status: never smoked. * Medications: T aking Symbicort 80-4.5 MCG/ACT Aerosol 1 puff as needed Inhalation every 4 hrs , Taking Alendronate Sodium 70 MG Tablet 1 tab(s) orally once a week , Taking Gabapentin 300 MG Capsule 1 or 2 cap(s) orally 2 times a day , Taking amLODIPine Besylate 5 MG Tablet 1 tablet orally once a day , Taking Irbesartan 300 MG Tablet 1 tab(s) orally once a day , Taking buPROPion HCl ER (XL) 300 MG Tablet Extended Release 24 Hour 1 tablet in the morning Orally Once a day , Taking Citalopram Hydrobromide 20 MG Tablet 1 tablet Orally Once a day , Taking EpiPen 2-Maurice 0.3 MG/0.3ML Solution Auto-injector as directed intramuscularly once , Taking Omeprazole 40 MG Capsule Delayed Release Take 1 capsule by mouth once daily , Taking traZODone HCl 50 MG Tablet 1 tablet at bedtime as needed Orally Once a day , Discontinued Medrol 4 MG Tablet Therapy Pack as directed Orally , Discontinued Doxycycline Hyclate 100 MG Capsule 1 capsule Orally Two times a day , Discontinued Amoxicillin-Pot Clavulanate 875-125 MG Tablet 1 tablet Orally every 12 hrs , Medication List reviewed and reconciled with the patient * Allergies: S ulfamethoxazole. Objective: * Vitals: W t:168.4, Temp:97.8, BP:118/72, HR:73, O2 Sat:97% on RA, Nurse:HEENA, Ht: 65, BMI:28.02. * Examination: C ardiology: General Appearance: p leasant, NAD. H EENT: u nremarkable. H eart sounds: R RR, normal S1, S2. L ungs: c lear, no rales or wheezes.?Extremities: n o leg edema. P eripheral pulses: 2 plus bilateral. ? Assessment: * Assessment: 1. E ssential hypertension - I10 (Primary) 2 . P ure hypercholesterolemia - E78.00 3 . S tage 3a chronic kidney disease (CKD) - N18.31 4 .?Chronic GERD - K21.9 5 . A ge-related osteoporosis without current pathological fracture - M81.0 Plan: * Treatment: Value Reference Range A /G Ratio 2.0 1.1-2.5 - mg/dL * A lbumin 4.1 3.5-5.3 - g/dL * A lkaline Phosphatase 55 35-121 - IU/L * A LT (SGPT) 12 <5-47 - IU/L * A ST (SGOT) 27 <5-40 - IU/L * B ilirubin, Total 0.5 <0.2-1.2 - mg/dL * B UN 20 8-23 - mg/dL * C alcium 8.8 8.6-10.4 - mg/dL * C hloride 110 H 97-108 - mEq/L * C O2 19 L 22-32 - mEq/L * C reatinine 1.03 H 0.50-1.00 - mg/dL * G lucose 91 65-99 - mg/dL * P otassium 4.1 3.5-5.3 - mEq/L * S odium 145 135-145 - mEq/L * P rotein 6.2 6.0-8.3 - g/dL * e GFR by Creatinine 59 L >59 - mL/min/1.73m2 * Snow Trotter 08/02/2023 8:51 :31 AM >See phone encounter ?LAB: P-Microalbumin/Creatinine, Random Urine Sample (Collection Date & Time - 07/31/2023 09:15 AM)* Value Reference Range A lbumin/Creatinine Ratio, Urine See Comment L 0-30 - ug /mg * C reatinine, Urine 83.5 - mg/dL * M icroalbumin, Urine, Random <0.3 - mg/dL * Snow Trotter 08/02/2023 8:51 :31 AM >See phone encounter 2.?Pure hypercholesterolemia?LAB: P-Comprehensive Metabolic Panel (CMP) (Collection Date & Time - 07/31/2023 09:15 AM)?Cl 110, co2 119, creat 1.03, gfr 59* Value Reference Range A /G Ratio 2.0 1.1-2.5 - mg/dL * A lbumin 4.1 3.5-5.3 - g/dL * A lkaline Phosphatase 55 35-121 - IU/L * A LT (SGPT) 12 <5-47 - IU/L * A ST (SGOT) 27 <5-40 - IU/L * B ilirubin, Total 0.5 <0.2-1.2 - mg/dL * B UN 20 8-23 - mg/dL * C alcium 8.8 8.6-10.4 - mg/dL * C hloride 110 H 97-108 - mEq/L * C O2 19 L 22-32 - mEq/L * C reatinine 1.03 H 0.50-1.00 - mg/dL * G lucose 91 65-99 - mg/dL * P otassium 4.1 3.5-5.3 - mEq/L * S odium 145 135-145 - mEq/L * P rotein 6.2 6.0-8.3 - g/dL * e GFR by Creatinine 59 L >59 - mL/min/1.73m2 * Snow Trotter 08/02/2023 8:51 :31 AM >See phone encounter ?LAB: P-Lipid Panel (Collection Date & Time - 07/31/2023 09:15 AM)?Normal* Value Reference Range C holesterol / HDL Ratio 3.95 0.00-4.44 - Ratio * C holesterol 166 <200 - mg/dL * H DL Cholesterol 42 >39 - mg/dL * L DL Cholesterol (Calculation) 110 <130 - mg/d L * L DL/HDL Ratio 2.6 <3.3 - Ratio * N on-HDL Cholesterol 124 <130 - mg/dL * T riglycerides 72 <150 - mg/dL * Snow Trotter 08/02/2023 8:51 :31 AM >See phone encounter ?LAB: P-TSH reflex to FT4 (Collection Date & Time - 07/31/2023 09:15 AM)? Normal* Value Reference Range T SH reflex to FT4 2.29 0.43-5.25 - mU/L * Snow Trotter 08/02/2023 8:51 :31 AM >See phone encounter 3.?Stage 3a chronic kidney disease (CKD)?LAB: P-Comprehensive Metabolic Panel (CMP) (Collection Date & Time - 07/31/2023 09:15 AM)?Cl 110, co2 119, creat 1.03, gfr 59* Value Reference Range A /G Ratio 2.0 1.1-2.5 - mg/dL * A lbumin 4.1 3.5-5.3 - g/dL * A lkaline Phosphatase 55 35-121 - IU/L * A LT (SGPT) 12 <5-47 - IU/L * A ST (SGOT) 27 <5-40 - IU/L * B ilirubin, Total 0.5 <0.2-1.2 - mg/dL * B UN 20 8-23 - mg/dL * C alcium 8.8 8.6-10.4 - mg/dL * C hloride 110 H 97-108 - mEq/L * C O2 19 L 22-32 - mEq/L * C reatinine 1.03 H 0.50-1.00 - mg/dL * G lucose 91 65-99 - mg/dL * P otassium 4.1 3.5-5.3 - mEq/L * S odium 145 135-145 - mEq/L * P rotein 6.2 6.0-8.3 - g/dL * e GFR by Creatinine 59 L >59 - mL/min/1.73m2 * Snow Trotter 08/02/2023 8:51 :31 AM >See phone encounter ?LAB: P-Phosphorus (Collection Date & Time - 07/31/2023 09:15 AM)?Normal* Value Reference Range P hosphorus 3.4 2.5-4.5 - mg/dL * Snow Trotter 08/02/2023 8:51 :31 AM >See phone encounter ?LAB: P-Parathyroid Hormone (PTH) Intact (Collection Date & Time - 07/31/2023 09:15 AM)?71.3* Value Reference Range P arathyroid Hormone (PTH) Intact 71.3 H 15.0-65. 0 - pg/mL * Snow Trotter 08/02/2023 8:51 :31 AM >See phone encounter 4.?Chronic GERD? Continue Omeprazole Capsule Delayed Release, 40 MG, Take 1 capsule by mouth once daily.??5.?Age-related osteoporosis without current pathological fracture? Continue Alendronate Sodium Tablet, 70 MG, 1 tab(s), orally, once a week.?LAB: P-Vitamin D 25-Hydroxy (Collection Date & Time - 07/31/2023 09:15 AM)? 30.8* Value Reference Range V itamin D 25-Hydroxy 30.8 30.0-100.0 - ng/mL * Snow Trotter 08/02/2023 8:51 :31 AM >See phone encounter * Procedure Codes: G 2211 Complex e/m visit add on * Follow Up: 6 Months * Images: Billing Information: * Visit Code: 35112 Office Visit, Est Pt., Level 4. * Procedure Codes: G2211 Complex e/m visit add on. * Electronic signature of Concha Mcneill MD on 11/18/2024 at 02:04 PM EDT Sign off status: Pending * Provider: Gabrielle Mcneill M.D. Date: 0 07/31/2023 Generated for Harsh amin/Morena/Roroitting on: 1 02:04 PM EDT History and Physical Notes * HPI (History of Present Illness) Category Sub-Category Detail Notes Category Not es Endocrinology Maintenance Pt is fasting today Cardiology Blood Pressure Elevated Pt prese nts today for a check up. Pt sts that she has no new concerns or complaints at this time Examination Category Sub-Category Detail Notes Category Not es Cardiology Lungs: clear, no rales or wheezes HEENT: unremarkable Heart sounds: RRR, normal S1, S2 Extremities: no leg edema Peripheral pulses: 2 plus bilateral General Appearance: pleasant, NAD
--- OUTSIDE RECORDS SUMMARY | 2024-01-30 06:30 | XMS_ITS ---
Author Organization [facility] Address [address] [place] [id number] Care Team Providers Care Bird Cage Assembler Name Role Phone Cuba Mcneill Primary Care Provider [phone] Allergies Allergen (clinical drug ingredient) Drug/Non Drug Allergy documented on EMR Reaction Allergy Type Onset Date Status Sulfamethoxazole Unknown Drug Allergy Active Results Component Value Reference Range Notes P-Basic Metabolic Panel (BMP ) Reviewed date:01/31/2024 12:11:36 PM Interpretation:Na 146, chlor 111 Performing Lab: Notes/Report: Test performed by [facility] [address] [place] [address] , [place] [address] Cuauhtemoc Olmedo MD, Food Service Ambassador CLIA: [id number] Sodium 146 135-145 mmol/L Potassium 4.3 3.5-5.3 mmol/L Chloride 111 97-108 mmol/L CO2 24 22-32 mmol/L Glucose 96 65-99 mg/dL BUN 18 8-23 mg/dL Creatinine 0.98 0.50-1.00 mg/dL Calcium 8.7 8.6-10.4 mg/dL eGFR by Creatinine 63 >59 mL/min/1.73m2 P-Parathyroid Hormone (PTH) Intact Reviewed date:01/31/2024 12:11:36 PM Interpretation:88.6 Performing Lab: Notes/Report: Test performed by [facility] [address] [place], [place] [address] , [address], [place] [address] Cuauhtemoc Olmedo MD, Food Service Ambassador CLIA: [id number] Parathyroid Hormone (PTH) Intact 88.6 15.0-65.0 pg/mL P-Vitamin D 25-Hydroxy Reviewed date:01/31/2024 12:11:36 PM Interpretation:32 Performing Lab: Notes/Report: Test performed by [facility] [address] [place] [address] , [address], [place] [address] Cuauhtemoc Olmedo MD, Food Service Ambassador CLIA: [id number] Vitamin D 25-Hydroxy 32.0 30.0-100.0 ng/mL Interpretation [...] Status Risk Notes Problem Vitamin D deficiency (67097013) Vitamin D deficiency (E55.9) Active confirmed Vital Signs Blood pressure systolic 120 mm Hg 01/30/20 24 Blood pressure diastolic 72 mm Hg 024 Heart Rate 70 /min 01/30/2024 Height 65 in 01/30/2024 Weight 168.4 lbs 01/30/2024 BMI 28.02 kg/m2 01/30/2024 Encounters Encounter Location Date Provider Diagnosis Jennifer 1210 [facility] [address] [facility] [address] [place], [place] [id number] 01/30/2024 Cuba Mcneill Essential hypertensi on I10 [...] Name:Cuba Yan , 01/23/2025 09:15:00 AM, 1210 [facility] [address] [facility], [address], [place], [place], [id number], Progress Notes * OBED BLANKDOB:1955 (69 yo F)Acc No.[id number]:01/30/2024 Progress Notes Patient: OBED LIGHT Provider: Gabrielle Mcneill M.D. :1955 A ge:68 Y S ex:Female Date:01/30/2024 Address:[address] [place] [address] [facility] Subjective: * Chief Complaints: * 1 . [...] , Colonoscopy 02/2016, Bilateral Neck Injections - [facility] 03/2020. * Hospitalization/Major Diagno stic Procedure: [...] * Images: Billing Information: * Visit Code: 22979 Office Visit, Est Pt., Level 4. * Procedure Codes: G2211 Complex e/m visit add on. * Electronic signature of Concha Mcneill MD on 11/18/2024 at 02:05 PM EDT Sign off status: Pending * Provider: Gabrielle Mcneill M.D. Date: 1 04/01/2023 Generated for Harsh amin/Morena/Chinosmitting on: 1 02:05 PM EDT History and Physical Notes * [...]
--- OUTSIDE RECORDS SUMMARY | 2024-07-23 05:45 | XMS_ITS ---
Author Organization [facility] Address [address] [place] [phone] Care Team Providers Care Global Engineering Manager Name Role Phone Osito [place] Primary [...] 07/23/2024 Encounters Encounter Location Date [facility] [address] [id number] 07/23/2024 Cuba Mcneill Essential hypertensi on I10 [...] [address], [place], [id number], Progress Notes * OBED BLANKDOB:1955 (69 yo F)Acc No.[id number]:07/23/2024 Progress Notes Patient: OBED LGIHT Provider: Gabrielle Mcneill M.D. :1955 A ge:69 Y S ex:Female Date:07/23/2024 Address:[facility] Subjective: * Chief Complaints: * 1 . [...] , Colonoscopy 02/2016, Bilateral Neck Injections - [facility] 03/2020. * Hospitalization/Major Diagno stic Procedure: D [...] Depressive disorder - F32.9 7 . B [place] 27.0-27.9,adult - Z68.27 Plan: * Treatment: 2.?Pure [...] * Images: Billing Information: * Visit Code: 30226 Office Visit, Est Pt., Level 4. * [...] 0 07/23/2024 Generated for Harsh amin/Morena/eTransmitting on: 1 02:05 PM EDT History and Physical Notes * HPI (History of Present Illness) Category Sub-Category Detail Notes Category Not es Cardiology Blood Pressure Elevated Pt here for 6 mo f/u on hypertension. Pt states she is doing well and does not have any concerns today Hyperlipidemia Pt is not fasting to day
--- OUTSIDE RECORDS SUMMARY | 2024-07-24 04:35 | XMS_ITS ---
[facility] [address] [place] [phone] Care Team Providers Care Maritime Engineer Name Role Phone OsitoMadyCuba Primary Care Provider Results Component Value Reference Range Notes P-Comprehensive Metabolic Pa jennifer (CMP) Reviewed date:07/25/2024 11:29:04 AM Interpretation:Normal Performing Lab: Notes/Report: Test performed by [facility] [address] , [address], [place] [address] Cuauhtemoc Olmedo MD, Glaze Maker CLIA: [id number] Sodium 143 135-145 mmol/L Potassium 4.0 3.5-5.3 [...] 135 Performing Lab: Notes/Report: Test performed by [facility] [address] [facility] [address], [place] [address] Cuauhtemoc Olmedo MD, Glaze Maker VIJAYA: [id number] Cholesterol 198 <200 mg/dL Triglycerides 81 <150 [...] Interpretation:Normal Performing Lab: Notes/Report: Test performed by [facility] [address] [place] [address] , [facility], [place] [address] Cuauhtemoc Olmedo MD, Glaze Maker CLIA: [id number] TSH reflex to FT4 2.74 0.43-5.25 mU/L P-Microalbumin/Creatinine, R andom Urine Sample Reviewed date:07/25/2024 11:29:05 AM Interpretation:Normal Performing Lab: Notes/Report: Test performed by [facility] [address] , [facility], [place] [address] Cuauhtemoc Olmedo MD, Glaze Maker CLIA: [id number] Albumin/Creatinine Ratio, Urine 2 0-30 ug/m g Microalbumin, Urine, Random 0.3 Creatinine, Urine 131.9 P-Vitamin D 25-Hydroxy Reviewed date:07/25/2024 11:29:05 AM Interpretation:42.2 Performing Lab: Notes/Report: Test performed by [facility] [address] [place] [address] , [facility] [address], [place] [address] Cuauhtemoc Olmedo MD, Glaze Maker CLIA: [id number] Vitamin D 25-Hydroxy 42.2 30.0-100.0 ng/mL Interpretation [...] Encounter Location Date Provider Diagnosis [facility] [facility] 36 [facility] [address] [place] [phone] 07/24/2024 Cuba Mcneill Essential hypertensi on I10 [...] Name:Cuba Yan ry, 01/23/2025 09:15:00 AM, [address] [facility] 36 [facility], [address], [place], [place], [phone], Progress Notes * OBED BLANKDOB:1955 (69 yo F)Acc No.[id number]:07/24/2024 Patient: OBED LIGHT Provider: Gabrielle Mcneill M.D. :1955 A ge:69 Y S ex:Female Date:07/24/2024 Address[facility] Subjective: * Chief Complaints: * 1 . [...] 0 07/24/2024 Generated for Harsh amin/Morena/Vivian on: 1 02:05 PM EDT
--- NOTE | 2024-11-18 14:03 | XR_ITS ---
FINAL REPORT CLINICAL HISTORY: evaluation of left 3rd met fracture, pain x 3 -4 months COMPARISON: 08/24/2023 FINDINGS: LEFT FOOT Three views of the left foot demonstrate a fracture of the distal shaft of the third metatarsal with callus formation, unchanged from recent exam. No new bony abnormality is identified. There is degenerative joint disease, most pronounced of the first tarsometatarsal joint which is stable. The visualized joint spaces are normally aligned. The soft tissues are unremarkable. IMPRESSION: Stable fracture of the distal shaft of the third metatarsal with callus formation. Reviewed, Interpreted and Dictated by Aurea Alan MD Transcribed by Katelynn Flynn Authenticated and [facility]
--- OUTSIDE RECORDS SUMMARY | 2024-11-18 14:04 | XMS_ITS | Clinical Summary ---
Author Organization Ashwin Diaz [facility] Address [address] [place] [address], [address] [place] [id number] Care Team Providers Care Russian Language Instructor Name Role Phone Unavailable Primary Care Provider [...]
--- OUTSIDE RECORDS SUMMARY | 2024-11-18 14:04 | XMS_ITS | Referral Summary ---
Author Organization [employer] ([place], [place], [place], [place]) Address [address] [place] [address] Care Team Providers Care Professor Of Psychiatry Name Role Phone Unavailable Primary Care Provider [...]
--- OUTSIDE RECORDS SUMMARY | 2024-11-18 14:04 | XMS_ITS | Clinical Summary ---
Author Organization [facility] Address [address] [place] [address] Care Team Providers Care Merchandise Distributor Name Role Phone Cuba Mcneill MD Primary Care Provider [phone] Social History Tobacco Use Types Packs/Day Years [...] Screening 02/29/202402/13, 12/15/2020, 11/22/2019, Additional history exists [id number] Vaccine ( season) 2024 11/11/2020, 06/04/2020, 04/25/2020 [...] patient's age to complete this topic Insurance [address] [address] MEDICARE GENERIC COMMERCIAL Care Teams Merchandise Distributor Relationship Specialty Start Date End Date Cuba Mcneill MD [address] [place] [id number] [facility] - General 06/02/22
--- OUTSIDE RECORDS SUMMARY | 2024-11-18 14:05 | XMS_ITS | Clinical Summary ---
Author Organization [employer] [facility] ([place], [place], [place], [place]) Address [address] [place] [address] Care Team Providers Care Hospital Carrier Name Role Phone Unavailable Primary Care Provider [...]
--- OUTSIDE RECORDS SUMMARY | 2024-11-18 14:05 | XMS_ITS | Patient Health Record ---
[facility] Address [address] [place] [id number] Care Team Providers Care Shift Commander Name Role Phone Cuba Mcneill Primary Care Provider [phone] Allergies Allergen (clinical drug ingredient) Drug/Non Drug Allergy documented on EMR Reaction Allergy Type Onset Date Status Sulfamethoxazole Unknown Drug Allergy Active Results Component Value Reference Range Notes Bone density Reviewed date:08/13/2024 10:19:38 AM Interpretation:osteoporosis and osteopenia Performing Lab: Notes/Report: osteoporosis and osteopenia P-Vitamin D 25-Hydroxy Reviewed date:07/25/2024 11:29:05 AM Interpretation:42.2 Performing Lab: Notes/Report: Test performed by [facility] [address] [place], [place] [address] , [address], [place] [address] Cuauhtemoc Olmedo MD, Machinist General CLIA: [id number] Vitamin D 25-Hydroxy 42.2 30.0-100.0 ng/mL Interpretation of Vitamin D 25 OH: < 20 ng/mL - Deficiency 20 - 29 ng/mL - Insufficiency 30 - 100 ng/mL - Sufficiency > 100 ng/mL - Super-therapeutic- toxicity may occur above this level. Clinical correlation required. P-Microalbumin/Creatinine, R andom Urine Sample Reviewed date:07/25/2024 11:29:05 AM Interpretation:Normal Performing Lab: Notes/Report: Test performed by [facility] [address] [place], [place] [address] , [address], [place] [address] Cuauhtemoc Olmedo MD, Machinist General CLIA: [id number] Albumin/Creatinine Ratio, Urine 2 0-30 ug/m g Microalbumin, Urine, Random 0.3 Creatinine, Urine 131.9 P-TSH reflex to FT4 Reviewed date:07/25/2024 11:29:05 AM Interpretation:Normal Performing Lab: Notes/Report: Test performed by [facility] [address] [place] [address] [place] [address] Cuauhtemoc Olmedo MD, Machinist General CLIA: [id number] TSH reflex to FT4 2.74 0.43-5.25 mU/L P-Lipid Panel Reviewed date:07/25/2024 11:29:04 AM Interpretation:non-hdl 151, ldl 135 Performing Lab: Notes/Report: Test performed by [facility] [address] [place] [address] [address] , [place] [address] Cuauhtemoc Olmedo MD, Machinist General CLIA: [id number] Cholesterol 198 <200 mg/dL Triglycerides 81 <150 [...] Interpretation:Normal Performing Lab: Notes/Report: Test performed by [facility] [address] [place] [address] , [address], [place] [address] Cuauhtemoc Olmedo MD, Machinist General CLIA: [id number] Sodium 143 135-145 mmol/L Potassium 4.0 3.5-5.3 [...] order Performing Lab: Notes/Report: see duplicate order P-Basic Metabolic Panel (BMP ) Reviewed date:01/31/2024 12:11:36 PM Interpretation:Na 146, chlor 111 Performing Lab: Notes/Report: Test performed by [facility] [address] [place] [address] [address], [place] [address] Cuauhtemoc Olmedo MD, Machinist General CLIA: [id number] Sodium 146 135-145 mmol/L Potassium 4.3 3.5-5.3 mmol/L Chloride 111 97-108 mmol/L CO2 24 22-32 mmol/L Glucose 96 65-99 mg/dL BUN 18 8-23 mg/dL Creatinine 0.98 0.50-1.00 mg/dL Calcium 8.7 8.6-10.4 mg/dL eGFR by Creatinine 63 >59 mL/min/1.73m2 P-Parathyroid Hormone (PTH) Intact Reviewed date:01/31/2024 12:11:36 PM Interpretation:88.6 Performing Lab: Notes/Report: Test performed by [facility] [address] [place] [address] [address], [place] [address] Cuauhtemoc Olmedo MD, Machinist General CLIA: [id number] Parathyroid Hormone (PTH) Intact 88.6 15.0-65. 0 pg/mL P-Vitamin D 25-Hydroxy Reviewed date:01/31/2024 12:11:36 PM Interpretation:32 Performing Lab: Notes/Report: Test performed by [facility] [address] [place] [address], [place] [address] Cuauhtemoc Olmedo MD, Machinist General CLIA: [id number] Vitamin D 25-Hydroxy 32.0 30.0-100.0 ng/mL Interpretation of Vitamin D 25 OH: < 20 ng/mL - Deficiency 20 - 29 ng/mL - Insufficiency 30 - 100 ng/mL - Sufficiency > 100 ng/mL - Super-therapeutic- toxicity may occur above this level. Clinical correlation required. Reason For Referral No Information Medications Medication [...] 4 hrs Active Citalopram Hydrobromide 20 MG Take 1 tablet by mouth once daily; Duration: 90 Active Irbesartan 300 MG 1 tablet Orally [...] Status W/U Status Risk Notes Problem Insomnia (501485248) Insomnia (G47.00) Active c onfirmed Problem Vitamin D deficiency (19288983) Vitamin D deficiency (E55.9) Active confirmed Problem Essential hypertension (91483076) Essential hypertension (I10) Active confirmed Problem Osteopenia (256288118) Osteopenia (M85.80) Active confirmed Problem Sciatica (31359563) Lumbago with sciatica, right side (M54.41) Active confirmed Problem Chronic pain (72085062) Other chronic pain (G89.29) Active confirmed Problem Primary generalised osteoarthritis (164348676) Primary osteoarthritis, unspecified site (M19.91) Active confirmed Problem Age-related osteoporosis (446255197) Age-related osteoporosis without current pathological fracture (M81.0) Active confirmed Problem Depressive disorder (54586639) Depressive disorder (F32.9) Active confirmed Problem Renal insufficiency (325305094) Renal insufficiency (N28.9) Active confirmed Problem Gastroesophageal reflux disease (disorder) (155763115) Chronic GERD (K21.9) Active confirmed Problem Cervical spondylosis without myelopathy (175725013) Osteoarthritis of spine with radiculopathy, cervical region (M47.22) Active confirmed Problem Cataract (950850233) Cataracts, bilateral (H26.9) Active confirmed Problem Pure hypercholesterolemia (781189850) Pure hypercholesterolemia (E78.00) Active confirmed Problem Atelectasis (91231816) Atelectasis of left lung (J98.11) Active confirmed Problem Adjustment disorder with depressed mood (44590544) Grief reaction (F43.21) Active confirmed Problem Primary hypertension (44415174) Primary hypertension (I10) Active confirmed Problem Chronic kidney disease stage 3A (disorder) (319388441) Stage 3a chronic kidney disease (CKD) (N18.31) Active confirmed Vital Signs Heart Rate 88 /min 07/23/2024 Blood pressure diastolic 70 mm Hg 07/23/2024 Height 65 in 07/23/2024 Blood pressure systolic 118 mm Hg 07/23/2024 Weight 167.6 lbs 07/23/2024 BMI 27.89 kg/m2 07/23/2024 Encounters Encounter Location Date Provider Diagnosis [facility] [address] [place], [place] [id number] 01/30/2024 [place] Essential hypertensi on I10 ; Stage 3a chronic kidney disease (CKD) N18.31 ; Vitamin D deficiency E55.9 ; Depressive disorder F32.9 and Encounter for immunization Z23 [facility] [address] [place], [place] [id number] 07/23/2024 [place] Essential hypertensi on I10 ; Pure hypercholesterolemia E78.00 ; Vitamin D deficiency E55.9 ; Insomnia G47.00 ; Stage 3a chronic kidney disease (CKD) N18.31 ; Depressive disorder F32.9 and BMI 27.0-27.9,adult Z68.27 [facility] [address] [facility] [address] [place], [place] [id number] 07/24/2024 [place] Essential hypertensi on I10 ; Pure hypercholesterolemia E78.00 and Vitamin D deficiency E55.9 [facility] [address] [place], [place] [id number] 01/31/2024 [place] [facility] [address] [place] [id number] 02/09/2024 [place] [facility] [address] [place] [id number] 02/12/2024 [place] Age-related osteopor osis without current pathological fracture M81.0 [facility] [address] [place], [place] [id number] 04/08/2024 [place] Lumbago with sciatic a, right side M54.41 [facility] [address] [place] [id number] 07/25/2024 [place] [facility] [address] [place], [place] [id number] 07/27/2024 [place] Screening for osteop orosis Z13.820 [facility] [address] [place], [place] [id number] 10/07/2024 [place] Lumbago with sciatic a, right side M54.41 [facility] [address] [place], [place] [id number] 11/23/2023 [place] [facility] [address] [place] [id number] 04/08/2024 [place] [facility] [address] [place] [id number] 07/12/2024 [place] [facility] [address] [place] [id number] 07/13/2024 [place] [facility] [address] [place] [id number] 07/13/2024 [place] [facility] [address] [place] [id number] 08/12/2024 [place] Assessments Encounter Date Diagnosis (ICD Code) Assessment [...] Name:Cuba ortiz, 01/23/2025 09:15:00 AM, [address] [facility] [address] [facility], [address], [place], [place], [id number], Insurance Providers Payer Name Payer Address Payer Phone Subscriber Number Group Number Insured Name Patient Relationship to Insured Coverage Start Date Coverage End Date [employer] (MEDICAR E) [address] [address] [place] [address] [id number] OBED BLANK Self - patient is the [...] Replacement Colonoscopy 02/2016 Bilateral Neck Injections - [facility] 03/2020 Hospitalization History Reason Date(Month/Year)
--- OUTSIDE RECORDS SUMMARY | 2024-11-18 14:05 | XMS_ITS | Encounter Summary ---
Author Organization [employer] ([place], [place], [place], [place]) Address [address] [place] [address] Care Team Providers Care Coconut Jelly Roller Name Role Phone Unavailable Primary Care Provider Unavailabl e Encounter Details Date Type Department Care Team (Late st Contact Info) Description 04/13/2018 Transcribed Document [facility] [facility] [place] [address] ProviderBren MD [address] [place] [id number] Social History Tobacco Use Types Packs/Day Years Used Date Smoking Tobacco: Never Assessed Comments Unknown Sex and Gender Information Value Date Recorded Sex Assigned at Not on file Legal Sex Female 3:10 PM CDT Gender Identity Not on file Sexual Orientation Not on file documented as of this encounter Miscellaneous Notes * [employer] Conversion Note - Bren ProviderMD - 04/13/2018 2:04 PM LOAN ANALYST DATE OF ADMISSION: 04/13/2018 HISTORY OF PRESENT ILLNESS: This is a 62-year-old female with a chief complaint of chronic neck and lower back pain for several years' duration. The patient presents today for an initial consultation evaluation. She was referred to this clinic by Dr. Phillip aGsca, her primary care provider. The patient states [...] CC2: Stefania Gasca MD Electronically signed by [facility] Conversion Racing Driver Cerner at 05/31/2022 8:04 PM CDT documented in this encounter Plan of Treatment Not on file documented as of this encounter Visit Diagnoses Not on filedocumented in this encounter
--- OUTSIDE RECORDS SUMMARY | 2024-11-18 14:05 | XMS_ITS | Clinical Summary ---
Author Organization [facility] Address [address] [place] [address] Care Team Providers Care Disability Benefits Specialist Name Role Phone Cuba Mcneill MD Primary Care Provider [phone] Allergies Active Allergy Reactions Criticality Noted Date [...] (11/03/2016): Added automatically from request for surgery [id number] Knee joint pain 10/30/2013 Family History Medical [...] Information Value Date Recorded Sex Assigned at Female 11/18/2024 9:14 AM EDT Legal Sex Female 11:04 AM EDT Gender [...] 06/20/2024 3:00 PM EDT Plan of Treatment Upcoming Encounters Date Type Department Care Team (Late st Contact Info) Description 11/20/2024 8:00 AM EDT Office Visit [facility] PAIN MANAGEMENT [address] [facility] [address] [place] [id number] Venita Roberto, MINE ADMINISTRATOR SUPERVISOR [address] [facility] [address] [place] [address] Health Maintenance Due Date Last Done Comments COLOGUARD 06/14/2000 COLON CANCER SCREENING 5 YEA R SIGMOIDOSCOPY 06/14/2000 COLONOSCOPY 06/14/2000 COLORECTAL CANCER SCREENING 06/14/2000 CT COLONOGRAPHY 06/14/2000 FECAL OCCULT BLOOD TEST 06/14/2000 FIT Testing (1 year) 06/14/2000 ANNUAL WELLNESS VISIT 11/03/2016 HEPATITIS C SCREENING 11/03/2016 DXA SCAN 10/16/2020 10/16/2018 INFLUENZA VACCINE 09/13/2024 11/23/2021, , 10/30/2019, Additional history exists COVID-19 Vaccine (2024- 6 season) 2024 11/11/2020, 06/04/2020, 04/25/2020 MAMMOGRAM 06/18/2026 06/18/2024, 06/2024, 04/17/2023, Additional history exists TDAP/TD VACCINES (2 - Td or Tdap) 07/16/2033 024 ZOSTER VACCINE Completed 01/03/2020, 10/30/2019 Pneumococcal Vaccine 50+ Completed 12/01/2021, 10/14 Medical Devices Implanted Type Area Chief Information Security Officer Device Identifier Shelf Expiration Date Model / Serial / Lot Cmt Bone Endurance Smartset 40gm - [id number] Implanted:Qty : 2 on 11/23/2016 by Ashwin Nava MD at [facility] Implant Left: Knee [employer] 04/12/2018 [id number] / / [id number] Stem Tib Persona Cmt 5d Eyal Lt - [id number] Implanted:Qty : 1 on 11/23/2016 by Ashwin Nava MD at [facility] Implant Left: Knee [employer] 07/13/2026 [id number] / / [id number] Comp Fem Persona Ps Cocr Cmt Nrw Sz6 Lt - [id number] Implanted:Qty : 1 on 11/23/2016 by Ashwin Nava MD at [facility] Implant Left: Knee [employer] 12/13/2025 [id number] / / [id number] Ext Stem Persona Tpr 14bzpz74ak - [id number] Implanted:Qty : 1 on 11/23/2016 by Ashwin Nava MD at [facility] Implant Left: Knee [employer] 11/12/2026 [id number] / / [id number] Description:NOT INCLUDED IN CAP CHARGE Pat Persona Allpoly Cmt 8x29mm - [id number] Implanted:Qty : 1 on 11/23/2016 by Ashwin Nava MD at [facility] Implant Left: Knee [employer] 08/12/2024 [id number] / / [id number] Art/Srf Kn Persona/Ve Ps Mc Ef Sz12 12mm Lt - [id number] Implanted:Qty : 1 on 11/23/2016 by Ashwin Nava MD at [facility] Implant Left: Knee [employer] 07/13/2021 [id number] / / [id number] Totl Kn Fm Xavier Ve Cps Rogelio - [id number] Implanted:Qty : 1 on 11/23/2016 by Ashwin Nava MD at [facility] Implant Left: Knee [facility] CAPKNEETOTALZI M6 / / Baseplt Tib Triath Ts No3 - [id number] Implanted:Qty : 1 on 02/01/2017 by Chuy Cervantes MD at [facility] Implant Right: Knee [employer] 12/22/2021 [id number] / / [id number] Comp Fem Triath Cr No4 Rt - [id number] Implanted:Qty : 1 on 02/01/2017 by Chuy Cervantes MD at [facility] Implant Right: Knee [employer] 11/03/2021 [id number] / / [id number] [id number] Tib Triath C/S X3 Sz3 13mm - [id number] Implanted:Qty : 1 on 02/01/2017 by Chuy Cervantes MD at [facility] Implant Right: Knee [employer] 09/22/2021 [id number] / / [id number] Pat Triath Asym X3 9x29mm - [id number] Implanted:Qty : 1 on 02/01/2017 by Chuy Cervantes MD at [facility] Implant Right: Knee [employer] 08/03/2021 [id number] / / [id number] Tot[address] Kn Hi Demand [place] - [id number] Implanted:Qty : 1 on 02/01/2017 by Chuy Cervantes MD at [facility] Implant Right: Knee [employer] CAPKNTOTLHIDEM STRY2 / / Cmt Bone Simplex/P Full Dose 10/Pk - [id number] Implanted:Qty : 2 on 02/01/2017 by Chuy Cervantes MD at [facility] Implant [employer] 07/14/2019 [id number] / / [id number] Explanted Type Area Chief Information Security Officer Device Identifier Shelf Expiration Date Model / Serial / Lot Scrw Hunter Mccoy Fml 2.5x25mm - [id number] Implanted:Qty : 1 Explanted:Qty : 1 on 11/23/2016 at [facility] Implant Left: Knee [employer] 09/12/2026 [id number] / / [id number] Procedures Procedure Name Priority Date/Time Associated Diagnosis [...] Most Recently Relevant to Health Maintenance Insurance Dao [place] [id number] [facility] MEDICARE ADVANTAGE PPO Advance Directives * Full Code (Latest Code Status on File) Date Activated Date Inactivated Comments 02/01/2017 2:03 PM 02/03/2017 3:59 PM * Full Code Date Activated Date Inactivated Comments 11/23/2016 5:26 PM 11/25/2016 4:23 PM Care Teams Disability Benefits Specialist Relationship Specialty Start Date End Date Cuba Mcneill MD [address] [facility] [address] [place] [id number] PCP - General Senior Writer 03/02/20
--- OUTSIDE RECORDS SUMMARY | 2024-11-18 14:05 | XMS_ITS | Encounter Summary ---
Author Organization [facility] Address [address] [place] [address] Care Team Providers Care Press Operator [employer] Name Role Phone Cuba Mcneill MD Primary Care Provider [phone] Encounter Details Date Type Department Care Team (Late st Contact Info) Description 06/24/2024 Results Follow-Up [facility] [address] [place] [address] Rochelle Brunson, [employer] FLATBED DRIVER [address] [facility] [address] [place] [id number] Social History Tobacco Use Types Packs/Day Years [...] as of this encounter Plan of Treatment Upcoming Encounters Date Type Department Care Team (Late st Contact Info) Description 11/20/2024 8:00 AM EDT Office Visit [facility] PAIN MANAGEMENT [address] [facility] [place] [address] Venita Roberto, [employer] FLATBED DRIVER [address] [facility] [address] [place] [address] documented as of this encounter Visit Diagnoses Not on filedocumented in this encounter Care Teams Press Operator [employer] Relationship Specialty Start Date End Date Cuba Mcneill MD [address] [facility] [address] [facility] [address] [place] [address] PCP - General Automobile Body Repair Chief 03/02/20 documented as of this encounter
== END 2024-11-18 23:59 | disposition home or self-care (01) ==
LOC: RAD 14:02
PROVIDERS: PCP Family Medicine; Visit Provider Podiatrist
DX: S92.335D Nondisplaced fracture of third metatarsal bone, left foot, subsequent encounter for fracture with routine healing (principal); X58.XXXD Exposure to other specified factors, subsequent encounter
CPT/HCPCS: 73630